=== PATIENT | male | born 1945 | race Caucasian/White ===

== ENCOUNTER 2017-01-21 18:17 | Inpatient (IN) | payer MEDICARE, MEDICAID ==
[~2017-01-21] VITALS: Ht 182.9 cm; Wt 77.1 kg
[2017-01-21] MEDS ORDERED: Sodium Chloride 500ML 500 ML IV ONE (18:53)
[2017-01-21 19:07] VITALS: BP 126/69
[2017-01-21] MEDS ORDERED: Acetaminophen 650 MG SUPP RECTAL ONE (19:15)
[2017-01-21 19:48] LABS: BASOPHILS % (AUTO) 1.2 % (0.0-2.0); EOSINOPHILS % (AUTO) 1.3 % (0.0-3.0); LYMPHOCYTES % (AUTO) 20.8 % (20.0-45.0); MEAN CORPUSCULAR HEMOGLOBIN 28.4 PG (27.0-31.0); MEAN CORPUSCULAR HGB CONC 31.6 G/DL (32.0-36.0); MEAN CORPUSCULAR VOLUME 90 FL (80-99); MEAN PLATELET VOLUME 5.5 FL (6.5-10.1); MONOCYTES % (AUTO) 9.1 % (1.0-10.0); NEUTROPHILS % (AUTO) 67.6 % (45.0-75.0); PLATELET COUNT 307 K/UL (150-450); RED BLOOD COUNT 3.93 M/UL (4.70-6.10); RED CELL DISTRIBUTION WIDTH 13.9 % (11.6-14.8); WHITE BLOOD COUNT 11.1 K/UL (4.8-10.8)
[2017-01-21 20:03] LABS: ALANINE AMINOTRANSFERASE 12 U/L (3-41); ALBUMIN/GLOBULIN RATIO 0.9 (1.0-2.7); ANION GAP 13 (5-15); ASPARTATE AMINO TRANSFERASE 15 U/L (5-40); CARBON DIOXIDE 28 mEQ/L (20-30); CHLORIDE 96 mEQ/L (98-107); CREATININE 0.8 mg/dL (0.7-1.2); GLOMERULAR FILTRATION RATE > 60 mL/min (>60); HEMOLYSIS 16; POTASSIUM 4.1 mEQ/L (3.4-4.9); SODIUM 137 mEQ/L (135-145)
[2017-01-21 20:10] LABS: KETONES,URINE 2+ (NEGATIVE); LEUKOCYTE ESTERASE ,URINE 3+ (NEGATIVE); NITRITE,URINE NEGATIVE (NEGATIVE); PH,URINE 9 (4.5-8.0); PROTEIN,URINE 3+ (NEGATIVE); UROBILINOGEN,URINE NORMAL MG/DL (0.0-1.0)
[2017-01-21 20:11] LABS: APPEARANCE,URINE SLIGHTLY CLOUDY
[2017-01-21 20:18] LABS: BACTERIA,URINE MANY /HPF; WBC,URINE 15-20 /HPF (0 - 0)
[2017-01-21 20:42] LABS: TROPONIN I < 0.30 ng/mL (<=0.30)
[2017-01-21] MEDS ORDERED: Azithromycin 500 MG in NS 275 ML IV ONE (20:45)
[2017-01-21] MEDS ORDERED: Piperacillin/Tazobactam 3.375 GM in NS 110 ML IVPB ONE (20:45)
[2017-01-21 20:47] LABS: CKMB 2.1 ng/mL (< 6.7)
[2017-01-21] MEDS ORDERED: LUBRICANT EYE15 M1 OP (22:07)
[2017-01-21] MEDS ORDERED: ATIVAN0.5 MG ORAL (22:07)
[2017-01-21] MEDS ORDERED: VITAMIN D1000 UNI1 ORAL (22:07)
[2017-01-21] MEDS ORDERED: RESTORIL15 MG ORAL (22:20)
[2017-01-21] MEDS ORDERED: LACTULOSE20 GM/301 ORAL (22:20)
[2017-01-21] MEDS ORDERED: METFORMIN HCL500 M1 ORAL (22:20)
[2017-01-21] MEDS ORDERED: DUONEB 0.5-3(2.53 ML HHN (22:20)
[2017-01-21] MEDS ORDERED: ALUM-MAG HYDRO360 ML PO (22:20)
[2017-01-21] MEDS ORDERED: SENNA8.6 M2 PO (22:20)
[2017-01-21] MEDS ORDERED: ACIDOPHILUS1 EAC6 PO (22:20)
[2017-01-21] MEDS ORDERED: MILK OF MA400 MG/51 ORAL (22:20)
[2017-01-21] MEDS ORDERED: COLACE100 MG ORAL (22:20)
[2017-01-21] MEDS ORDERED: NORVASC5 MG ORAL (22:20)
[2017-01-21] MEDS ORDERED: VITAMIN C250 MG ORAL (22:20)
[2017-01-21] MEDS ORDERED: MAG-OXIDE400 M1 PO (22:20)
[2017-01-21] MEDS ORDERED: MULTIVITAMINS1 EAC2 ORAL (22:20)
[2017-01-21] MEDS ORDERED: DULCOLAX10 MG RC (22:20)
[2017-01-21] MEDS ORDERED: TAMSULOSIN HCL0.4 MG ORAL (22:20)
[2017-01-21] MEDS ORDERED: LIPITOR40 MG ORAL (22:20)
[2017-01-21] MEDS ORDERED: COREG3.125 MG ORAL (22:20)
[2017-01-21] MEDS ORDERED: ACETAMINOPHEN325 M1 ORAL (22:20)
[2017-01-21] MEDS ORDERED: Zosyn 3.375gm inj ONE (22:22)
[2017-01-21 22:29] VITALS: BP 121/58
--- NOTE | 2017-01-21 22:57 | Emergency Room Report ---
History of Present Illness General Chief Complaint: Fever Source: Family Member, Medical Record Present Illness HPI 71-year-old male presents ED for evaluation. Per EMS patient noted to have fever and congestion x1 day. Patient resides in senior care. Patient is febrile in triage. Patient has history of CVA and unable to provide any additional history at this time. Showing no signs of distress upon arrival. Brother at bedside states that patient has been admitted multiple times for pneumonia. No other aggravating relieving factors. No other associated symptoms Allergies: Coded Allergies: No Known Allergies (Unverified , 01/21/17) Patient History Past Medical History: HTN, CVA/TIA, psych hx Pertinent Family History: none Social History: Denies: smoking, alcohol use, drug use Immunizations: UTD Reviewed Nursing Documentation: PMH: Agreed, PSxH: Agreed Nursing Documentation-PMH Past Medical History: No History, Except For Hx Hypertension: Yes Hx Diabetes: Yes Hx Gastrointestinal Problems: Yes - dysphagia History Of Psychiatric Problem: Yes - Bipolar, Major depressive disorder.anxiety Hx Neurological Problems: Yes - Muscle weakness Hx Cerebrovascular Accident: Yes Review of Systems All Other Systems: negative except mentioned in HPI Physical Exam Vital Signs Date Time Temp Pulse Resp B/P (MAP) Pulse Ox O2 Delivery O2 Flow Rate FiO2 01/21/17 18:25 102.0 96 24 125/72 94 Nasal Cannula 4.0 Sp02 EP Interpretation: reviewed, normal General Appearance: no apparent distress, alert, GCS 15, non-toxic Head: normocephalic, atraumatic Eyes: bilateral eye normal inspection, bilateral eye PERRL ENT: hearing grossly normal, normal pharynx, no angioedema, normal voice Neck: full range of motion, supple/symm/no masses Respiratory: crackles, speaking full sentences Cardiovascular #1: regular rate, rhythm, no edema Cardiovascular #2: 2+ carotid (R), 2+ carotid (L), 2+ radial (R), 2+ radial (L) , 2+ dorsalis pedis (R), 2+ dorsalis pedis (L) Gastrointestinal: normal bowel sounds, non tender, soft, non-distended, no guarding, no rebound Rectal: deferred Genitourinary: normal inspection, no CVA tenderness Musculoskeletal: back normal, gait/station normal, normal range of motion, non- tender Neurologic: other - nonverbal Psychiatric: other - nonverbal Reflexes: 3+ bicep (R), 3+ bicep (L), 3+ tricep (R), 3+ tricep (L), 3+ knee (R) , 3+ knee (L) Skin: normal color, no rash, warm/dry, well hydrated Lymphatic: no adenopathy Medical Decision Making Diagnostic Impression: Primary Impression: Pneumonia Qualified Codes: J18.9 - Pneumonia, unspecified organism ER Course Hospital Course 71-year-old M presenting to ED with respiratory distress, cough and crackles Differential diagnoses include: Pneumonia, CHF exacerbation, pneumothorax, fluid overload Clinical course Patient placed on stretcher. On bus driver/monitor. After initial history and physical, I ordered labs, IV fluids, EKG, chest x-ray, blood cultures, UA. Labs -leukocytosis noted, hemoglobin/hematocrit stable, electrolytes okay, lactate okay troponins negative CXR - pneumonia EKG - NSR, no acute ischemic changes interpreted by me IV fluids given, antibiotics given Case discussed with Dr. Sadler and he agreed to the patient to his service for further care and support I feel this is a highly complex case requiring extensive working including EKG/ Rhythm strip, Xray/CT/US, Blood/urine lab work, repeat exams while in ED, and administration of strong opiates/narcotics for pain control, admission to hospital or close patient follow up. Diagnosis - pneumonia Patient admitted to floor in serious condition Labs Test 01/21/17 19:26 01/21/17 19:40 White Blood Count 11.1 K/UL (4.8-10.8) Red Blood Count 3.93 M/UL (4.70-6.10) Hemoglobin 11.1 G/DL (14.2-18.0) Hematocrit 35.3 % (42.0-52.0) Mean Corpuscular Volume 90 FL (80-99) Mean Corpuscular Hemoglobin 28.4 PG (27.0-31.0) Mean Corpuscular Hemoglobin Concent 31.6 G/DL (32.0-36.0) Red Cell Distribution Width 13.9 % (11.6-14.8) Platelet Count 307 K/UL (150-450) Mean Platelet Volume 5.5 FL (6.5-10.1) Neutrophils (%) (Auto) 67.6 % (45.0-75.0) Lymphocytes (%) (Auto) 20.8 % (20.0-45.0) Monocytes (%) (Auto) 9.1 % (1.0-10.0) Eosinophils (%) (Auto) 1.3 % (0.0-3.0) Basophils (%) (Auto) 1.2 % (0.0-2.0) Sodium Level 137 mEQ/L (135-145) Potassium Level 4.1 mEQ/L (3.4-4.9) Chloride Level 96 mEQ/L (98-107) Carbon Dioxide Level 28 mEQ/L (20-30) Anion Gap 13 (5-15) Blood Urea Nitrogen 15 mg/dL (7-23) Creatinine 0.8 mg/dL (0.7-1.2) Estimat Glomerular Filtration Rate > 60 mL/min (>60) Glucose Level 167 mg/dL (74-106) Calcium Level 9.0 mg/dL (8.6-10.2) Total Bilirubin 0.2 mg/dL (0.0-1.2) Aspartate Amino Transf (AST/SGOT) 15 U/L (5-40) Alanine Aminotransferase (ALT/SGPT) 12 U/L (3-41) Alkaline Phosphatase 94 U/L (40-129) Total Creatine Kinase 92 U/L (38-174) Creatine Kinase MB 2.1 ng/mL (< 6.7) Creatine Kinase MB Relative Index 2.2 Troponin I < 0.30 ng/mL (<=0.30) Pro-B-Type Natriuretic Peptide 1110 pg/mL (0-125) Total Protein 7.0 g/dL (6.6-8.7) Albumin 3.4 g/dL (3.5-5.2) Globulin 3.6 g/dL Albumin/Globulin Ratio 0.9 (1.0-2.7) Urine Color Yellow Urine Appearance Slightly cloudy Urine pH 9 (4.5-8.0) Urine Specific [place] 1.015 (1.005-1.035) Urine Protein 3+ (NEGATIVE) Urine Glucose (UA) Negative (NEGATIVE) Urine Ketones 2+ (NEGATIVE) Urine Occult Blood 4+ (NEGATIVE) Urine Nitrite Negative (NEGATIVE) Urine Bilirubin Negative (NEGATIVE) Urine Urobilinogen Normal MG/DL (0.0-1.0) Urine Leukocyte Esterase 3+ (NEGATIVE) Urine RBC 5-10 /HPF (0 - 0) Urine WBC 15-20 /HPF (0 - 0) Urine Squamous Epithelial Cells None /LPF (NONE/OCC) Urine Bacteria Many /HPF (NONE) EKG Diagnostic Results Rate: normal Rhythm: NSR ST Segments: no acute changes ASA given to the pt in ED: No Rhythm Strip Diag. Results EP Interpretation: yes Rhythm: NSR, no PVC's, no ectopy Chest X-Ray Diagnostic Results Chest X-Ray Diagnostic Results : Chest X-Ray Ordered: Yes # of Views/Limited/Complete: 1 View Indication: Shortness of Breath EP Interpretation: Yes Interpretation: no pneumothorax, no acute cardiopulmonary disease Impression: Other - pneumonia Electronically Signed by: Electronically signed by Tomasz Quick MD Last Vital Signs Date Time Temp Pulse Resp B/P (MAP) Pulse Ox O2 Delivery O2 Flow Rate FiO2 01/21/17 22:29 100.7 95 25 121/58 100 Nasal Cannula 2.0 Status: improved Disposition: ADMITTED INPATIENT Condition: Serious Referrals: ASAD SADLER (PCP) TOMASZ QUICK M.D. Jan 21, 2017 22:57
[2017-01-22] VITALS: BP 117/54
[2017-01-22] MEDS: cefTRIAXone 1 GM in D5W 55 ML IVPB SCH (00:15)
[2017-01-22] MEDS: D5NS 1,000 ML IV SCH ×3 (02:29→11:21)
[2017-01-22 08:22] VITALS: BP 138/80
[2017-01-22] MEDS: Heparin 5000 units/ml inj SUBQ SCH ×2 (09:00→21:36)
--- NOTE | 2017-01-22 10:23 | Diagnostic Imaging Report ---
Indication: Dyspnea Comparison: None A single view chest radiograph was obtained. Findings: Fine reticular opacities demonstrated bilaterally nonspecific. Mild interstitial edema is in the differential diagnosis. Heart size is relatively normal. There is mild elevation of the left hemidiaphragm. The bones are osteopenic. Aorta is ectatic. Impression: Interstitial markings nonspecific. Mild interstitial edema is possible. Mild left basal atelectasis/volume loss. Osteoporosis
[2017-01-22] MEDS ORDERED: LORazepam 0.5mg tab ORAL PRN (11:00)
[2017-01-22] MEDS ORDERED: Milk of Magnesia 30ml Ud ORAL PRN (11:00)
[2017-01-22 11:43] VITALS: BP 140/76
[2017-01-22] MEDS: Albuterol/Ipratropium 3ml neb HHN SCH ×4 (12:00→23:00)
[2017-01-22] MEDS: Promethazine Plain 6.25mg/5ml ORAL PRN ×2 (12:02→21:55)
[2017-01-22] MEDS: Lactobacillus-GG tablet ORAL SCH ×2 (13:00→17:58)
[2017-01-22] MEDS ORDERED: D5NS 1000ml IV ONE (15:12)
[2017-01-22] MEDS ORDERED: Tubing IV Secondary IV ONE (15:12)
[2017-01-22 15:41] VITALS: BP 149/79
[2017-01-22] MEDS: metFORMIN 500mg tab ORAL SCH (17:58)
[2017-01-22] MEDS: Magnesium Oxide 400mg tab ORAL SCH (17:58)
[2017-01-22] MEDS: Lactulose 20gm/30ml UDC ORAL SCH (17:58)
--- NOTE | 2017-01-22 18:38 | Consultation ---
History of Present Illness General Date patient seen: Jan 22, 2017 Chief Complaint: Fever Present Illness HPI 71-year-old male with hx of CVA, HTN, DM, half-way resident bed bound presented to ED for evaluation of fever and congestion x1 day. He is unable to provide any additional history at this time. Showing no signs of distress. Brother at bedside states that patient has been admitted multiple times for pneumonia. PT was febrile in Er and admitted for treatmetnt of his sepsis. Allergies: Coded Allergies: No Known Allergies (Unverified , 01/21/17) Medication History Scheduled Amlodipine Besylate (Norvasc), 5 MG ORAL DAILY, (Reported) Ascorbic Acid* (Vitamin C*), 250 MG ORAL DAILY, (Reported) Atorvastatin Calcium* (Lipitor*), 40 MG ORAL BEDTIME, (Reported) Carboxymethylcellulose Sodium (Lubricant Eye), 1 DRP OP THREE TIMES A DAY, ( Reported) Carvedilol (Coreg), 3.125 MG ORAL EVERY 12 HOURS, (Reported) Cholecalciferol (Vitamin D3)* (Vitamin D*), 2,000 UNITS ORAL DAILY, (Reported) Docusate Sodium* (Colace*), 100 MG ORAL DAILY, (Reported) Ipratropium/Albuterol Sulfate (DuoNeb 0.5-3(2.5)mg/3ml), 3 ML HHN EVERY 4 HOURS, (Reported) Lactobacillus Acidophilus (Acidophilus), 1 EACH PO THREE TIMES A DAY, (Reported) Lactulose (Lactulose*), 15 ML ORAL BID, (Reported) Mag Hydrox/Al Hydrox/Simeth (Alum-Mag Hydroxide-Simeth Liq), 30 ML PO EVERY 4 HOURS, (Reported) Magnesium Hydroxide* (Milk Of Magnesia*), 30 ML ORAL DAILY, (Reported) Magnesium Oxide (Mag-Oxide), 400 MG PO BID, (Reported) Metformin Hcl* (Metformin Hcl*), 500 MG ORAL TWICE A DAY, (Reported) Multivitamins* (Multivitamins*), 1 TAB ORAL DAILY, (Reported) Sennosides (Senna), 2 TAB PO BEDTIME, (Reported) Tamsulosin Hcl (Tamsulosin Hcl*), 0.4 MG ORAL BEDTIME, (Reported) Scheduled PRN Acetaminophen* (Acetaminophen 325MG Tablet*), 650 MG ORAL Q4H PRN for MILD PAIN, (Reported) Bisacodyl (Dulcolax), 10 MG RC DAILY PRN for Constipation, (Reported) Lorazepam* (Ativan*), 0.5 MG ORAL EVERY 6 HOURS PRN for For Anxiety, (Reported) Temazepam* (Restoril*), 15 MG ORAL BEDTIME PRN for Insomnia, (Reported) Patient History Healthcare decision maker Robert Bassett Resuscitation status Full Code Advanced Directive on File Past Medical/Surgical History Past Medical/Surgical History: (1) History of CVA (cerebrovascular accident) (2) Limited mobility in bed Review of Systems All Other Systems: negative except mentioned in HPI Physical Exam General Appearance: WD/WN Lines, tubes and drains: peripheral HEENT: normocephalic, atraumatic Neck: non-tender, normal alignment Respiratory/Chest: chest wall non-tender, lungs clear Breasts: no masses Cardiovascular/Chest: normal peripheral pulses Abdomen: normal bowel sounds Genitourinary/Rectal: normal genital exam, normal rectal exam Skin Exam: normal pigmentation Last 24 Hour Vital Signs Date Time Temp Pulse Resp B/P (MAP) Pulse Ox O2 Delivery O2 Flow Rate FiO2 01/22/17 15:41 98.2 94 20 149/79 97 Nasal Cannula 2.0 01/22/17 14:44 92 16 99 Nasal Cannula 2.0 28 01/22/17 14:35 91 16 98 Nasal Cannula 2.0 28 01/22/17 14:35 28 01/22/17 12:00 90 140/76 01/22/17 12:00 90 140/76 01/22/17 11:43 98.1 90 21 140/76 96 Nasal Cannula 2.0 01/22/17 08:22 98.1 86 20 138/80 96 Nasal Cannula 2.0 01/22/17 00:00 99.6 96 20 117/54 96 01/21/17 23:01 100.7 95 25 121/58 100 Nasal Cannula 2.0 01/21/17 22:29 100.7 95 25 121/58 100 Nasal Cannula 2.0 01/21/17 19:07 102.0 104 27 126/69 100 Nasal Cannula 2.0 Intake and Output 01/22/17 01/23/17 19:00 07:00 Intake Total 420 ml Output Total 400 ml Balance 20 ml Intake Oral 420 ml Output Urine Total 400 ml # Bowel Movements 3 Laboratory Tests Test 01/21/17 19:26 01/21/17 19:40 White Blood Count 11.1 K/UL (4.8-10.8) H Red Blood Count 3.93 M/UL (4.70-6.10) L Hemoglobin 11.1 G/DL (14.2-18.0) L Hematocrit 35.3 % (42.0-52.0) L Mean Corpuscular Volume 90 FL (80-99) Mean Corpuscular Hemoglobin 28.4 PG (27.0-31.0) Mean Corpuscular Hemoglobin Concent 31.6 G/DL (32.0-36.0) L Red Cell Distribution Width 13.9 % (11.6-14.8) Platelet Count 307 K/UL (150-450) Mean Platelet Volume 5.5 FL (6.5-10.1) L Neutrophils (%) (Auto) 67.6 % (45.0-75.0) Lymphocytes (%) (Auto) 20.8 % (20.0-45.0) Monocytes (%) (Auto) 9.1 % (1.0-10.0) Eosinophils (%) (Auto) 1.3 % (0.0-3.0) Basophils (%) (Auto) 1.2 % (0.0-2.0) Sodium Level 137 mEQ/L (135-145) Potassium Level 4.1 mEQ/L (3.4-4.9) Chloride Level 96 mEQ/L (98-107) L Carbon Dioxide Level 28 mEQ/L (20-30) Anion Gap 13 (5-15) Blood Urea Nitrogen 15 mg/dL (7-23) Creatinine 0.8 mg/dL (0.7-1.2) Estimat Glomerular Filtration Rate > 60 mL/min (>60) Glucose Level 167 mg/dL (74-106) H Calcium Level 9.0 mg/dL (8.6-10.2) Total Bilirubin 0.2 mg/dL (0.0-1.2) Aspartate Amino Transf (AST/SGOT) 15 U/L (5-40) Alanine Aminotransferase (ALT/SGPT) 12 U/L (3-41) Alkaline Phosphatase 94 U/L (40-129) Total Creatine Kinase 92 U/L (38-174) Creatine Kinase MB 2.1 ng/mL (< 6.7) Creatine Kinase MB Relative Index 2.2 Troponin I < 0.30 ng/mL (<=0.30) Pro-B-Type Natriuretic Peptide 1110 pg/mL (0-125) H Total Protein 7.0 g/dL (6.6-8.7) Albumin 3.4 g/dL (3.5-5.2) L Globulin 3.6 g/dL Albumin/Globulin Ratio 0.9 (1.0-2.7) L Urine Color Yellow Urine Appearance Slightly cloudy Urine pH 9 (4.5-8.0) Urine Specific [place] 1.015 (1.005-1.035) Urine Protein 3+ (NEGATIVE) H Urine Glucose (UA) Negative (NEGATIVE) Urine Ketones 2+ (NEGATIVE) H Urine Occult Blood 4+ (NEGATIVE) H Urine Nitrite Negative (NEGATIVE) Urine Bilirubin Negative (NEGATIVE) Urine Urobilinogen Normal MG/DL (0.0-1.0) Urine Leukocyte Esterase 3+ (NEGATIVE) H Urine RBC 5-10 /HPF (0 - 0) H Urine WBC 15-20 /HPF (0 - 0) H Urine Squamous Epithelial Cells None /LPF (NONE/OCC) Urine Bacteria Many /HPF (NONE) H Microbiology Date/Time Source Procedure Growth Status 01/22/17 02:15 Sputum Gram Stain - Final Resulted 01/22/17 02:15 Sputum Sputum Culture Pending Resulted Height (Feet): 6 Weight (Pounds): 170 Medications Current Medications Medications (Trade) Dose Ordered Sig/Clint Route PRN Reason Start Time Stop Time Status Last Admin Dose Admin Acetaminophen (Tylenol) 650 mg Q4H PRN ORAL Mild Pain/Temp > 100.5 01/22/17 11:30 02/21/17 11:29 01/22/17 18:00 Albuterol/ Ipratropium (DuoNeb 0.5-3(2.5)mg/3ml) 3 ml Q4HRT HHN 01/22/17 12:00 01/27/17 11:59 01/22/17 14:40 Amlodipine Besylate (Norvasc) 5 mg DAILY ORAL 01/22/17 11:00 02/21/17 10:59 01/22/17 12:00 Ascorbic Acid (Vitamin C) 250 mg DAILY ORAL 01/23/17 09:00 02/22/17 08:59 Atorvastatin Calcium (Lipitor) 40 mg BEDTIME ORAL 01/22/17 21:00 02/21/17 20:59 Bisacodyl (Dulcolax) 10 mg DAILYPRN PRN RECTAL Constipation 01/22/17 11:00 02/21/17 10:59 Carvedilol (Coreg) 3.125 mg EVERY 12 HOURS ORAL 01/22/17 12:00 02/21/17 11:59 01/22/17 12:00 Ceftriaxone Sodium 1 gm/ Dextrose 55 ml @ 110 mls/hr Q24H IVPB 01/22/17 00:15 01/29/17 00:14 01/22/17 00:15 Docusate Sodium (Colace) 100 mg DAILY ORAL 01/23/17 09:00 02/22/17 08:59 Heparin Sodium (Porcine) (Heparin 5000 units/ml) 5,000 units EVERY 12 HOURS SUBQ 01/22/17 09:00 02/21/17 08:59 Lactobacillus Acidophilus (Culturelle) 1 tab THREE TIMES A DAY ORAL 01/22/17 13:00 02/21/17 12:59 01/22/17 17:58 Lactulose (Cephulac) 20 gm BID ORAL 01/22/17 18:00 02/21/17 17:59 01/22/17 17:58 Lorazepam (Ativan) 0.5 mg Q6H PRN ORAL For Anxiety 01/22/17 11:00 01/29/17 10:59 Magnesium Hydroxide (Mom) 30 ml DAILYPRN PRN ORAL Constipation 01/22/17 11:00 02/21/17 10:59 Magnesium Oxide (Mag-Ox 400mg) 400 mg BID ORAL 01/22/17 18:00 02/21/17 17:59 01/22/17 17:58 Metformin HCl (Glucophage) 500 mg TWICE A DAY ORAL 01/22/17 18:00 02/21/17 17:59 01/22/17 17:58 Multivitamins (Multivitamins) 1 tab DAILY ORAL 01/23/17 09:00 02/22/17 08:59 Promethazine HCl (Phenergan [place]) 6.25 mg TIDPRN PRN ORAL cough 01/22/17 08:00 02/21/17 07:59 01/22/17 12:02 Sennosides (Senokot) 17.2 mg QHS ORAL 01/22/17 21:00 02/21/17 20:59 Tamsulosin HCl (Flomax) 0.4 mg BEDTIME ORAL 01/22/17 21:00 02/21/17 20:59 Temazepam (Restoril) 15 mg HSPRN PRN ORAL Insomnia 01/22/17 11:00 01/29/17 10:59 Vitamin D (Vitamin D) 1,000 intlu DAILY ORAL 01/23/17 09:00 02/22/17 08:59 Assessment/Plan Problem List: (1) Sepsis ICD Codes: A41.9 - Sepsis, unspecified organism SNOMED: 12208527 (2) Fever ICD Codes: R50.9 - Fever, unspecified SNOMED: 263694412 (3) History of CVA (cerebrovascular accident) ICD Codes: Z86.73 - Personal history of transient ischemic attack (TIA), and cerebral infarction without residual deficits SNOMED: 697699822 (4) Limited mobility in bed SNOMED: 480896554 Assessment/Plan cueva culture IV abx dvt prophylaxis sliding scale swallow evaluation JM ALLISON Jan 22, 2017 18:38
[2017-01-22 20:00] VITALS: BP 127/77
[2017-01-22] MEDS: NovoLOG Insulin Flexpen SUBQ SCH (21:34)
[2017-01-22] MEDS: Tamsulosin 0.4mg cap ORAL SCH (21:36)
[2017-01-22] MEDS: Sennosides 8.6mg ORAL SCH (21:36)
[2017-01-22 21:58] VITALS: BP 137/77
[2017-01-23] VITALS: BP_SYST 122; BP_SYST 150; BP_DIAS 78; BP_DIAS 96
[2017-01-23] MEDS: cefTRIAXone 1 GM in D5W 55 ML IVPB SCH ×2 (00:01→23:03)
[2017-01-23] MEDS: Albuterol/Ipratropium 3ml neb HHN SCH ×6 (02:32→23:00)
[2017-01-23 04:00] VITALS: BP 150/96
[2017-01-23] MEDS: Promethazine Plain 6.25mg/5ml ORAL PRN ×2 (05:46→21:04)
[2017-01-23] MEDS: NovoLOG Insulin Flexpen SUBQ SCH ×4 (06:47→20:55)
[2017-01-23 08:01] VITALS: BP 133/76
[2017-01-23] MEDS: sitaGLIPtin 50mg tab ORAL SCH (08:39)
[2017-01-23] MEDS: Docusate 100mg cap ORAL SCH (08:40)
[2017-01-23] MEDS: Lactulose 20gm/30ml UDC ORAL SCH ×2 (08:40→17:38)
[2017-01-23] MEDS: Ascorbic Acid 500mg tab ORAL SCH (08:40)
[2017-01-23] MEDS: metFORMIN 500mg tab ORAL SCH ×2 (08:40→17:38)
[2017-01-23] MEDS: Lactobacillus-GG tablet ORAL SCH ×3 (08:41→17:37)
[2017-01-23] MEDS: Heparin 5000 units/ml inj SUBQ SCH ×2 (08:44→20:54)
[2017-01-23] MEDS: Magnesium Oxide 400mg tab ORAL SCH ×2 (08:57→17:38)
[2017-01-23] MEDS: Vitamin D 1000 IU Tab ORAL SCH (08:57)
[2017-01-23] MEDS: Vancomycin 1 GM in D5W 275 ML IVPB SCH ×2 (11:04→23:03)
--- NOTE | 2017-01-23 11:16 | Diagnostic Imaging Report ---
Indication: Cough Technique: XRAY CHEST 1 V Comparison: 01/21/17 Findings: Cardiomediastinal silhouette is stable. There is slight improved aeration in the left base. Mild interstitial opacities are again noted. No new infiltrates are seen. Osseous structures are stable. Impression: Slight improved aeration in the left base. Otherwise stable chest.
[2017-01-23 12:00] VITALS: BP 154/93
[2017-01-23 16:00] VITALS: BP 150/87
--- NOTE | 2017-01-23 16:42 | Pulmonology Progress Note ---
Assessment/Plan Problems: (1) Pneumonia (2) Fever (3) History of CVA (cerebrovascular accident) (4) Limited mobility in bed Assessment/Plan respiratory treatment iv abx check cultures chest pt antitussives dvt prophylaxis Subjective ROS Limited/Unobtainable: No Constitutional: Reports: no symptoms HEENT: Repors: no symptoms Allergies: Coded Allergies: No Known Allergies (Unverified , 01/21/17) Objective Last 24 Hour Vital Signs Date Time Temp Pulse Resp B/P (MAP) Pulse Ox O2 Delivery O2 Flow Rate FiO2 01/23/17 16:03 87 16 7 Room Air 21 01/23/17 16:00 97.3 75 20 150/87 96 Room Air 01/23/17 12:22 84 16 98 Room Air 01/23/17 12:20 Room Air 01/23/17 12:00 97.3 84 20 154/93 97 Room Air 01/23/17 08:42 88 133/76 01/23/17 08:40 88 133/76 01/23/17 08:26 87 18 98 Room Air 01/23/17 08:21 88 16 97 Room Air 01/23/17 08:20 88 16 Room Air 01/23/17 08:01 97.8 85 21 133/76 96 Room Air 01/23/17 04:00 98.4 64 21 150/96 99 Room Air 01/23/17 02:32 Nasal Cannula 2.0 01/23/17 02:32 Nasal Cannula 2.0 01/23/17 02:15 98.6 01/23/17 00:00 98.6 87 20 122/78 97 Room Air 01/23/17 00:00 98.4 64 21 150/96 99 Room Air 01/22/17 23:00 Nasal Cannula 2.0 28 01/22/17 23:00 Nasal Cannula 2.0 28 01/22/17 21:58 98.1 77 21 137/77 98 Room Air 01/22/17 21:37 90 133/75 01/22/17 20:14 Nasal Cannula 2.0 28 01/22/17 20:14 Nasal Cannula 2.0 28 01/22/17 20:13 90 18 Nasal Cannula 2.0 01/22/17 20:00 98.7 89 20 127/77 96 Nasal Cannula Intake and Output 01/23/17 01/24/17 19:00 07:00 Intake Total 240 ml Output Total 200 ml Balance 40 ml Intake Oral 240 ml Output Urine Total 200 ml # Bowel Movements 1 General Appearance: WD/WN HEENT: normocephalic, atraumatic Respiratory/Chest: chest wall non-tender, lungs clear Cardiovascular: normal peripheral pulses, normal rate Abdomen: normal bowel sounds, soft, non tender Genitourinary: normal external genitalia Extremities: no clubbing Skin: no rash, no ulcers Microbiology Date/Time Source Procedure Growth Status 01/21/17 19:26 Blood Blood Culture - Preliminary Resulted 01/21/17 19:15 Blood Blood Culture - Preliminary NO GROWTH AFTER 24 HOURS Resulted 01/22/17 02:15 Sputum Gram Stain - Final Resulted 01/22/17 02:15 Sputum Sputum Culture - Preliminary NORMAL UPPER RESPIRATORY TRINA PRESENT Resulted 01/21/17 19:40 Urine,Clean Catch Urine Culture - Preliminary Gram Negative Jesus Resulted Current Medications Medications (Trade) Dose Ordered Sig/Clint Route PRN Reason Start Time Stop Time Status Last Admin Dose Admin Acetaminophen (Tylenol) 650 mg Q4H PRN ORAL Mild Pain/Temp > 100.5 01/22/17 11:30 02/21/17 11:29 01/23/17 01:16 Albuterol/ Ipratropium (DuoNeb 0.5-3(2.5)mg/3ml) 3 ml Q4HRT HHN 01/22/17 12:00 01/27/17 11:59 01/23/17 16:02 Amlodipine Besylate (Norvasc) 5 mg DAILY ORAL 01/22/17 11:00 02/21/17 10:59 01/23/17 08:42 Ascorbic Acid (Vitamin C) 250 mg DAILY ORAL 01/23/17 09:00 02/22/17 08:59 01/23/17 08:40 Atorvastatin Calcium (Lipitor) 40 mg BEDTIME ORAL 01/22/17 21:00 02/21/17 20:59 01/22/17 21:36 Bisacodyl (Dulcolax) 10 mg DAILYPRN PRN RECTAL Constipation 01/22/17 11:00 02/21/17 10:59 Carvedilol (Coreg) 3.125 mg EVERY 12 HOURS ORAL 01/22/17 12:00 02/21/17 11:59 01/23/17 08:40 Ceftriaxone Sodium 1 gm/ Dextrose 55 ml @ 110 mls/hr Q24H IVPB 01/22/17 00:15 01/29/17 00:14 01/23/17 00:01 Dextrose (Dextrose 50%) STAT PRN IV Hypoglycemia 01/22/17 20:30 02/21/17 20:29 Docusate Sodium (Colace) 100 mg DAILY ORAL 01/23/17 09:00 02/22/17 08:59 01/23/17 08:40 Heparin Sodium (Porcine) (Heparin 5000 units/ml) 5,000 units EVERY 12 HOURS SUBQ 01/22/17 09:00 02/21/17 08:59 01/23/17 08:44 Insulin Aspart (NovoLOG) BEFORE MEALS AND HS SUBQ 01/22/17 21:00 02/21/17 20:59 01/23/17 11:58 Lactobacillus Acidophilus (Culturelle) 1 tab THREE TIMES A DAY ORAL 01/22/17 13:00 02/21/17 12:59 01/23/17 13:46 Lactulose (Cephulac) 20 gm BID ORAL 01/22/17 18:00 02/21/17 17:59 01/23/17 08:40 Lorazepam (Ativan) 0.5 mg Q6H PRN ORAL For Anxiety 01/22/17 11:00 01/29/17 10:59 Magnesium Hydroxide (Mom) 30 ml DAILYPRN PRN ORAL Constipation 01/22/17 11:00 02/21/17 10:59 Magnesium Oxide (Mag-Ox 400mg) 400 mg BID ORAL 01/22/17 18:00 02/21/17 17:59 01/23/17 08:57 Metformin HCl (Glucophage) 500 mg TWICE A DAY ORAL 01/22/17 18:00 02/21/17 17:59 01/23/17 08:40 Multivitamins (Multivitamins) 1 tab DAILY ORAL 01/23/17 09:00 02/22/17 08:59 01/23/17 08:41 Promethazine HCl (Phenergan [place]) 6.25 mg TIDPRN PRN ORAL cough 01/22/17 08:00 02/21/17 07:59 01/23/17 05:46 Sennosides (Senokot) 17.2 mg QHS ORAL 01/22/17 21:00 02/21/17 20:59 01/22/17 21:36 Sitagliptin Phosphate (Januvia) 50 mg DAILY ORAL 01/23/17 09:00 02/22/17 08:59 01/23/17 08:39 Tamsulosin HCl (Flomax) 0.4 mg BEDTIME ORAL 01/22/17 21:00 02/21/17 20:59 01/22/17 21:36 Temazepam (Restoril) 15 mg HSPRN PRN ORAL Insomnia 01/22/17 11:00 01/29/17 10:59 Vancomycin HCl (Vanco rx to dose) 1 ea DAILY PRN MISC Per rx protocol 01/23/17 10:45 02/22/17 10:44 Vancomycin HCl 1 gm/Dextrose 275 ml @ 183.708 mls/hr Q12H IVPB 01/23/17 11:00 01/28/17 10:59 01/23/17 11:04 Vitamin D (Vitamin D) 1,000 intlu DAILY ORAL 01/23/17 09:00 02/22/17 08:59 01/23/17 08:57 JM ALLISON Jan 23, 2017 16:42
[2017-01-23 19:16] VITALS: BP 140/88
[2017-01-23] MEDS: Sennosides 8.6mg ORAL SCH (21:00)
[2017-01-23] MEDS: Tamsulosin 0.4mg cap ORAL SCH (22:43)
[2017-01-24 00:18] VITALS: BP 140/83
[2017-01-24] MEDS: Albuterol/Ipratropium 3ml neb HHN SCH ×6 (03:00→23:00)
[2017-01-24 04:00] VITALS: BP 150/84
[2017-01-24] MEDS: NovoLOG Insulin Flexpen SUBQ SCH ×4 (06:45→20:27)
[2017-01-24 08:00] VITALS: BP 154/88
[2017-01-24] MEDS: Lactulose 20gm/30ml UDC ORAL SCH ×2 (08:27→18:32)
[2017-01-24] MEDS: metFORMIN 500mg tab ORAL SCH ×2 (08:28→18:32)
[2017-01-24] MEDS: sitaGLIPtin 50mg tab ORAL SCH (08:28)
[2017-01-24] MEDS: Magnesium Oxide 400mg tab ORAL SCH ×2 (08:28→18:32)
[2017-01-24] MEDS: Docusate 100mg cap ORAL SCH (08:28)
[2017-01-24] MEDS: Ascorbic Acid 500mg tab ORAL SCH (08:29)
[2017-01-24] MEDS: Lactobacillus-GG tablet ORAL SCH ×3 (08:29→18:32)
[2017-01-24] MEDS: Vitamin D 1000 IU Tab ORAL SCH (08:29)
[2017-01-24] MEDS: Heparin 5000 units/ml inj SUBQ SCH ×2 (08:31→20:26)
[2017-01-24] MEDS: Promethazine Plain 6.25mg/5ml ORAL PRN (10:10)
--- NOTE | 2017-01-24 10:30 | Diagnostic Imaging Report ---
Indication: Chest pain Technique: XRAY CHEST 1 V Comparison: 01/23/17 Findings: Cardiomediastinal silhouette is stable. The lungs are unchanged without new infiltrates. Osseous structures are stable. Impression: No significant change from 01/23/17.
[2017-01-24 12:00] VITALS: BP 145/80
[2017-01-24] MEDS: Vancomycin 1 GM in D5W 275 ML IVPB SCH ×2 (12:23→23:17)
--- NOTE | 2017-01-24 14:41 | Infectious Diseases Prog Note ---
Assessment/Plan Assessment/Plan ID consult dictated # [id number] Subjective Allergies: Coded Allergies: No Known Allergies (Unverified , 01/21/17) Objective Vital Signs Last 24 Hour Vital Signs Date Time Temp Pulse Resp B/P (MAP) Pulse Ox O2 Delivery O2 Flow Rate FiO2 01/24/17 12:00 97.3 84 20 145/80 95 Room Air 01/24/17 11:21 Room Air 21 01/24/17 11:21 90 16 98 Room Air 21 01/24/17 08:29 94 154/88 01/24/17 08:28 94 154/88 01/24/17 08:00 97.5 94 20 154/88 98 Room Air 01/24/17 07:38 98 18 99 Room Air 21 01/24/17 07:38 98 18 Room Air 21 01/24/17 07:38 98 18 99 Room Air 21 01/24/17 04:00 98.1 90 20 150/84 96 Room Air 01/24/17 03:37 Room Air 21 01/24/17 03:37 Room Air 21 01/24/17 00:18 98.0 90 18 140/83 96 Room Air 01/23/17 22:37 Room Air 21 01/23/17 22:37 Room Air 21 01/23/17 20:51 94 140/88 01/23/17 19:58 94 18 96 Room Air 21 01/23/17 19:20 94 18 Room Air 21 01/23/17 19:20 Room Air 21 01/23/17 19:16 98.1 95 19 140/88 97 Room Air 01/23/17 16:03 87 16 97 Room Air 21 01/23/17 16:00 97.3 75 20 150/87 96 Room Air 01/23/17 15:10 89 18 98 Room Air Height (Feet): 6 Weight (Pounds): 170 Microbiology Date/Time Source Procedure Growth Status 01/21/17 19:26 Blood Blood Culture - Preliminary Staphylococcus Sp Coag Neg Resulted 01/21/17 19:15 Blood Blood Culture - Preliminary NO GROWTH AFTER 48 HOURS Resulted 01/22/17 02:15 Sputum Gram Stain - Final Complete 01/22/17 02:15 Sputum Sputum Culture - Final NORMAL UPPER RESPIRATORY TRINA PRESENT Complete 01/21/17 19:40 Urine,Clean Catch Urine Culture - Final Proteus Mirabilis Complete Current Medications Medications (Trade) Dose Ordered Sig/Clint Route PRN Reason Start Time Stop Time Status Last Admin Dose Admin Acetaminophen (Tylenol) 650 mg Q4H PRN ORAL Mild Pain/Temp > 100.5 01/22/17 11:30 02/21/17 11:29 01/23/17 01:16 Albuterol/ Ipratropium (DuoNeb 0.5-3(2.5)mg/3ml) 3 ml Q4HRT HHN 01/22/17 12:00 01/27/17 11:59 01/23/17 16:02 Amlodipine Besylate (Norvasc) 5 mg DAILY ORAL 01/22/17 11:00 02/21/17 10:59 01/24/17 08:29 Ascorbic Acid (Vitamin C) 250 mg DAILY ORAL 01/23/17 09:00 02/22/17 08:59 01/24/17 08:29 Atorvastatin Calcium (Lipitor) 40 mg BEDTIME ORAL 01/22/17 21:00 02/21/17 20:59 01/23/17 20:51 Bisacodyl (Dulcolax) 10 mg DAILYPRN PRN RECTAL Constipation 01/22/17 11:00 02/21/17 10:59 Carvedilol (Coreg) 3.125 mg EVERY 12 HOURS ORAL 01/22/17 12:00 02/21/17 11:59 01/24/17 08:28 Ceftriaxone Sodium 1 gm/ Dextrose 55 ml @ 110 mls/hr Q24H IVPB 01/22/17 00:15 01/29/17 00:14 01/23/17 23:03 Dextrose (Dextrose 50%) STAT PRN IV Hypoglycemia 01/22/17 20:30 02/21/17 20:29 Docusate Sodium (Colace) 100 mg DAILY ORAL 01/23/17 09:00 02/22/17 08:59 01/23/17 08:40 Heparin Sodium (Porcine) (Heparin 5000 units/ml) 5,000 units EVERY 12 HOURS SUBQ 01/22/17 09:00 02/21/17 08:59 01/24/17 08:31 Insulin Aspart (NovoLOG) BEFORE MEALS AND HS SUBQ 01/22/17 21:00 02/21/17 20:59 01/24/17 12:20 Lactobacillus Acidophilus (Culturelle) 1 tab THREE TIMES A DAY ORAL 01/22/17 13:00 02/21/17 12:59 01/24/17 13:08 Lactulose (Cephulac) 20 gm BID ORAL 01/22/17 18:00 02/21/17 17:59 01/23/17 08:40 Lorazepam (Ativan) 0.5 mg Q6H PRN ORAL For Anxiety 01/22/17 11:00 01/29/17 10:59 Magnesium Hydroxide (Mom) 30 ml DAILYPRN PRN ORAL Constipation 01/22/17 11:00 02/21/17 10:59 Magnesium Oxide (Mag-Ox 400mg) 400 mg BID ORAL 01/22/17 18:00 02/21/17 17:59 01/24/17 08:28 Metformin HCl (Glucophage) 500 mg TWICE A DAY ORAL 01/22/17 18:00 02/21/17 17:59 01/24/17 08:28 Multivitamins (Multivitamins) 1 tab DAILY ORAL 01/23/17 09:00 02/22/17 08:59 01/24/17 08:29 Promethazine HCl (Phenergan Plain) 6.25 mg TIDPRN PRN ORAL cough 01/22/17 08:00 02/21/17 07:59 01/24/17 10:10 Sennosides (Senokot) 17.2 mg QHS ORAL 01/22/17 21:00 02/21/17 20:59 01/22/17 21:36 Sitagliptin Phosphate (Januvia) 50 mg DAILY ORAL 01/23/17 09:00 02/22/17 08:59 01/24/17 08:28 Tamsulosin HCl (Flomax) 0.4 mg BEDTIME ORAL 01/22/17 21:00 02/21/17 20:59 01/23/17 22:43 Temazepam (Restoril) 15 mg HSPRN PRN ORAL Insomnia 01/22/17 11:00 01/29/17 10:59 Vancomycin HCl (Vanco rx to dose) 1 ea DAILY PRN MISC Per rx protocol 01/23/17 10:45 02/22/17 10:44 Vancomycin HCl 1 gm/Dextrose 275 ml @ 183.708 mls/hr Q12H IVPB 01/23/17 11:00 01/28/17 10:59 01/24/17 12:23 Vitamin D (Vitamin D) 1,000 intlu DAILY ORAL 01/23/17 09:00 02/22/17 08:59 01/24/17 08:29 AMAURY GONZALEZ Jan 24, 2017 14:41
[2017-01-24 16:00] VITALS: BP 142/75
[2017-01-24 20:00] VITALS: BP 139/88
[2017-01-24] MEDS: Tamsulosin 0.4mg cap ORAL SCH (20:25)
[2017-01-24] MEDS: Sennosides 8.6mg ORAL SCH (20:27)
--- NOTE | 2017-01-24 22:49 | Pulmonology Progress Note ---
Assessment/Plan Problems: (1) Pneumonia (2) Fever (3) History of CVA (cerebrovascular accident) (4) Limited mobility in bed Assessment/Plan improving respiratory treatment iv abx check cultures chest pt antitussives dvt prophylaxis Subjective ROS Limited/Unobtainable: No Constitutional: Reports: no symptoms HEENT: Repors: no symptoms Allergies: Coded Allergies: No Known Allergies (Unverified , 01/21/17) Objective Last 24 Hour Vital Signs Date Time Temp Pulse Resp B/P (MAP) Pulse Ox O2 Delivery O2 Flow Rate FiO2 01/24/17 20:25 90 137/81 01/24/17 20:00 98.2 91 20 139/88 95 Room Air 01/24/17 19:00 Room Air 21 01/24/17 19:00 90 18 Room Air 21 01/24/17 19:00 91 16 95 Room Air 21 01/24/17 16:00 98.2 82 20 142/75 97 Room Air 01/24/17 15:10 89 16 98 Room Air 21 01/24/17 15:02 21 01/24/17 15:02 90 16 98 Room Air 21 01/24/17 12:00 97.3 84 20 145/80 95 Room Air 01/24/17 11:21 Room Air 21 01/24/17 11:21 90 16 98 Room Air 21 01/24/17 08:29 94 154/88 01/24/17 08:28 94 154/88 01/24/17 08:00 97.5 94 20 154/88 98 Room Air 01/24/17 07:38 98 18 99 Room Air 21 01/24/17 07:38 98 18 Room Air 21 01/24/17 07:38 98 18 99 Room Air 21 01/24/17 04:00 98.1 90 20 150/84 96 Room Air 01/24/17 03:37 Room Air 21 01/24/17 03:37 Room Air 21 01/24/17 00:18 98.0 90 18 140/83 96 Room Air Intake and Output 01/24/17 01/25/17 19:00 07:00 Intake Total 120 ml Balance 120 ml Intake Oral 120 ml # Voids 4 # Bowel Movements 1 Objective General Appearance: WD/WN HEENT: normocephalic, atraumatic Respiratory/Chest: chest wall non-tender, lungs clear Cardiovascular: normal peripheral pulses, normal rate Abdomen: normal bowel sounds, soft, non tender Genitourinary: normal external genitalia Extremities: no clubbing Skin: no rash, no ulcers Microbiology Date/Time Source Procedure Growth Status 01/22/17 02:15 Sputum Gram Stain - Final Complete 01/22/17 02:15 Sputum Sputum Culture - Final NORMAL UPPER RESPIRATORY TRINA PRESENT Complete Laboratory Tests 01/24/17 22:00: Vancomycin Level Trough 15.1H Current Medications Medications (Trade) Dose Ordered Sig/Clint Route PRN Reason Start Time Stop Time Status Last Admin Dose Admin Acetaminophen (Tylenol) 650 mg Q4H PRN ORAL Mild Pain/Temp > 100.5 01/22/17 11:30 02/21/17 11:29 01/23/17 01:16 Albuterol/ Ipratropium (DuoNeb 0.5-3(2.5)mg/3ml) 3 ml Q4HRT HHN 01/22/17 12:00 01/27/17 11:59 01/24/17 15:01 Amlodipine Besylate (Norvasc) 5 mg DAILY ORAL 01/22/17 11:00 02/21/17 10:59 01/24/17 08:29 Ascorbic Acid (Vitamin C) 250 mg DAILY ORAL 01/23/17 09:00 02/22/17 08:59 01/24/17 08:29 Atorvastatin Calcium (Lipitor) 40 mg BEDTIME ORAL 01/22/17 21:00 02/21/17 20:59 01/24/17 20:26 Bisacodyl (Dulcolax) 10 mg DAILYPRN PRN RECTAL Constipation 01/22/17 11:00 02/21/17 10:59 Carvedilol (Coreg) 3.125 mg EVERY 12 HOURS ORAL 01/22/17 12:00 02/21/17 11:59 01/24/17 20:25 Ceftriaxone Sodium 1 gm/ Dextrose 55 ml @ 110 mls/hr Q24H IVPB 01/22/17 00:15 01/29/17 00:14 01/23/17 23:03 Dextrose (Dextrose 50%) STAT PRN IV Hypoglycemia 01/22/17 20:30 02/21/17 20:29 Docusate Sodium (Colace) 100 mg DAILY ORAL 01/23/17 09:00 02/22/17 08:59 01/23/17 08:40 Heparin Sodium (Porcine) (Heparin 5000 units/ml) 5,000 units EVERY 12 HOURS SUBQ 01/22/17 09:00 02/21/17 08:59 01/24/17 20:26 Insulin Aspart (NovoLOG) BEFORE MEALS AND HS SUBQ 01/22/17 21:00 02/21/17 20:59 01/24/17 20:27 Lactobacillus Acidophilus (Culturelle) 1 tab THREE TIMES A DAY ORAL 01/22/17 13:00 02/21/17 12:59 01/24/17 18:32 Lactulose (Cephulac) 20 gm BID ORAL 01/22/17 18:00 02/21/17 17:59 01/24/17 18:32 Lorazepam (Ativan) 0.5 mg Q6H PRN ORAL For Anxiety 01/22/17 11:00 01/29/17 10:59 Magnesium Hydroxide (Mom) 30 ml DAILYPRN PRN ORAL Constipation 01/22/17 11:00 02/21/17 10:59 Magnesium Oxide (Mag-Ox 400mg) 400 mg BID ORAL 01/22/17 18:00 02/21/17 17:59 01/24/17 18:32 Metformin HCl (Glucophage) 500 mg TWICE A DAY ORAL 01/22/17 18:00 02/21/17 17:59 01/24/17 18:32 Multivitamins (Multivitamins) 1 tab DAILY ORAL 01/23/17 09:00 02/22/17 08:59 01/24/17 08:29 Promethazine HCl (Phenergan Plain) 6.25 mg TIDPRN PRN ORAL cough 01/22/17 08:00 02/21/17 07:59 01/24/17 10:10 Sennosides (Senokot) 17.2 mg QHS ORAL 01/22/17 21:00 02/21/17 20:59 01/22/17 21:36 Sitagliptin Phosphate (Januvia) 50 mg DAILY ORAL 01/23/17 09:00 02/22/17 08:59 01/24/17 08:28 Tamsulosin HCl (Flomax) 0.4 mg BEDTIME ORAL 01/22/17 21:00 02/21/17 20:59 01/24/17 20:25 Temazepam (Restoril) 15 mg HSPRN PRN ORAL Insomnia 01/22/17 11:00 01/29/17 10:59 Vancomycin HCl (Vanco rx to dose) 1 ea DAILY PRN MISC Per rx protocol 01/23/17 10:45 02/22/17 10:44 Vancomycin HCl 1 gm/Dextrose 275 ml @ 183.708 mls/hr Q12H IVPB 01/23/17 11:00 01/28/17 10:59 01/24/17 12:23 Vitamin D (Vitamin D) 1,000 intlu DAILY ORAL 01/23/17 09:00 02/22/17 08:59 01/24/17 08:29 JM ALLISON Jan 24, 2017 22:49
[2017-01-25] VITALS (7 sets, daily range): BP systolic 112–133; BP diastolic 59–86
[2017-01-25] MEDS: cefTRIAXone 1 GM in D5W 55 ML IVPB SCH ×3 (00:50→23:58)
[2017-01-25] MEDS: Promethazine Plain 6.25mg/5ml ORAL PRN (00:53)
[2017-01-25] MEDS: Albuterol/Ipratropium 3ml neb HHN SCH ×6 (03:00→23:00)
[2017-01-25] MEDS: NovoLOG Insulin Flexpen SUBQ SCH ×4 (06:30→21:45)
--- NOTE | 2017-01-25 06:45 | Consultation ---
DATE OF CONSULTATION: 01/24/2017 INFECTIOUS DISEASE CONSULTATION This consult is for coverage of Dr. Olea. CONSULTING PHYSICIAN: Eber Napier M.D. PRIMARY ATTENDING PHYSICIAN: Epi Nicholas M.D. REASON FOR CONSULTATION: Pneumonia and UTI. HISTORY OF PRESENT ILLNESS: This is a 71-year-old male, admitted on 01/21/2017 from a [facility] facility because of fever, has temperature of 102 with underlying leukocytosis, has coughing, has limited communication. PAST MEDICAL HISTORY: Significant for CVA, diabetes mellitus type 2 with neuropathy, dysphagia, hypertension, has history of osteomyelitis of right heel area. ALLERGIES: No known drug allergies. MEDICATIONS: Vancomycin, vitamin C, multivitamin, Colace, vitamin D, Januvia, Flomax, Senokot, Lipitor, insulin, metformin, magnesium oxide, lactulose, DuoNeb inhaler, carvedilol, Tylenol, temazepam, amlodipine, bisacodyl, milk of magnesia, promethazine, and ceftriaxone. SOCIAL HISTORY: detention resident. No history of alcohol, drug abuse, or smoking. REVIEW OF SYSTEMS: Limited. PHYSICAL EXAMINATION: GENERAL APPEARANCE: No acute distress. VITAL SIGNS: Temperature 97.3, pulse 84, and blood pressure 145/80. HEAD AND NECK: [place] conjunctivae. HEART: Regular. LUNGS: Clear. ABDOMEN: Soft and nontender. EXTREMITIES: No edema. Has severe muscle atrophy of legs. Has pressure ulcer in the right heel area and some skin thickening in sacral area. LABORATORY AND DIAGNOSTIC DATA: Urine culture grow Proteus mirabilis. Sputum, normal connor. Blood culture x1 is Staph coagulase-negative. Another culture is negative. WBC is 11.1, hemoglobin 11.1, hematocrit 35.3, and platelets 307,000. Sodium 137, potassium 4.1, chloride 96, bicarbonate 28, BUN 15, creatinine 0.8, and glucose 167. Chest x-ray show some interstitial infiltrates or edema. IMPRESSION: 1. Fever, likely sepsis secondary to urinary tract infection. The patient at this point may have some aspiration pneumonitis or pneumonia. 2. Diabetes mellitus type 2, has pressure ulcer that is worse in the right heel. The patient had also history of osteomyelitis of the heel. 3. History of cerebrovascular accident. 4. Dysphagia. RECOMMENDATIONS: We will continue with vancomycin and Rocephin. We will order an x-ray of right heel. Follow up the culture. Case was discussed in detail with the patient's brother. At the end of my examination, I thank, Dr. Nicholas, for involving me in the care of this patient. Eber Napier M.D. DR: CAROLYN JOB#: [id number] CC:
--- NOTE | 2017-01-25 08:45 | History and Physical Report ---
DATE OF ADMISSION: 01/21/2017 CHIEF COMPLAINT: This is the first admission to [facility] of this 71-year-old man because of right lower lobe pneumonia. HISTORY OF PRESENT ILLNESS: The patient is a resident of an extended care facility where he has been in stable condition over the last several weeks. He is known to have several chronic medical syndrome, but has been stable on his current medication. On the day of admission, he developed fever, cough, tachycardia, and tachypnea. He appeared to be toxic and was transferred by paramedics to [facility] ER and was admitted. PAST MEDICAL HISTORY: Medically, he is known to have chronic psychosis now for many years. MEDICATIONS: As can be seen in the MAR. ALLERGIES: No known drug allergies. SOCIAL HISTORY: He is single. He was born in . He has been in [place] for more than 9 years. Prior to the appearance of his total disability, he was unemployed as well. HABITS: The patient did smoke one pack a day, but discontinued smoking long time ago. He denied drinking and denied the use of illicit drugs. FAMILY HISTORY: Both parents in their 70s from cardiovascular disease. He has 1 brother and 1 sister in good health. He has no children. REVIEW OF SYSTEMS: CARDIOVASCULAR: The patient denied any chest pain. His shortness of breath is attributed to his pulmonary condition. He has no palpitation and no dizziness. PULMONARY: The patient has acute cough, acute , and no wheezing. GASTROINTESTINAL: His appetite is moderate. His weight is stable. He has no dysphagia. No dyspepsia. No bowel movement disorder. GENITOURINARY: The patient denied any dysuria, frequency, or incontinence. Nocturia is 0 to 2. JOINTS: The patient denied any pain, swelling, stiffness, cold extremities, photosensitivity, dry eyes, or alopecia. CENTRAL NERVOUS SYSTEM: Sleep is of good quality provided he is using a benzodiazepine. He has no numbness, tingling, seizure disorder, and has no headache. PHYSICAL EXAMINATION: VITAL SIGNS: Blood pressure is 138/92, pulse is 86, respirations 20, and temperature is 102.0 degrees. HEENT: Eyes were normal. Pupils were round, equal, and reactive to light. Sclerae were white. Conjunctivae were pink. Extraocular movements were normal. Temporal arteries were palpable bilaterally. There was some bilateral temporal wasting. Visual dee to confrontation were normal. Neglect sign could not be assessed. ENT, mucous membranes were not dehydrated. Auditory canals were clear and tympanic membranes could not be visualized. Nasal cavity was not congested. Nasal septum was intact. Soft palate, pharynx, and uvula could not be visualized because of lack of the patient's cooperation. Tongue was moist, midline, and normally papillated. NECK: Supple. There was no goiter. No mass. No lymphadenopathy. There was no JVD. No bruits. Carotid upstroke was 2+. LUNGS: There were bilateral rhonchi in both lung dee. HEART: PMI was in the 5th left intercostal space in midclavicular line. There was normal S1 and normal S2. There was no murmur. No arrhythmia. No S3. No S4. No pericardial rub. There was tachycardia at rest. EKG done in the emergency room revealed the patient had sinus tachycardia. ABDOMEN: Soft and nontender without organomegaly. There was no mass palpable. Normal bowel sounds without bruits. There was no guarding. No rebound tenderness. No ascites. No hernia. No CVA tenderness. Liver span was 8 cm, smooth, and nontender. EXTREMITIES: There was no cyanosis, no clubbing, and no edema. Extremities were warm. NEUROLOGICAL: Reflexes in biceps, triceps, and brachioradialis were symmetric and equal. Patellar retinaculum was symmetric and equal. Plantars were in flexion. Cranial nerves II through XII were symmetric and equal. Cerebellar function, gait, [id number] rapid alternating movements, and Romberg sign could not be assessed. There was no tremor. No nystagmus. No extrapyramidal rigidity. Sensory exam to pinprick, cotton touch, and position are grossly normal. Motor strength was 5/5 against resistance in upper and lower extremities in proximal and distal muscles though the patient is not exactly cooperate in this assessment. LABORATORY AND DIAGNOSTIC DATA: Hemoglobin 11.1, hematocrit 33.3, MCV of 90, WBC of 11.1, and platelets are 307,000. His BUN and creatinine are 15 and 0.6 respectively, sodium is 137, potassium 4.1, chloride 96, and CO2 was 28. His troponin was not detected. His albumin was 3.4. His globulin was 3.6. His sugar 167. His urinalysis with 2+ ketones, 4+ occult blood, 3+ leukocyte esterase, 5 to 10 RBC per high-power field, and 15 to 20 WBC per high-power field. The patient was nitrite negative. Chest x-ray as reported by the ER physician with right lower lobe pneumonia and possible congestive heart failure. IMPRESSION: The patient has right lower lobe pneumonia of probably chronic obstructive pulmonary disease and chronic psychosis and inefficient cough. PLAN: The patient's sputum was sent to culture and sensitivity if not done by emergency room and the patient will be IV piggyback q.24 h. ____ therapy with albuterol sulfate and ipratropium bromide inhalation therapy every 4 hours on a p.r.n. basis. Pulmonary building consultant was called to assist in the management of this case. Epi Nicholas M.D. DR: Aidan JOB#: [id number] CC:
--- NOTE | 2017-01-25 09:02 | Progress Note ---
DATE: 01/23/2017 SUBJECTIVE: The patient is awake, alert, afebrile, and hemodynamically stable. He has persistent dry cough intermittently productive. PHYSICAL EXAMINATION: VITAL SIGNS: Blood pressure is 140/80s, pulse was 94, respirations 18, and temperature 98.1 degrees. HEENT: Eyes were normal. ENT, mucous membranes were moist and intact. NECK: Supple with no JVD without lymph nodes. LUNGS: Clear. HEART: Normal sounds with regular beats. ABDOMEN: Soft and nontender with normal bowel sounds. EXTREMITIES: Warm without cyanosis, clubbing, or edema. LABORATORY AND DIAGNOSTIC DATA: No laboratory data available now for two days. BUN and creatinine is 16 and 0.8 respectively. Sodium was 137, potassium 4.1, chloride 96, and CO2 is 28. Hemoglobin 11.1, hematocrit is 35.3 with MCV of 90, WBC 11.1, and platelet is apparently was undetected. ProBNP was 1100. Albumin is 3.4. Total protein 7. Chest x-ray done today slight improvement in the right and left lower lobe bases. . Urine culture revealed gram-negative rods . IMPRESSION AND PLAN: Gram-positive bacteremia. He will be placed on vancomycin 1 g IV piggyback q.12 hours. His chest x-ray is slightly improved, but clinically the patient has grossly not improved. Repeat laboratory tests will be done in the morning. Epi Nicholas M.D. DR: CATHLEEN JOB#: [id number] CC:
[2017-01-25] MEDS: metFORMIN 500mg tab ORAL SCH ×2 (09:14→17:52)
[2017-01-25] MEDS: Lactobacillus-GG tablet ORAL SCH ×3 (09:15→17:52)
[2017-01-25] MEDS: Magnesium Oxide 400mg tab ORAL SCH ×2 (09:15→17:52)
[2017-01-25] MEDS: Ascorbic Acid 500mg tab ORAL SCH (09:16)
[2017-01-25] MEDS: Docusate 100mg cap ORAL SCH (09:16)
[2017-01-25] MEDS: Vitamin D 1000 IU Tab ORAL SCH (09:16)
[2017-01-25] MEDS: Lactulose 20gm/30ml UDC ORAL SCH ×2 (09:16→17:53)
[2017-01-25] MEDS: sitaGLIPtin 50mg tab ORAL SCH (09:16)
[2017-01-25] MEDS: Heparin 5000 units/ml inj SUBQ SCH ×2 (09:18→21:46)
[2017-01-25] MEDS: Vancomycin 1 GM in D5W 275 ML IVPB SCH (11:49)
--- NOTE | 2017-01-25 12:37 | Diagnostic Imaging Report ---
Indication: Pain Comparison: None Lateral and Moses view of the right calcaneus obtained. Findings: Erosion of the posterior part of the calcaneus versus previous resection noted. There is foreshortening of the calcaneus with absence of the posterior portion with well corticated margins. There is no soft tissue gas. Bones are severely osteopenic. There are vascular calcifications present. 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
--- NOTE | 2017-01-25 12:42 | Infectious Diseases Prog Note ---
Assessment/Plan Assessment/Plan IMPRESSION: - Fever- resolved; likely 2ry to UTI vs Aspiration PNA or pneumonitis u/a WBC 15-20, nit neg, leuk +3; ucx 10-20K P mirabilis (S. Ancef, I Cipro/ levo) sp cx normal connor CXR 01/21: Interstitial markings nonspecific. Mild interstitial edema is possible. Mild left basal atelectasis/volume loss. -ConS bacteremia- likely contaminant, -Bcx 01/21 2/ Cons (from same set) -Pressure heel ulcer,with prior hx of OM -xray: Abnormal appearance of the posterior calcaneus which is either been resected or chronically eroded. -Dm2 -CVA -Dysphagia RECOMMENDATIONS: -Will continue IV Vancomycin #3 for now pending repeat Bcx -if repeat Bcx NTD,will d/c -Cont IV Ceftriaxone #/ for UTI -upon discharge can be transitioned to PO keflex -s/p 1 d Zosyn and azithromycin 01/21 -CBC/CMP today -2 sets of Bcx Discused with RN and brother at bedside. Subjective Allergies: Coded Allergies: No Known Allergies (Unverified , 01/21/17) Subjective afebrile in >72hrs no labs since 01/21 Objective Vital Signs Last 24 Hour Vital Signs Date Time Temp Pulse Resp B/P (MAP) Pulse Ox O2 Delivery O2 Flow Rate FiO2 01/25/17 11:40 Room Air 01/25/17 11:35 90 16 97 Room Air 01/25/17 09:17 93 129/59 01/25/17 09:16 93 129/59 01/25/17 08:00 98.1 93 20 129/59 96 Room Air 01/25/17 07:12 92 16 97 Room Air 01/25/17 07:12 Room Air 01/25/17 07:12 92 18 Room Air 01/25/17 04:00 98.4 88 20 126/86 95 Room Air 01/25/17 03:35 Room Air 01/25/17 03:34 Room Air 01/25/17 00:00 98.2 85 21 133/86 94 Room Air 01/24/17 23:21 Room Air 21 01/24/17 23:20 Room Air 21 01/24/17 20:25 90 137/81 01/24/17 20:00 98.2 91 20 139/88 95 Room Air 01/24/17 19:00 Room Air 21 01/24/17 19:00 90 18 Room Air 21 01/24/17 19:00 91 16 95 Room Air 21 01/24/17 16:00 98.2 82 20 142/75 97 Room Air 01/24/17 15:10 89 16 98 Room Air 21 01/24/17 15:02 21 01/24/17 15:02 90 16 98 Room Air 21 Height (Feet): 6 Weight (Pounds): 170 Objective GENERAL APPEARANCE: No acute distress. HEAD AND NECK: [place] conjunctivae. HEART: Regular. LUNGS: Clear. ABDOMEN: Soft and nontender. EXTREMITIES: No edema. Has severe muscle atrophy of legs. Has pressure ulcer in the right heel area and some skin thickening in sacral area. Laboratory Tests Test 01/24/17 22:00 Vancomycin Level Trough 15.1 ug/mL (5.0-12.0) H Current Medications Medications (Trade) Dose Ordered Sig/Clint Route PRN Reason Start Time Stop Time Status Last Admin Dose Admin Acetaminophen (Tylenol) 650 mg Q4H PRN ORAL Mild Pain/Temp > 100.5 01/22/17 11:30 02/21/17 11:29 01/23/17 01:16 Albuterol/ Ipratropium (DuoNeb 0.5-3(2.5)mg/3ml) 3 ml Q4HRT HHN 01/22/17 12:00 01/27/17 11:59 01/24/17 15:01 Amlodipine Besylate (Norvasc) 5 mg DAILY ORAL 01/22/17 11:00 02/21/17 10:59 01/25/17 09:17 Ascorbic Acid (Vitamin C) 250 mg DAILY ORAL 01/23/17 09:00 02/22/17 08:59 01/25/17 09:16 Atorvastatin Calcium (Lipitor) 40 mg BEDTIME ORAL 01/22/17 21:00 02/21/17 20:59 01/24/17 20:26 Bisacodyl (Dulcolax) 10 mg DAILYPRN PRN RECTAL Constipation 01/22/17 11:00 02/21/17 10:59 Carvedilol (Coreg) 3.125 mg EVERY 12 HOURS ORAL 01/22/17 12:00 02/21/17 11:59 01/25/17 09:16 Ceftriaxone Sodium 1 gm/ Dextrose 55 ml @ 110 mls/hr Q24H IVPB 01/22/17 00:15 01/29/17 00:14 01/25/17 00:50 Dextrose (Dextrose 50%) STAT PRN IV Hypoglycemia 01/22/17 20:30 02/21/17 20:29 Docusate Sodium (Colace) 100 mg DAILY ORAL 01/23/17 09:00 02/22/17 08:59 01/25/17 09:16 Heparin Sodium (Porcine) (Heparin 5000 units/ml) 5,000 units EVERY 12 HOURS SUBQ 01/22/17 09:00 02/21/17 08:59 01/25/17 09:18 Insulin Aspart (NovoLOG) BEFORE MEALS AND HS SUBQ 01/22/17 21:00 02/21/17 20:59 01/25/17 11:50 Lactobacillus Acidophilus (Culturelle) 1 tab THREE TIMES A DAY ORAL 01/22/17 13:00 02/21/17 12:59 01/25/17 09:15 Lactulose (Cephulac) 20 gm BID ORAL 01/22/17 18:00 02/21/17 17:59 01/25/17 09:16 Lorazepam (Ativan) 0.5 mg Q6H PRN ORAL For Anxiety 01/22/17 11:00 01/29/17 10:59 Magnesium Hydroxide (Mom) 30 ml DAILYPRN PRN ORAL Constipation 01/22/17 11:00 02/21/17 10:59 Magnesium Oxide (Mag-Ox 400mg) 400 mg BID ORAL 01/22/17 18:00 02/21/17 17:59 01/25/17 09:15 Metformin HCl (Glucophage) 500 mg TWICE A DAY ORAL 01/22/17 18:00 02/21/17 17:59 01/25/17 09:14 Multivitamins (Multivitamins) 1 tab DAILY ORAL 01/23/17 09:00 02/22/17 08:59 01/25/17 09:16 Promethazine HCl (Phenergan Plain) 6.25 mg TIDPRN PRN ORAL cough 01/22/17 08:00 02/21/17 07:59 01/25/17 00:53 Sennosides (Senokot) 17.2 mg QHS ORAL 01/22/17 21:00 02/21/17 20:59 01/22/17 21:36 Sitagliptin Phosphate (Januvia) 50 mg DAILY ORAL 01/23/17 09:00 02/22/17 08:59 01/25/17 09:16 Tamsulosin HCl (Flomax) 0.4 mg BEDTIME ORAL 01/22/17 21:00 02/21/17 20:59 01/24/17 20:25 Temazepam (Restoril) 15 mg HSPRN PRN ORAL Insomnia 01/22/17 11:00 01/29/17 10:59 Vancomycin HCl (Vanco rx to dose) 1 ea DAILY PRN MISC Per rx protocol 01/23/17 10:45 02/22/17 10:44 Vancomycin HCl 1 gm/Dextrose 275 ml @ 183.708 mls/hr Q12H IVPB 01/23/17 11:00 01/28/17 10:59 01/25/17 11:49 Vitamin D (Vitamin D) 1,000 intlu DAILY ORAL 01/23/17 09:00 02/22/17 08:59 01/25/17 09:16 Araceli Mays M.D. Jan 25, 2017 12:42
[2017-01-25 13:35] LABS: BASOPHILS % (AUTO) 0.9 % (0.0-2.0); EOSINOPHILS % (AUTO) 3.1 % (0.0-3.0); MEAN CORPUSCULAR HEMOGLOBIN 27.7 PG (27.0-31.0); MEAN CORPUSCULAR VOLUME 87 FL (80-99); MEAN PLATELET VOLUME 5.4 FL (6.5-10.1); NEUTROPHILS % (AUTO) 52.1 % (45.0-75.0); PLATELET COUNT 419 K/UL (150-450); RED BLOOD COUNT 3.84 M/UL (4.70-6.10); RED CELL DISTRIBUTION WIDTH 13.1 % (11.6-14.8); WHITE BLOOD COUNT 7.1 K/UL (4.8-10.8)
[2017-01-25 14:03] LABS: ANION GAP 7 (5-15); CALCIUM 8.4 MG/DL (8.5-10.1); CARBON DIOXIDE 30 MMOL/L (21-32); CHLORIDE 99 MMOL/L (98-107); CREATININE 0.8 MG/DL (0.55-1.30); GLOMERULAR FILTRATION RATE > 60 mL/min (>60); POTASSIUM 3.4 MMOL/L (3.5-5.1); SODIUM 136 MMOL/L (136-145)
--- NOTE | 2017-01-25 17:44 | Wound Care Consultation ---
Wound Assessment Wound Assessment #1: Wound Number: 1 Wound Present on Admission: Yes New Wound: No Status Change of Wound: No Wound Location Body Site Modif: mid Wound Location Body Site: sacral Wound Type: pressure ulcer Mercy Test: Does not Mercy Wound Thickness: Full Thickness Percent of Wound Novice/Red: 100 Wound Drainage Amount: None Wound Drainage Odor: None/Absent Tissue Surrounding Wound: Erythemic Wound General Appearance: Reddened Wound Assessment #2: Wound Number: 2 Wound Present on Admission: Yes New Wound: No Status Change of Wound: No Wound Location Body Site Modif: left Wound Location Body Site: buttocks Wound Type: pressure ulcer Mercy Test: Does not Mercy Pressure Ulcer Stage: II Wound Thickness: Partial Thickness Wound Length: 2.5 Wound Width: 2.5 Wound Depth: 0.1 Percent of Wound Novice/Red: 100 Wound Drainage Description: Serosanguineous Wound Drainage Amount: Scant Wound Drainage Odor: None/Absent Tissue Surrounding Wound: Denuded Wound General Appearance: Reddened, Draining Wound Assessment #3: Wound Number: 3 Wound Present on Admission: Yes New Wound: No Status Change of Wound: No Wound Location Body Site Modif: right Wound Location Body Site: buttocks Wound Type: pressure ulcer Mercy Test: Does not Mercy Pressure Ulcer Stage: II Wound Thickness: Partial Thickness Wound Length: 2.5 Wound Width: 2.5 Wound Depth: 0.1 Percent of Wound Novice/Red: 100 Wound Drainage Description: Serosanguineous Wound Drainage Amount: Scant Wound Drainage Odor: None/Absent Tissue Surrounding Wound: Denuded Wound General Appearance: Reddened, Draining Wound Assessment #4: Wound Number: 4 Wound Present on Admission: Yes New Wound: No Status Change of Wound: No Wound Location Body Site Modif: right Wound Location Body Site: heel Mercy Test: Does not Mercy Pressure Ulcer Stage: IV Wound Thickness: Full Thickness Wound Length: 2.5 Wound Width: 2.5 Wound Depth: 0.2 Percent of Wound Novice/Red: 100 Wound Drainage Description: Serosanguineous Wound Drainage Amount: Scant Wound Drainage Odor: None/Absent Tissue Surrounding Wound: scar tissue Wound General Appearance: Reddened, Draining Wound Assessment #5: Wound Number: 5 Wound Present on Admission: Yes New Wound: No Status Change of Wound: No Wound Location Body Site Modif: mid Wound Location Body Site: back Wound Type: pressure ulcer Mercy Test: Does not Mercy Pressure Ulcer Stage: II Wound Thickness: Partial Thickness Wound Length: 0.5 Wound Width: 0.5 Wound Depth: 0.1 Percent of Wound Novice/Red: 100 Wound Drainage Description: Serosanguineous Wound Drainage Amount: Scant Wound Drainage Odor: None/Absent Tissue Surrounding Wound: scar tissue Wound General Appearance: Reddened, Draining Wound Comment #1 Sacral stage I pressure ulcer. Surrounding skin indurated scar tissue #2 Right heel healing stage IV pressure ulcer #3 Left buttock stage II pressure ulcer with indurated full thickness scar tissue #4 Right buttock stage II pressure ulcer with indurated full thickness scar tissue #5 Mid back open wound with full thickness scar tissue Recommendation -Local wound care per protocol -Optimize nutrition -Low air loss mattress -Offload both heels -Heel protector on both heels -Turn and reposition -Keep clean and dry -Assess and f/u accordingly for any changes MANAV MATA RN Jan 25, 2017 17:44
--- NOTE | 2017-01-25 18:24 | Pulmonology Progress Note ---
Assessment/Plan Problems: (1) Sepsis (2) Fever (3) History of CVA (cerebrovascular accident) (4) Limited mobility in bed Assessment/Plan improving respiratory treatment iv abx check cultures chest pt antitussives dvt prophylaxis d/w brother r at the bed site Subjective ROS Limited/Unobtainable: No Constitutional: Reports: no symptoms HEENT: Repors: no symptoms Respiratory: Reports: no symptoms Allergies: Coded Allergies: No Known Allergies (Unverified , 01/21/17) Objective Last 24 Hour Vital Signs Date Time Temp Pulse Resp B/P (MAP) Pulse Ox O2 Delivery O2 Flow Rate FiO2 01/25/17 16:15 97.7 89 21 132/76 97 Room Air 01/25/17 15:40 90 16 97 Room Air 21 01/25/17 15:40 Room Air 21 01/25/17 11:40 Room Air 21 01/25/17 11:35 90 16 97 Room Air 21 01/25/17 09:17 93 129/59 01/25/17 09:16 93 129/59 01/25/17 08:00 98.1 93 20 129/59 96 Room Air 01/25/17 07:12 92 16 97 Room Air 21 01/25/17 07:12 Room Air 21 01/25/17 07:12 92 18 Room Air 21 01/25/17 04:00 98.4 88 20 126/86 95 Room Air 01/25/17 03:35 Room Air 21 01/25/17 03:34 Room Air 21 01/25/17 00:00 98.2 85 21 133/86 94 Room Air 01/24/17 23:21 Room Air 21 01/24/17 23:20 Room Air 21 01/24/17 20:25 90 137/81 01/24/17 20:00 98.2 91 20 139/88 95 Room Air 01/24/17 19:00 Room Air 21 01/24/17 19:00 90 18 Room Air 21 01/24/17 19:00 91 16 95 Room Air 21 Intake and Output 01/25/17 01/26/17 19:00 07:00 Intake Total 240 ml Balance 240 ml Intake Oral 240 ml # Voids 4 # Bowel Movements 3 Objective General Appearance: WD/WN HEENT: normocephalic, atraumatic Respiratory/Chest: chest wall non-tender, lungs clear Cardiovascular: normal peripheral pulses, normal rate Abdomen: normal bowel sounds, soft, non tender Genitourinary: normal external genitalia Extremities: no clubbing Skin: no rash, no ulcers Laboratory Tests 01/24/17 22:00: Vancomycin Level Trough 15.1H 01/25/17 13:20: White Blood Count 7.1, Red Blood Count 3.84L, Hemoglobin 10.6L, Hematocrit 33.3L , Mean Corpuscular Volume 87, Mean Corpuscular Hemoglobin 27.7, Mean Corpuscular Hemoglobin Concent 32.0, Red Cell Distribution Width 13.1, Platelet Count 419, Mean Platelet Volume 5.4L, Neutrophils (%) (Auto) 52.1, Lymphocytes ( %) (Auto) 34.0, Monocytes (%) (Auto) 10.0, Eosinophils (%) (Auto) 3.1H, Basophils (%) (Auto) 0.9, Sodium Level 136, Potassium Level 3.4L, Chloride Level 99, Carbon Dioxide Level 30, Anion Gap 7, Blood Urea Nitrogen 11, Creatinine 0.8, Estimat Glomerular Filtration Rate > 60, Glucose Level 174H, Calcium Level 8.4L Current Medications Medications (Trade) Dose Ordered Sig/Clint Route PRN Reason Start Time Stop Time Status Last Admin Dose Admin Acetaminophen (Tylenol) 650 mg Q4H PRN ORAL Mild Pain/Temp > 100.5 01/22/17 11:30 02/21/17 11:29 01/23/17 01:16 Albuterol/ Ipratropium (DuoNeb 0.5-3(2.5)mg/3ml) 3 ml Q4HRT HHN 01/22/17 12:00 01/27/17 11:59 01/24/17 15:01 Amlodipine Besylate (Norvasc) 5 mg DAILY ORAL 01/22/17 11:00 02/21/17 10:59 01/25/17 09:17 Ascorbic Acid (Vitamin C) 250 mg DAILY ORAL 01/23/17 09:00 02/22/17 08:59 01/25/17 09:16 Atorvastatin Calcium (Lipitor) 40 mg BEDTIME ORAL 01/22/17 21:00 02/21/17 20:59 01/24/17 20:26 Bisacodyl (Dulcolax) 10 mg DAILYPRN PRN RECTAL Constipation 10/6/17 11:00 02/21/17 10:59 Carvedilol (Coreg) 3.125 mg EVERY 12 HOURS ORAL 01/22/17 12:00 02/21/17 11:59 01/25/17 09:16 Ceftriaxone Sodium 1 gm/ Dextrose 55 ml @ 110 mls/hr Q24H IVPB 01/22/17 00:15 01/29/17 00:14 01/25/17 00:50 Dextrose (Dextrose 50%) STAT PRN IV Hypoglycemia 01/22/17 20:30 02/21/17 20:29 Docusate Sodium (Colace) 100 mg DAILY ORAL 01/23/17 09:00 02/22/17 08:59 01/25/17 09:16 Heparin Sodium (Porcine) (Heparin 5000 units/ml) 5,000 units EVERY 12 HOURS SUBQ 01/22/17 09:00 02/21/17 08:59 01/25/17 09:18 Insulin Aspart (NovoLOG) BEFORE MEALS AND HS SUBQ 01/22/17 21:00 02/21/17 20:59 01/25/17 17:53 Lactobacillus Acidophilus (Culturelle) 1 tab THREE TIMES A DAY ORAL 01/22/17 13:00 02/21/17 12:59 01/25/17 17:52 Lactulose (Cephulac) 20 gm BID ORAL 01/22/17 18:00 02/21/17 17:59 01/25/17 09:16 Lorazepam (Ativan) 0.5 mg Q6H PRN ORAL For Anxiety 01/22/17 11:00 01/29/17 10:59 Magnesium Hydroxide (Mom) 30 ml DAILYPRN PRN ORAL Constipation 01/22/17 11:00 02/21/17 10:59 Magnesium Oxide (Mag-Ox 400mg) 400 mg BID ORAL 01/22/17 18:00 02/21/17 17:59 01/25/17 17:52 Metformin HCl (Glucophage) 500 mg TWICE A DAY ORAL 01/22/17 18:00 02/21/17 17:59 01/25/17 17:52 Multivitamins (Multivitamins) 1 tab DAILY ORAL 01/23/17 09:00 02/22/17 08:59 01/25/17 09:16 Promethazine HCl (Phenergan Plain) 6.25 mg TIDPRN PRN ORAL cough 01/22/17 08:00 02/21/17 07:59 01/25/17 00:53 Sennosides (Senokot) 17.2 mg QHS ORAL 01/22/17 21:00 02/21/17 20:59 01/22/17 21:36 Sitagliptin Phosphate (Januvia) 50 mg DAILY ORAL 01/23/17 09:00 02/22/17 08:59 01/25/17 09:16 Tamsulosin HCl (Flomax) 0.4 mg BEDTIME ORAL 01/22/17 21:00 02/21/17 20:59 01/24/17 20:25 Temazepam (Restoril) 15 mg HSPRN PRN ORAL Insomnia 01/22/17 11:00 01/29/17 10:59 Vancomycin HCl (Vanco rx to dose) 1 ea DAILY PRN MISC Per rx protocol 01/23/17 10:45 02/22/17 10:44 Vancomycin HCl 1 gm/Dextrose 275 ml @ 183.708 mls/hr Q12H IVPB 01/23/17 11:00 01/28/17 10:59 01/25/17 11:49 Vitamin D (Vitamin D) 1,000 intlu DAILY ORAL 01/23/17 09:00 02/22/17 08:59 01/25/17 09:16 JM ALLISON Jan 25, 2017 18:24
[2017-01-25] MEDS ORDERED: Tubing IV Secondary IV ONE (18:58)
[2017-01-25] MEDS: Sennosides 8.6mg ORAL SCH (21:40)
[2017-01-25] MEDS: Tamsulosin 0.4mg cap ORAL SCH (21:41)
[2017-01-26] VITALS: BP 139/69
[2017-01-26] MEDS: Vancomycin 1 GM in D5W 275 ML IVPB SCH ×2 (00:03→10:26)
[2017-01-26] MEDS: Promethazine Plain 6.25mg/5ml ORAL PRN ×2 (02:14→11:50)
[2017-01-26] MEDS: Albuterol/Ipratropium 3ml neb HHN SCH ×4 (03:00→15:00)
[2017-01-26] MEDS: NovoLOG Insulin Flexpen SUBQ SCH ×3 (05:46→16:30)
[2017-01-26 07:55] VITALS: BP 119/72
[2017-01-26] MEDS: Ascorbic Acid 500mg tab ORAL SCH (08:13)
[2017-01-26] MEDS: Vitamin D 1000 IU Tab ORAL SCH (08:13)
[2017-01-26] MEDS: metFORMIN 500mg tab ORAL SCH ×2 (08:13→17:27)
[2017-01-26] MEDS: sitaGLIPtin 50mg tab ORAL SCH (08:14)
[2017-01-26] MEDS: Magnesium Oxide 400mg tab ORAL SCH ×2 (08:14→17:30)
[2017-01-26] MEDS: Lactulose 20gm/30ml UDC ORAL SCH ×2 (08:14→17:27)
[2017-01-26] MEDS: Docusate 100mg cap ORAL SCH (08:14)
[2017-01-26] MEDS: Lactobacillus-GG tablet ORAL SCH ×3 (08:15→17:27)
[2017-01-26] MEDS: Heparin 5000 units/ml inj SUBQ SCH (08:24)
--- NOTE | 2017-01-26 12:00 | Progress Note ---
DATE: 01/25/2017 SUBJECTIVE: The patient is awake, alert, afebrile, hemodynamically stable with persistent, frequent, and inefficient cough. PHYSICAL EXAMINATION: VITAL SIGNS: Blood pressure 132/78. His pulse 92, respirations 18, and temperature 97.7. HEENT: Eyes were normal. ENT, mucous membranes were moist and intact. NECK: Supple with no JVD without lymph nodes. LUNGS: Clear in upper lobe. There are few rhonchi in both bases posteriorly. HEART: Normal sounds with regular beats. There is no S3, S4, or pericardial rub. ABDOMEN: Soft and nontender with normal bowel sounds. EXTREMITIES: Warm without cyanosis, clubbing, or edema. LABORATORY DATA: Hemoglobin 7.1, hematocrit was 33.3 with MCV of 87, WBC of 7.1, and platelets of 419,000. His BUN and creatinine is 11 and 0.8 respectively. His sodium is 136, potassium 3.4, chloride 99, and CO2 is 30. DIAGNOSTIC DATA: . His chest x-ray shows normal cardiomediastinal silhouette. Lungs are clear without infiltrate. . IMPRESSION AND PLAN: The patient has no fever, no leukocytosis, and clear lungs, but remained symptomatic in regard to the persistent cough and lethargy. We will continue the antibiotics for one more day. Repeat laboratory tests will be done in the a.m. Possible discharge and would be assessed during the day. Epi Nicholas M.D. DR: KATERIN JOB#: [id number] CC:
[2017-01-26 12:01] VITALS: BP 153/83
[2017-01-26 16:06] VITALS: BP 136/77
[2017-01-26] MEDS ORDERED: Tubing IV Secondary IV ONE (18:27)
--- NOTE | 2017-01-26 18:32 | Pulmonology Progress Note ---
Assessment/Plan Problems: (1) Sepsis (2) Fever (3) History of CVA (cerebrovascular accident) (4) Limited mobility in bed Assessment/Plan improving respiratory treatment check cultures chest pt antitussives dvt prophylaxis d/w brother r at the bed site ok to dc to alf Subjective ROS Limited/Unobtainable: No Constitutional: Reports: no symptoms HEENT: Repors: no symptoms Respiratory: Reports: no symptoms Allergies: Coded Allergies: No Known Allergies (Unverified , 01/21/17) Objective Last 24 Hour Vital Signs Date Time Temp Pulse Resp B/P (MAP) Pulse Ox O2 Delivery O2 Flow Rate FiO2 01/26/17 16:06 97.9 88 18 136/77 94 Room Air 01/26/17 15:30 Room Air 01/26/17 15:30 Room Air 01/26/17 12:01 97.9 88 18 153/83 96 Room Air 01/26/17 11:54 Room Air 01/26/17 11:53 Room Air 01/26/17 08:14 91 119/72 01/26/17 08:14 91 119/72 01/26/17 07:55 97.5 91 18 119/72 97 Room Air 01/26/17 07:45 Room Air 01/26/17 07:45 Room Air 01/26/17 07:45 89 18 Room Air 21 01/26/17 03:25 89 16 98 Room Air 21 01/26/17 03:25 Room Air 21 01/26/17 00:00 97.7 88 20 139/69 97 Room Air 01/25/17 23:00 85 16 98 Room Air 21 01/25/17 23:00 Room Air 21 01/25/17 21:41 92 132/76 01/25/17 20:39 Room Air 21 01/25/17 20:38 92 16 98 Room Air 21 01/25/17 20:05 2.0 21 01/25/17 20:00 97.7 90 20 128/70 96 Room Air 01/25/17 19:00 98 18 Room Air 21 Intake and Output 01/26/17 01/27/17 19:00 07:00 Intake Total 755.000 ml Balance 755.000 ml Intake Oral 480 ml IV Total 275.000 ml # Voids 2 # Bowel Movements 3 Objective General Appearance: WD/WN HEENT: normocephalic, atraumatic Respiratory/Chest: chest wall non-tender, lungs clear Cardiovascular: normal peripheral pulses, normal rate Abdomen: normal bowel sounds, soft, non tender Genitourinary: normal external genitalia Extremities: no clubbing Skin: no rash, no ulcers JM ALLISON Jan 26, 2017 18:32
--- NOTE | 2017-01-28 13:46 | Discharge Summary ---
Discharge Summary Hospital Course Date of Admission Jan 21, 2017 at 20:02 Date of Discharge Jan 26, 2017 at 18:28 Admitting Diagnosis pneumonia/fever HPI Pranay Hunter is a 71 year old male who was admitted on Jan 21, 2017 at 20:02 for Pneumonia/Fever Hospital Course [id number] Discharge Discharge Disposition Patient was discharged to snf Discharge Diagnoses: Tanja Gonzalez NP Jan 28, 2017 13:46
--- NOTE | 2017-01-28 23:26 | Cardiology Report ---
APPROVED REPORT EKG Measurement Heart [id number] Sinus tachycardia Inferior infarct, age undetermined Anterior infarct, age undetermined T wave abnormality, consider lateral ischemia Abnormal ECG
--- NOTE | 2017-01-29 02:02 | Discharge Summary 2 SIG ---
DATE OF ADMISSION: 01/21/2017 DATE OF DISCHARGE: 01/26/2017 CONSULTANTS: 1. Hebert Jean M.D. 2. Araceli Mays M.D. BRIEF HOSPITAL COURSE: The patient is a 71-year-old male, who is a resident of an extended care facility where he has been in stable condition over the last several weeks. He is known to have several chronic medical syndromes and has been stable on his current medications. On the day of admission, he developed fever, cough, tachycardia, and tachypnea. He appeared to be toxic and was transferred by paramedics to [facility] ER. On evaluation at ED, the patient showed leukocytosis. Troponin was negative. Chest x-ray done showed pneumonia. The patient was started on IV fluids. He was pancultured and was given IV antibiotic. EKG done was in normal sinus rhythm with no acute ischemic changes. He was febrile in the emergency room, temperature was 102 degrees. He was admitted to medical floor for evaluation of fever and pneumonia. He was followed by a shuttle veneering supervisor and Infectious Disease specialist and was given vancomycin and Rocephin. He was placed on respiratory treatments and was given chest physiotherapy. Initial blood culture showed growth of coagulase-negative Staph, most likely contaminant. Sputum culture with normal connor. Urine culture showed growth of Proteus mirabilis. The patient was given IV ceftriaxone. Repeat blood culture did not isolate any growth. He came in with right heel stage IV pressure ulcer and a sacral stage I pressure ulcer. He was given wound care. Fever resolved. Leukocytosis resolved. The patient was cleared for discharge back to [facility]. FINAL DIAGNOSES: 1. Sepsis. 2. Fever, likely secondary to urinary tract infection. 3. Pressure heel ulcer with prior history of osteomyelitis, present on admission. 4. Diabetes mellitus type 2. 5. Cerebrovascular accident with dysphasia. 6. Limited mobility. DISCHARGE DISPOSITION: The patient was discharged to [facility]. DISCHARGE MEDICATIONS: Refer to medication list. Epi Nicholas M.D. I have been assigned to dictate discharge summary on this account and I was not involved in the patient's management. Tanja Gonzalez N.P. DR: YANY JOB#: [id number] CC: ELIZ
== END 2017-01-26 18:28 | DRG 871 ==
LOC: EDBD 18:17 → EMR 19:53 → 4E 20:02 → EDBEDREQ 21:17 → 4W 01-26 08:02
DX: A41.9 Sepsis, unspecified organism (principal); L89.614 Pressure ulcer of right heel, stage 4; L89.151 Pressure ulcer of sacral region, stage 1; J18.9 Pneumonia, unspecified organism; N39.0 Urinary tract infection, site not specified; E11.9 Type 2 diabetes mellitus without complications; I69.391 Dysphagia following cerebral infarction; B96.4 Proteus (mirabilis) (morganii) as the cause of diseases classified elsewhere; R13.10 Dysphagia, unspecified; F31.9 Bipolar disorder, unspecified; F41.9 Anxiety disorder, unspecified; Z79.84 Long term (current) use of oral hypoglycemic drugs; Z87.891 Personal history of nicotine dependence
CPT/HCPCS: 36415; 71010; 80048; 80053; 80202; 81003; 82550; 82553; 82962; 83880; 84484; 85025; 87040; 87070; 87086; 87181; 87205; 93005; 94640; 94664; 99285; J1815; J7620

== ENCOUNTER 2017-02-07 17:00 | Inpatient (IN) | payer MEDICARE, MEDICAID ==
[~2017-02-07] VITALS: Ht 185.4 cm; Wt 80.7 kg
[~2017-02-07 17:00] MED LIST: ACETAMINOPHEN325 M1 ORAL; ACIDOPHILUS1 EAC6 PO; ALUM-MAG HYDRO360 ML PO; ATIVAN0.5 MG ORAL; COLACE100 MG ORAL; COREG3.125 MG ORAL; DULCOLAX10 MG RC; DUONEB 0.5-3(2.53 ML HHN; LACTULOSE20 GM/301 ORAL; LIPITOR40 MG ORAL; LUBRICANT EYE15 M1 OP; MAG-OXIDE400 M1 PO; METFORMIN HCL500 M1 ORAL; MILK OF MA400 MG/51 ORAL; MULTIVITAMINS1 EAC2 ORAL; NORVASC5 MG ORAL; RESTORIL15 MG ORAL; SENNA8.6 M2 PO; TAMSULOSIN HCL0.4 MG ORAL; VITAMIN C250 MG ORAL; VITAMIN D1000 UNI1 ORAL
[2017-02-07 17:10] VITALS: BP 114/81
[2017-02-07] MEDS ORDERED: PHENERGAN SUPP25 MG RECTAL (17:15)
[2017-02-07] MEDS ORDERED: NOVOLOG100 UNIT/3 SUBQ (17:15)
[2017-02-07] MEDS ORDERED: JANUVIA25 MG ORAL (17:15)
[2017-02-07] MEDS ORDERED: HEPARIN SO5000 UNIT2 SUBQ (17:15)
[2017-02-07 17:23] LABS: ABG ALLEN TEST POSITIVE; ABG BASE EXCESS 3.6; ABG PCO2 39.7 mmHg (35.0-45.0)
--- NOTE | 2017-02-07 17:38 | Emergency Room Report ---
History of Present Illness General Chief Complaint: Generalized Weakness Source: Family Member, EMS Present Illness HPI Patient presents with family member from nursing facility Reports of increased cough and congestion patient was here 2 weeks ago with some similar complaints the family now states that the patient's symptoms had worsened There is increased phlegm production patient himself has previous large CVA is nonverbal however he does understand and is able to hear appropriately There was no reports of fevers unknown regarding vomiting or diarrhea Allergies: Coded Allergies: No Known Allergies (Unverified , 01/21/17) Patient History Limited by: medical condition Past Medical History: see triage record Pertinent Family History: unable to obtain Reviewed Nursing Documentation: PMH: Agreed, PSxH: Agreed Nursing Documentation-PMH Past Medical History: No History, Except For Hx Cardiac Problems: Yes - cva Hx Hypertension: Yes Hx COPD: Yes Hx Diabetes: Yes Hx Cancer: No Hx Gastrointestinal Problems: Yes Hx Neurological Problems: Yes Hx Cerebrovascular Accident: Yes Hx Weakness: Yes Hx Fatigue: Yes Review of Systems All Other Systems: limited - Other than the ones mentioned in the history of present illness all others are reviewed however they do stay limited due to the patient's mental status Physical Exam Vital Signs Date Time Temp Pulse Resp B/P (MAP) Pulse Ox O2 Delivery O2 Flow Rate FiO2 02/07/17 16:55 98.4 96 26 126/77 96 Nasal Cannula 2.0 Sp02 EP Interpretation: reviewed, normal General Appearance: mild distress - Appear short of breath and coughing Head: normocephalic, atraumatic Eyes: bilateral eye PERRL ENT: dry mucus membranes Neck: supple Respiratory: crackles - diffusely Cardiovascular #1: regular rate, rhythm, no edema Gastrointestinal: non tender, soft Genitourinary: no CVA tenderness Musculoskeletal: other - Patient has large previous CVA significant deficits Neurologic: responsive - To verbal stimuli however patient not able to speak, not able to follow commands Skin: other - Ulcers and heel breakdown Lymphatic: no adenopathy Medical Decision Making Diagnostic Impression: Primary Impression: Dyspnea Additional Impression: Elevated troponin I level ER Course Patient is a fairly complex patient with multiple differential to consideration including but not limited to cardiac cardiopulmonary and vascular emergencies Patient's blood work reveals elevated troponin Lactic acid was also mildly elevated Patient does not meet criteria for severe sepsis x-ray imaging compares similarly to previous patient was provided further hydration At this time admitted for further care Labs Test 02/07/17 17:10 02/07/17 17:15 Arterial Blood pH 7.460 (7.350-7.450) Arterial Blood Partial Pressure CO2 39.7 mmHg (35.0-45.0) Arterial Blood Partial Pressure O2 63.3 mmHg (75.0-100.0) Arterial Blood HCO3 27.6 mmol/L (22.0-26.0) Arterial Blood Oxygen Saturation 92.0 % (92.0-98.0) Arterial Blood Base Excess 3.6 Sohail Test Positive White Blood Count 9.0 K/UL (4.8-10.8) Red Blood Count 4.06 M/UL (4.70-6.10) Hemoglobin 11.3 G/DL (14.2-18.0) Hematocrit 35.5 % (42.0-52.0) Mean Corpuscular Volume 88 FL (80-99) Mean Corpuscular Hemoglobin 27.9 PG (27.0-31.0) Mean Corpuscular Hemoglobin Concent 31.9 G/DL (32.0-36.0) Red Cell Distribution Width 13.4 % (11.6-14.8) Platelet Count 414 K/UL (150-450) Mean Platelet Volume 5.5 FL (6.5-10.1) Neutrophils (%) (Auto) 61.8 % (45.0-75.0) Lymphocytes (%) (Auto) 24.2 % (20.0-45.0) Monocytes (%) (Auto) 11.2 % (1.0-10.0) Eosinophils (%) (Auto) 1.8 % (0.0-3.0) Basophils (%) (Auto) 1.1 % (0.0-2.0) Sodium Level 134 MMOL/L (136-145) Potassium Level 4.1 MMOL/L (3.5-5.1) Chloride Level 97 MMOL/L (98-107) Carbon Dioxide Level 31 MMOL/L (21-32) Anion Gap 6 mmol/L (5-15) Blood Urea Nitrogen 20 mg/dL (7-18) Creatinine 1.1 MG/DL (0.55-1.30) Estimat Glomerular Filtration Rate > 60 mL/min (>60) Glucose Level 309 MG/DL (74-106) Lactic Acid Level 2.30 mmol/L (0.66-2.22) Calcium Level 8.9 MG/DL (8.5-10.1) Total Bilirubin 0.4 MG/DL (0.2-1.0) Aspartate Amino Transf (AST/SGOT) 13 U/L (15-37) Alanine Aminotransferase (ALT/SGPT) 19 U/L (12-78) Alkaline Phosphatase 130 U/L (46-116) Total Creatine Kinase 81 U/L (26-308) Creatine Kinase MB 2.2 NG/ML (0.0-3.6) Creatine Kinase MB Relative Index 2.7 Troponin I 0.076 ng/mL (0.000-0.056) Pro-B-Type Natriuretic Peptide 525 pg/mL (0-125) Total Protein 7.2 G/DL (6.4-8.2) Albumin 2.9 G/DL (3.4-5.0) Globulin 4.3 g/dL Albumin/Globulin Ratio 0.7 (1.0-2.7) Lipase 108 U/L (73-393) Rhythm Strip Diag. Results EP Interpretation: yes Rate: 78 Rhythm: NSR, no PVC's, no ectopy Chest X-Ray Diagnostic Results Chest X-Ray Diagnostic Results : Chest X-Ray Ordered: Yes # of Views/Limited/Complete: 1 View Indication: Chest Pain EP Interpretation: Yes Interpretation: no consolidation, no effusion, no pneumothorax, other - Mild bilateral atelectasis, mild congestion Impression: No acute disease Electronically Signed by: Lottie Thomas DO Last Vital Signs Date Time Temp Pulse Resp B/P (MAP) Pulse Ox O2 Delivery O2 Flow Rate FiO2 02/07/17 16:55 98.4 96 26 126/77 96 Nasal Cannula 2.0 Status: improved Disposition: ADMITTED INPATIENT Condition: Serious Referrals: ASAD SADLER (PCP) LOTTIE THOMAS D.O. Feb 07, 2017 17:38
[2017-02-07 17:42] LABS: BASOPHILS % (AUTO) 1.1 % (0.0-2.0); EOSINOPHILS % (AUTO) 1.8 % (0.0-3.0); LYMPHOCYTES % (AUTO) 24.2 % (20.0-45.0); MEAN CORPUSCULAR HEMOGLOBIN 27.9 PG (27.0-31.0); MEAN CORPUSCULAR HGB CONC 31.9 G/DL (32.0-36.0); MEAN CORPUSCULAR VOLUME 88 FL (80-99); MEAN PLATELET VOLUME 5.5 FL (6.5-10.1); MONOCYTES % (AUTO) 11.2 % (1.0-10.0); NEUTROPHILS % (AUTO) 61.8 % (45.0-75.0); PLATELET COUNT 414 K/UL (150-450); RED BLOOD COUNT 4.06 M/UL (4.70-6.10); RED CELL DISTRIBUTION WIDTH 13.4 % (11.6-14.8)
[2017-02-07 18:00] VITALS: BP 146/78
[2017-02-07 18:15] LABS: REFLEX LACTIC ACID YES OR NO YES
[2017-02-07 18:19] LABS: ALANINE AMINOTRANSFERASE 19 U/L (12-78); ALBUMIN/GLOBULIN RATIO 0.7 (1.0-2.7); ANION GAP 6 mmol/L (5-15); ASPARTATE AMINO TRANSFERASE 13 U/L (15-37); CALCIUM 8.9 MG/DL (8.5-10.1); CARBON DIOXIDE 31 MMOL/L (21-32); CHLORIDE 97 MMOL/L (98-107); CKMB 2.2 NG/ML (0.0-3.6); CREATININE 1.1 MG/DL (0.55-1.30); GLOMERULAR FILTRATION RATE > 60 mL/min (>60); LIPASE 108 U/L (73-393); POTASSIUM 4.1 MMOL/L (3.5-5.1); SODIUM 134 MMOL/L (136-145); TOTAL PROTEIN 7.2 G/DL (6.4-8.2)
[2017-02-07] MEDS ORDERED: Tubing IV Cassette IV ONE (18:23)
[2017-02-07] MEDS ORDERED: Promethazine/Codeine 5ml UD ORAL ONE (18:30)
[2017-02-07] MEDS ORDERED: Mylanta II UD 30ml ORAL PRN (18:45)
[2017-02-07] MEDS ORDERED: Promethazine/Codeine 5ml UD ORAL PRN (18:45)
[2017-02-07] MEDS ORDERED: Albuterol/Ipratropium 3ml neb HHN PRN (18:45)
[2017-02-07] MEDS ORDERED: Miralax 17gm pkt ORAL PRN (18:45)
[2017-02-07] MEDS ORDERED: LORazepam 0.5mg tab ORAL PRN (18:45)
[2017-02-07] MEDS ORDERED: Nitroglycerin Subl 0.4mg tab SL PRN (18:45)
[2017-02-07 19:14] VITALS: BP 153/80
[2017-02-07] MEDS ORDERED: Cefepime HCl 1 GM in D5W 55 ML IV SCH (19:30)
[2017-02-07] MEDS ORDERED: Cefepime 1gm vial ONE (19:45)
[2017-02-07 20:13] VITALS: BP 143/73
[2017-02-07] MEDS: Heparin 5000 units/ml inj SUBQ SCH ×2 (21:00→21:16)
[2017-02-07] MEDS: NovoLOG Insulin Flexpen SUBQ SCH (21:00)
[2017-02-07] MEDS: Tamsulosin 0.4mg cap ORAL SCH ×2 (21:00→21:14)
[2017-02-07] MEDS: Vancomycin 750mg/NS 250ml 250 ML IVPB SCH (21:15)
[2017-02-07 23:40] VITALS: BP 145/93
[2017-02-08] VITALS: BP 118/72
[2017-02-08 04:00] VITALS: BP 152/83
[2017-02-08] MEDS ORDERED: Cefepime 1gm vial ONE (05:33)
[2017-02-08] MEDS: NovoLOG Insulin Flexpen SUBQ SCH ×4 (06:30→20:10)
[2017-02-08] MEDS ORDERED: Cefepime HCl 1 GM in D5W 55 ML IV SCH (07:30)
[2017-02-08 08:00] VITALS: BP 148/80
[2017-02-08 08:23] LABS: BASOPHILS % (AUTO) 0.9 % (0.0-2.0); EOSINOPHILS % (AUTO) 2.2 % (0.0-3.0); LYMPHOCYTES % (AUTO) 25.4 % (20.0-45.0); MEAN CORPUSCULAR HEMOGLOBIN 29.2 PG (27.0-31.0); MEAN CORPUSCULAR HGB CONC 33.5 G/DL (32.0-36.0); MEAN CORPUSCULAR VOLUME 87 FL (80-99); MEAN PLATELET VOLUME 5.7 FL (6.5-10.1); MONOCYTES % (AUTO) 13.1 % (1.0-10.0); NEUTROPHILS % (AUTO) 58.4 % (45.0-75.0); PLATELET COUNT 414 K/UL (150-450); RED BLOOD COUNT 3.85 M/UL (4.70-6.10); RED CELL DISTRIBUTION WIDTH 13.2 % (11.6-14.8); WHITE BLOOD COUNT 10.3 K/UL (4.8-10.8)
--- NOTE | 2017-02-08 08:42 | Diagnostic Imaging Report ---
Indication: SOB Technique: One view of the chest Comparison: 01/24/2017 Findings: Lungs and pleural spaces are clear. Heart size is normal. Aorta is tortuous. No significant interim change Impression: Negative
[2017-02-08 08:54] LABS: ANION GAP 6 mmol/L (5-15); CARBON DIOXIDE 30 MMOL/L (21-32); CHLORIDE 101 MMOL/L (98-107); CREATININE 0.8 MG/DL (0.55-1.30); GLOMERULAR FILTRATION RATE > 60 mL/min (>60); PHOSPHORUS 3.1 MG/DL (2.5-4.9); SODIUM 137 MMOL/L (136-145)
[2017-02-08] MEDS: sitaGLIPtin 25mg tab ORAL SCH (09:42)
[2017-02-08] MEDS: Heparin 5000 units/ml inj SUBQ SCH ×2 (09:45→20:11)
[2017-02-08] MEDS: Vancomycin 750mg/NS 250ml 250 ML IVPB SCH (11:02)
--- NOTE | 2017-02-08 11:34 | Wound Care Consultation ---
Wound Assessment Wound Assessment #1: Wound Number: 1 Wound Present on Admission: Yes New Wound: No Status Change of Wound: No Wound Location Body Site Modif: right Wound Location Body Site: heel Wound Type: pressure ulcer - patient has history of open wound to site. Mercy Test: Does not Mercy Pressure Ulcer Stage: Deep Tissue Injury - deep tissue injury Wound Thickness: Full Thickness Wound Length: 8.0 Wound Width: 7.0 Wound Depth: utd Percent of Wound Purple/Maroon: 100 Other Colors Identified: noted callous like hard tissue to middle. yellow Wound Drainage Amount: None Wound Drainage Odor: None/Absent Tissue Surrounding Wound: Intact Wound General Appearance: Reddened - maroon. Wound Assessment #2: Wound Number: 2 Wound Present on Admission: Yes New Wound: No Status Change of Wound: No Wound Location Body Site Modif: mid Wound Location Body Site: other - sacrococcygeal Wound Type: pressure ulcer Mercy Test: Does not Mercy Pressure Ulcer Stage: Deep Tissue Injury - surrounding skin noted with extensive scar tissue Wound Thickness: Full Thickness Wound Length: 11.0 Wound Width: 11.0 Wound Depth: utd Percent of Wound Purple/Maroon: 100 Wound Drainage Amount: None Wound Drainage Odor: None/Absent Tissue Surrounding Wound: Macerated - erythemic Wound General Appearance: Reddened Wound Assessment #3: Wound Number: 3 Wound Present on Admission: Yes New Wound: No Status Change of Wound: No Wound Location Body Site Modif: lower, posterior Wound Location Body Site: back Wound Type: scar - full thickness scar tissue Mercy Test: Does not Mercy Wound Thickness: Full Thickness Wound Length: 8.0 Wound Width: 4.0 Wound Depth: utd Percent of Wound Schoolcraft/Red: 100 Wound Drainage Amount: None Wound Drainage Odor: None/Absent Tissue Surrounding Wound: Intact Wound General Appearance: Reddened - scar tissue Wound Comment #1 Right heel deep tissue injury. #2 Mid Sacrococcygeal deep tissue injury with extensive scar tissue #3 Posterior mid back full thickness scar tissue. Recommendation. -Local wound care as ordered. -Turn and reposition. -Offload affected sites. -Apply low air loss mattress for wound and skin management SPR OR P200. -Optimize nutrition. -Avoid shear and friction. -Keep clean and dry. -Assess and notify MD for any changes of condition to skin. TINY TREVIÑO 23, 2017 11:34
[2017-02-08 12:00] VITALS: BP 139/77
--- NOTE | 2017-02-08 12:18 | Consultation ---
History of Present Illness General Date patient seen: Feb 07, 2017 Chief Complaint: Generalized Weakness Reason for Consultation: dyspnea Present Illness HPI 71 year old male with hx of CVA, bed bound DM, presents with CC of cough and congestion patient was here 2 weeks ago with some similar complaints the family now states that the patient's symptoms had worsened. There is increased phlegm production. Pt is nonverbal however he does understand and is able to hear appropriately. His CXR was negative but troponin came out positive. He is admitted to telemetry for further evaluation. Allergies: Coded Allergies: No Known Allergies (Unverified , 01/21/17) Medication History Scheduled Amlodipine Besylate (Norvasc), 5 MG ORAL DAILY, (Reported) Ascorbic Acid* (Vitamin C*), 250 MG ORAL DAILY, (Reported) Atorvastatin Calcium* (Lipitor*), 40 MG ORAL BEDTIME, (Reported) Carboxymethylcellulose Sodium (Lubricant Eye), 1 DRP OP THREE TIMES A DAY, ( Reported) Carvedilol (Coreg), 3.125 MG ORAL EVERY 12 HOURS, (Reported) Cholecalciferol (Vitamin D3)* (Vitamin D*), 2,000 UNITS ORAL DAILY, (Reported) Docusate Sodium* (Colace*), 100 MG ORAL DAILY, (Reported) Heparin Sod (Porcine) (Heparin Sodium*), 5,000 UNITS SUBQ EVERY 12 HOURS, ( Reported) Ipratropium/Albuterol Sulfate (DuoNeb 0.5-3(2.5)mg/3ml), 3 ML HHN EVERY 4 HOURS, (Reported) Lactobacillus Acidophilus (Acidophilus), 1 EACH PO THREE TIMES A DAY, (Reported) Lactulose (Lactulose*), 15 ML ORAL BID, (Reported) Mag Hydrox/Al Hydrox/Simeth (Alum-Mag Hydroxide-Simeth Liq), 30 ML PO EVERY 4 HOURS, (Reported) Magnesium Hydroxide* (Milk Of Magnesia*), 30 ML ORAL DAILY, (Reported) Magnesium Oxide (Mag-Oxide), 400 MG PO BID, (Reported) Metformin Hcl* (Metformin Hcl*), 500 MG ORAL TWICE A DAY, (Reported) Multivitamins* (Multivitamins*), 1 TAB ORAL DAILY, (Reported) Sennosides (Senna), 2 TAB PO BEDTIME, (Reported) Sitagliptin* (Januvia*), 50 MG ORAL DAILY, (Reported) Tamsulosin Hcl (Tamsulosin Hcl*), 0.4 MG ORAL BEDTIME, (Reported) Scheduled PRN Acetaminophen* (Acetaminophen 325MG Tablet*), 650 MG ORAL Q4H PRN for MILD PAIN, (Reported) Bisacodyl (Dulcolax), 10 MG RC DAILY PRN for Constipation, (Reported) Lorazepam* (Ativan*), 0.5 MG ORAL EVERY 6 HOURS PRN for For Anxiety, (Reported) Promethazine HCl (Promethegan), 6.25 MG RECTAL Q6H PRN for Nausea & Vomiting, ( Reported) Temazepam* (Restoril*), 15 MG ORAL BEDTIME PRN for Insomnia, (Reported) Miscellaneous Medications Insulin Aspart* (Novolog*), 0 SUBQ, (Reported) Patient History Healthcare decision maker N Resuscitation status Full Code Advanced Directive on File No Past Medical/Surgical History Past Medical/Surgical History: (1) Persistent cough (2) Non-ST elevation (NSTEMI) myocardial infarction (3) Dyspnea (4) History of CVA (cerebrovascular accident) (5) Limited mobility in bed Review of Systems All Other Systems: negative except mentioned in HPI Physical Exam General Appearance: WD/WN Lines, tubes and drains: peripheral HEENT: normocephalic, atraumatic Neck: non-tender, normal alignment Respiratory/Chest: chest wall non-tender, lungs clear Breasts: no masses Cardiovascular/Chest: normal peripheral pulses, normal rate Abdomen: normal bowel sounds Genitourinary/Rectal: normal genital exam Extremities: normal range of motion Last 24 Hour Vital Signs Date Time Temp Pulse Resp B/P (MAP) Pulse Ox O2 Delivery O2 Flow Rate FiO2 02/08/17 09:43 90 148/80 02/08/17 09:43 90 148/80 02/08/17 08:00 98.2 90 20 148/80 95 Nasal Cannula 2.0 02/08/17 04:03 92 02/08/17 04:00 98.2 92 27 152/83 Nasal Cannula 2.0 02/08/17 00:11 89 02/08/17 00:00 97.0 91 20 118/72 97 Room Air 02/07/17 23:40 97.9 90 23 145/93 98 Nasal Cannula 2.0 02/07/17 20:13 98.7 96 20 153/80 100 Nasal Cannula 2.0 28 02/07/17 20:13 96 25 143/73 98 Nasal Cannula 2.0 02/07/17 19:47 28 02/07/17 19:47 103 20 100 Nasal Cannula 2.0 28 02/07/17 19:35 91 16 99 Nasal Cannula 2.0 28 02/07/17 19:26 94 22 Nasal Cannula 2.0 02/07/17 19:14 98.7 94 22 153/80 98 Nasal Cannula 2.0 02/07/17 18:00 93 24 146/78 97 Nasal Cannula 2.0 02/07/17 17:10 94 22 114/81 97 Nasal Cannula 2.0 02/07/17 16:55 98.4 96 26 126/77 96 Nasal Cannula 2.0 Laboratory Tests Test 02/07/17 17:10 02/07/17 17:15 02/07/17 19:21 02/08/17 07:25 Arterial Blood pH 7.460 (7.350-7.450) Arterial Blood Partial Pressure CO2 39.7 mmHg (35.0-45.0) Arterial Blood Partial Pressure O2 63.3 mmHg (75.0-100.0) L Arterial Blood HCO3 27.6 mmol/L (22.0-26.0) H Arterial Blood Oxygen Saturation 92.0 % (92.0-98.0) Arterial Blood Base Excess 3.6 Sohail Test Positive White Blood Count 9.0 K/UL (4.8-10.8) 10.3 K/UL (4.8-10.8) Red Blood Count 4.06 M/UL (4.70-6.10) L 3.85 M/UL (4.70-6.10) L Hemoglobin 11.3 G/DL (14.2-18.0) L 11.2 G/DL (14.2-18.0) L Hematocrit 35.5 % (42.0-52.0) L 33.5 % (42.0-52.0) L Mean Corpuscular Volume 88 FL (80-99) 87 FL (80-99) Mean Corpuscular Hemoglobin 27.9 PG (27.0-31.0) 29.2 PG (27.0-31.0) Mean Corpuscular Hemoglobin Concent 31.9 G/DL (32.0-36.0) L 33.5 G/DL (32.0-36.0) Red Cell Distribution Width 13.4 % (11.6-14.8) 13.2 % (11.6-14.8) Platelet Count 414 K/UL (150-450) 414 K/UL (150-450) Mean Platelet Volume 5.5 FL (6.5-10.1) L 5.7 FL (6.5-10.1) L Neutrophils (%) (Auto) 61.8 % (45.0-75.0) 58.4 % (45.0-75.0) Lymphocytes (%) (Auto) 24.2 % (20.0-45.0) 25.4 % (20.0-45.0) Monocytes (%) (Auto) 11.2 % (1.0-10.0) H 13.1 % (1.0-10.0) H Eosinophils (%) (Auto) 1.8 % (0.0-3.0) 2.2 % (0.0-3.0) Basophils (%) (Auto) 1.1 % (0.0-2.0) 0.9 % (0.0-2.0) Sodium Level 134 MMOL/L (136-145) L 137 MMOL/L (136-145) Potassium Level 4.1 MMOL/L (3.5-5.1) 4.0 MMOL/L (3.5-5.1) Chloride Level 97 MMOL/L (98-107) L 101 MMOL/L (98-107) Carbon Dioxide Level 31 MMOL/L (21-32) 30 MMOL/L (21-32) Anion Gap 6 mmol/L (5-15) 6 mmol/L (5-15) Blood Urea Nitrogen 20 mg/dL (7-18) H 13 mg/dL (7-18) Creatinine 1.1 MG/DL (0.55-1.30) 0.8 MG/DL (0.55-1.30) Estimat Glomerular Filtration Rate > 60 mL/min (>60) > 60 mL/min (>60) Glucose Level 309 MG/DL (74-106) H 187 MG/DL (74-106) #H Lactic Acid Level 2.30 mmol/L (0.66-2.22) H 2.10 mmol/L (0.66-2.22) Calcium Level 8.9 MG/DL (8.5-10.1) 9.0 MG/DL (8.5-10.1) Total Bilirubin 0.4 MG/DL (0.2-1.0) Aspartate Amino Transf (AST/SGOT) 13 U/L (15-37) L Alanine Aminotransferase (ALT/SGPT) 19 U/L (12-78) Alkaline Phosphatase 130 U/L (46-116) H Total Creatine Kinase 81 U/L (26-308) Creatine Kinase MB 2.2 NG/ML (0.0-3.6) Creatine Kinase MB Relative Index 2.7 Troponin I 0.076 ng/mL (0.000-0.056) 0.072 ng/mL (0.000-0.056) 0.081 ng/mL (0.000-0.056) Pro-B-Type Natriuretic Peptide 525 pg/mL (0-125) H Total Protein 7.2 G/DL (6.4-8.2) Albumin 2.9 G/DL (3.4-5.0) L 3.0 G/DL (3.4-5.0) L Globulin 4.3 g/dL Albumin/Globulin Ratio 0.7 (1.0-2.7) L Lipase 108 U/L (73-393) Phosphorus Level 3.1 MG/DL (2.5-4.9) Height (Feet): 6 Height (Inches): 1.00 Weight (Pounds): 178 Medications Current Medications Medications (Trade) Dose Ordered Sig/Clint Route PRN Reason Start Time Stop Time Status Last Admin Dose Admin Acetaminophen (Tylenol) 650 mg Q4H PRN ORAL fever 02/07/17 18:45 03/09/17 18:44 Al Hydroxide/Mg Hydroxide (Mylanta II) 30 ml Q6H PRN ORAL dyspepsia 02/07/17 18:45 03/09/17 18:44 Albuterol/ Ipratropium (DuoNeb 0.5-3(2.5)mg/3ml) 3 ml Q4H PRN HHN Shortness of Breath 02/07/17 18:45 02/12/17 18:44 02/07/17 19:35 Amlodipine Besylate (Norvasc) 5 mg DAILY ORAL 02/08/17 09:00 03/10/17 08:59 02/08/17 09:43 Carvedilol (Coreg) 3.125 mg EVERY 12 HOURS ORAL 02/07/17 21:00 03/09/17 20:59 02/08/17 09:43 Cefepime HCl 1 gm/ Dextrose 55 ml @ 110 mls/hr Q12H IV 02/08/17 07:30 02/14/17 19:29 02/08/17 06:51 Dextrose (Dextrose 50%) STAT PRN IV Hypoglycemia 02/07/17 18:45 03/09/17 18:44 Heparin Sodium (Porcine) (Heparin 5000 units/ml) 5,000 units EVERY 12 HOURS SUBQ 02/07/17 21:00 03/09/17 20:59 02/08/17 09:45 Insulin Aspart (NovoLOG) BEFORE MEALS AND HS SUBQ 02/07/17 21:00 03/09/17 20:59 Lorazepam (Ativan) 0.5 mg Q6H PRN ORAL For Anxiety 02/07/17 18:45 02/14/17 18:44 Nitroglycerin (Ntg) 0.4 mg Q5MIN X 3 DOSES PRN SL Prn Chest Pain 02/07/17 18:45 03/09/17 18:44 Ondansetron HCl (Zofran) 4 mg Q6H PRN IVP Nausea & Vomiting 02/07/17 18:45 03/09/17 18:44 Polyethylene Glycol (Miralax) 17 gm DAILYPRN PRN ORAL Constipation 02/07/17 18:45 03/09/17 18:44 Promethazine HCl/ Codeine (Phenergan with Codeine) 5 ml Q4H PRN ORAL For Cough 02/07/17 18:45 03/09/17 18:44 02/07/17 23:30 Sitagliptin Phosphate (Januvia) 50 mg DAILY ORAL 02/08/17 09:00 03/10/17 08:59 02/08/17 09:42 Tamsulosin HCl (Flomax) 0.4 mg BEDTIME ORAL 02/07/17 21:00 03/09/17 20:59 Temazepam (Restoril) 15 mg HSPRN PRN ORAL Insomnia 02/07/17 18:45 02/14/17 18:44 Vancomycin HCl (Vanco rx to dose) 1 ea DAILY PRN MISC Per rx protocol 02/07/17 18:45 03/09/17 18:44 Vancomycin/Sodium Chloride 250 ml @ 166.667 mls/hr Q12HR IVPB 02/07/17 21:00 02/12/17 20:59 02/08/17 11:02 Assessment/Plan Problem List: (1) Bronchitis ICD Codes: J40 - Bronchitis, not specified as acute or chronic SNOMED: 18440661 (2) Non-ST elevation (NSTEMI) myocardial infarction ICD Codes: I21.4 - Non-ST elevation (NSTEMI) myocardial infarction SNOMED: 239594651 (3) Persistent cough ICD Codes: R05 - Cough SNOMED: 802711338 (4) At high risk for aspiration ICD Codes: Z91.89 - Other specified personal risk factors, not elsewhere classified SNOMED: 019812403 (5) History of CVA (cerebrovascular accident) ICD Codes: Z86.73 - Personal history of transient ischemic attack (TIA), and cerebral infarction without residual deficits SNOMED: 372408237 Assessment/Plan NPO IV fluids check sputum Cardio evaluation swallow evaluation f/u troponin levels, might be an error. JM ALLISON Feb 08, 2017 12:18
--- NOTE | 2017-02-08 12:19 | Pulmonology Progress Note ---
Assessment/Plan Problems: (1) Bronchitis (2) Non-ST elevation (NSTEMI) myocardial infarction (3) Persistent cough (4) At high risk for aspiration (5) History of CVA (cerebrovascular accident) Assessment/Plan less cough feels better brother at bed site swallow study pending awaiting cardio consult Subjective ROS Limited/Unobtainable: No Constitutional: Reports: no symptoms HEENT: Repors: no symptoms Respiratory: Reports: no symptoms Cardiovascular: Reports: no symptoms Gastrointestinal/Abdominal: Reports: no symptoms Allergies: Coded Allergies: No Known Allergies (Unverified , 01/21/17) Objective Last 24 Hour Vital Signs Date Time Temp Pulse Resp B/P (MAP) Pulse Ox O2 Delivery O2 Flow Rate FiO2 02/08/17 09:43 90 148/80 02/08/17 09:43 90 148/80 02/08/17 08:00 98.2 90 20 148/80 95 Nasal Cannula 2.0 02/08/17 04:03 92 02/08/17 04:00 98.2 92 27 152/83 Nasal Cannula 2.0 02/08/17 00:11 89 02/08/17 00:00 97.0 91 20 118/72 97 Room Air 02/07/17 23:40 97.9 90 23 145/93 98 Nasal Cannula 2.0 02/07/17 20:13 98.7 96 20 153/80 100 Nasal Cannula 2.0 28 02/07/17 20:13 96 25 143/73 98 Nasal Cannula 2.0 02/07/17 19:47 28 02/07/17 19:47 103 20 100 Nasal Cannula 2.0 02/07/17 19:35 91 16 99 Nasal Cannula 2.0 02/07/17 19:26 94 22 Nasal Cannula 2.0 02/07/17 19:14 98.7 94 22 153/80 98 Nasal Cannula 2.0 02/07/17 18:00 93 24 146/78 97 Nasal Cannula 2.0 02/07/17 17:10 94 22 114/81 97 Nasal Cannula 2.0 02/07/17 16:55 98.4 96 26 126/77 96 Nasal Cannula 2.0 General Appearance: WD/WN HEENT: normocephalic, atraumatic Respiratory/Chest: chest wall non-tender, lungs clear Cardiovascular: normal peripheral pulses, normal rate Abdomen: normal bowel sounds, soft, non tender Genitourinary: normal external genitalia Extremities: no clubbing Skin: no lesions Neurologic/Psychiatric: recreation leader II-XII grossly normal Laboratory Tests 02/07/17 17:10: Arterial Blood pH 7.460H, Arterial Blood Partial Pressure CO2 39.7, Arterial Blood Partial Pressure O2 63.3L, Arterial Blood HCO3 27.6H, Arterial Blood Oxygen Saturation 92.0, Arterial Blood Base Excess 3.6, Sohail Test Positive 02/07/17 17:15: White Blood Count 9.0, Red Blood Count 4.06L, Hemoglobin 11.3L, Hematocrit 35.5L , Mean Corpuscular Volume 88, Mean Corpuscular Hemoglobin 27.9, Mean Corpuscular Hemoglobin Concent 31.9L, Red Cell Distribution Width 13.4, Platelet Count 414, Mean Platelet Volume 5.5L, Neutrophils (%) (Auto) 61.8, Lymphocytes (%) (Auto) 24.2, Monocytes (%) (Auto) 11.2H, Eosinophils (%) (Auto) 1.8, Basophils (%) (Auto) 1.1, Sodium Level 134L, Potassium Level 4.1, Chloride Level 97L, Carbon Dioxide Level 31, Anion Gap 6, Blood Urea Nitrogen 20H, Creatinine 1.1, Estimat Glomerular Filtration Rate > 60, Glucose Level 309H, Lactic Acid Level 2.30H, Calcium Level 8.9, Total Bilirubin 0.4, Aspartate Amino Transf (AST/SGOT) 13L, Alanine Aminotransferase (ALT/SGPT) 19, Alkaline Phosphatase 130H, Total Creatine Kinase 81, Creatine Kinase MB 2.2, Creatine Kinase MB Relative Index 2.7, Troponin I 0.076H, Pro-B-Type Natriuretic Peptide 525H, Total Protein 7.2, Albumin 2.9L, Globulin 4.3, Albumin/Globulin Ratio 0.7L , Lipase 108 02/07/17 19:21: Lactic Acid Level 2.10, Troponin I 0.072H 02/08/17 07:25: White Blood Count 10.3, Red Blood Count 3.85L, Hemoglobin 11.2L, Hematocrit 33.5L, Mean Corpuscular Volume 87, Mean Corpuscular Hemoglobin 29.2, Mean Corpuscular Hemoglobin Concent 33.5, Red Cell Distribution Width 13.2, Platelet Count 414, Mean Platelet Volume 5.7L, Neutrophils (%) (Auto) 58.4, Lymphocytes ( %) (Auto) 25.4, Monocytes (%) (Auto) 13.1H, Eosinophils (%) (Auto) 2.2, Basophils (%) (Auto) 0.9, Sodium Level 137, Potassium Level 4.0, Chloride Level 101, Carbon Dioxide Level 30, Anion Gap 6, Blood Urea Nitrogen 13, Creatinine 0.8, Estimat Glomerular Filtration Rate > 60, Glucose Level 187#H, Calcium Level 9.0, Troponin I 0.081H, Albumin 3.0L, Phosphorus Level 3.1 Current Medications Medications (Trade) Dose Ordered Sig/Clint Route PRN Reason Start Time Stop Time Status Last Admin Dose Admin Acetaminophen (Tylenol) 650 mg Q4H PRN ORAL fever 02/07/17 18:45 03/09/17 18:44 Al Hydroxide/Mg Hydroxide (Mylanta II) 30 ml Q6H PRN ORAL dyspepsia 02/07/17 18:45 03/09/17 18:44 Albuterol/ Ipratropium (DuoNeb 0.5-3(2.5)mg/3ml) 3 ml Q4H PRN HHN Shortness of Breath 02/07/17 18:45 02/12/17 18:44 02/07/17 19:35 Amlodipine Besylate (Norvasc) 5 mg DAILY ORAL 02/08/17 09:00 03/10/17 08:59 02/08/17 09:43 Carvedilol (Coreg) 3.125 mg EVERY 12 HOURS ORAL 02/07/17 21:00 03/09/17 20:59 02/08/17 09:43 Cefepime HCl 1 gm/ Dextrose 55 ml @ 110 mls/hr Q12H IV 02/08/17 07:30 02/14/17 19:29 02/08/17 06:51 Dextrose (Dextrose 50%) STAT PRN IV Hypoglycemia 02/07/17 18:45 03/09/17 18:44 Heparin Sodium (Porcine) (Heparin 5000 units/ml) 5,000 units EVERY 12 HOURS SUBQ 02/07/17 21:00 03/09/17 20:59 02/08/17 09:45 Insulin Aspart (NovoLOG) BEFORE MEALS AND HS SUBQ 02/07/17 21:00 03/09/17 20:59 Lorazepam (Ativan) 0.5 mg Q6H PRN ORAL For Anxiety 02/07/17 18:45 02/14/17 18:44 Nitroglycerin (Ntg) 0.4 mg Q5MIN X 3 DOSES PRN SL Prn Chest Pain 02/07/17 18:45 03/09/17 18:44 Ondansetron HCl (Zofran) 4 mg Q6H PRN IVP Nausea & Vomiting 02/07/17 18:45 03/09/17 18:44 Polyethylene Glycol (Miralax) 17 gm DAILYPRN PRN ORAL Constipation 02/07/17 18:45 03/09/17 18:44 Promethazine HCl/ Codeine (Phenergan with Codeine) 5 ml Q4H PRN ORAL For Cough 02/07/17 18:45 03/09/17 18:44 02/07/17 23:30 Sitagliptin Phosphate (Januvia) 50 mg DAILY ORAL 02/08/17 09:00 03/10/17 08:59 02/08/17 09:42 Tamsulosin HCl (Flomax) 0.4 mg BEDTIME ORAL 02/07/17 21:00 03/09/17 20:59 Temazepam (Restoril) 15 mg HSPRN PRN ORAL Insomnia 02/07/17 18:45 02/14/17 18:44 Vancomycin HCl (Vanco rx to dose) 1 ea DAILY PRN MISC Per rx protocol 02/07/17 18:45 03/09/17 18:44 Vancomycin/Sodium Chloride 250 ml @ 166.667 mls/hr Q12HR IVPB 02/07/17 21:00 02/12/17 20:59 02/08/17 11:02 JM ALLISON Feb 08, 2017 12:19
--- NOTE | 2017-02-08 14:33 | Consultation ---
History of Present Illness General Date patient seen: Feb 08, 2017 Time patient seen: 14:33 Chief Complaint: Generalized Weakness Reason for Consultation: dyspnea Present Illness HPI 71 y/o M, group home resident with hx of CVA, bed bound, DM2, dysphagia, non verbal is admitted on 02/07 with cough and congestion. Has had increased phlegm production. Patient recently admitted here 01/21-01/26 with fever and treated for presumed UTI and aspiration pneumonia with Ceftriaxone with plan for 7 days. Also had CoNS bacteremia, thought to be contaminant. Afebrile, no leukocytosis, CXR neg. found to have trop elev and mild lactic acid elevation, now resolved. Started on IV vanco and Cefepime. Allergies: Coded Allergies: No Known Allergies (Unverified , 01/21/17) Medication History Scheduled Amlodipine Besylate (Norvasc), 5 MG ORAL DAILY, (Reported) Ascorbic Acid* (Vitamin C*), 250 MG ORAL DAILY, (Reported) Atorvastatin Calcium* (Lipitor*), 40 MG ORAL BEDTIME, (Reported) Carboxymethylcellulose Sodium (Lubricant Eye), 1 DRP OP THREE TIMES A DAY, ( Reported) Carvedilol (Coreg), 3.125 MG ORAL EVERY 12 HOURS, (Reported) Cholecalciferol (Vitamin D3)* (Vitamin D*), 2,000 UNITS ORAL DAILY, (Reported) Docusate Sodium* (Colace*), 100 MG ORAL DAILY, (Reported) Heparin Sod (Porcine) (Heparin Sodium*), 5,000 UNITS SUBQ EVERY 12 HOURS, ( Reported) Ipratropium/Albuterol Sulfate (DuoNeb 0.5-3(2.5)mg/3ml), 3 ML HHN EVERY 4 HOURS, (Reported) Lactobacillus Acidophilus (Acidophilus), 1 EACH PO THREE TIMES A DAY, (Reported) Lactulose (Lactulose*), 15 ML ORAL BID, (Reported) Mag Hydrox/Al Hydrox/Simeth (Alum-Mag Hydroxide-Simeth Liq), 30 ML PO EVERY 4 HOURS, (Reported) Magnesium Hydroxide* (Milk Of Magnesia*), 30 ML ORAL DAILY, (Reported) Magnesium Oxide (Mag-Oxide), 400 MG PO BID, (Reported) Metformin Hcl* (Metformin Hcl*), 500 MG ORAL TWICE A DAY, (Reported) Multivitamins* (Multivitamins*), 1 TAB ORAL DAILY, (Reported) Sennosides (Senna), 2 TAB PO BEDTIME, (Reported) Sitagliptin* (Januvia*), 50 MG ORAL DAILY, (Reported) Tamsulosin Hcl (Tamsulosin Hcl*), 0.4 MG ORAL BEDTIME, (Reported) Scheduled PRN Acetaminophen* (Acetaminophen 325MG Tablet*), 650 MG ORAL Q4H PRN for MILD PAIN, (Reported) Bisacodyl (Dulcolax), 10 MG RC DAILY PRN for Constipation, (Reported) Lorazepam* (Ativan*), 0.5 MG ORAL EVERY 6 HOURS PRN for For Anxiety, (Reported) Promethazine HCl (Promethegan), 6.25 MG RECTAL Q6H PRN for Nausea & Vomiting, ( Reported) Temazepam* (Restoril*), 15 MG ORAL BEDTIME PRN for Insomnia, (Reported) Miscellaneous Medications Insulin Aspart* (Novolog*), 0 SUBQ, (Reported) Patient History Healthcare decision maker N Resuscitation status Full Code Advanced Directive on File No Patient History Narrative Pmhx as above SHx unable to obtain Fhx unable to obtain Review of Systems ROS Narrative unable to obtain Physical Exam Physical Exam Narrative General Appearance: resting comfortably in bed HEENT: atraumatic, bilateral eye PERRL, dry mucus membranes Neck: supple Respiratory: crackles - diffusely Cardiovascular : regular rate, rhythm, no edema Gastrointestinal: non tender, soft Genitourinary: no CVA tenderness Musculoskeletal: other - Patient has large previous CVA significant deficits Neurologic: responsive - To verbal stimuli however patient not able to speak, not able to follow commands Skin: other - Ulcers and heel breakdown Last 24 Hour Vital Signs Date Time Temp Pulse Resp B/P (MAP) Pulse Ox O2 Delivery O2 Flow Rate FiO2 02/08/17 12:00 83 02/08/17 12:00 98.1 84 20 139/77 96 Nasal Cannula 2.0 02/08/17 09:43 90 148/80 02/08/17 09:43 90 148/80 02/08/17 08:00 98.2 90 20 148/80 95 Nasal Cannula 2.0 02/08/17 08:00 91 02/08/17 04:03 92 02/08/17 04:00 98.2 92 27 152/83 Nasal Cannula 2.0 02/08/17 00:11 89 02/08/17 00:00 97.0 91 20 118/72 97 Room Air 02/07/17 23:40 97.9 90 23 145/93 98 Nasal Cannula 2.0 02/07/17 20:13 98.7 96 20 153/80 100 Nasal Cannula 2.0 28 02/07/17 20:13 96 25 143/73 98 Nasal Cannula 2.0 02/07/17 19:47 28 02/07/17 19:47 103 20 100 Nasal Cannula 2.0 28 02/07/17 19:35 91 16 99 Nasal Cannula 2.0 28 02/07/17 19:26 94 22 Nasal Cannula 2.0 02/07/17 19:14 98.7 94 22 153/80 98 Nasal Cannula 2.0 02/07/17 18:00 93 24 146/78 97 Nasal Cannula 2.0 02/07/17 17:10 94 22 114/81 97 Nasal Cannula 2.0 02/07/17 16:55 98.4 96 26 126/77 96 Nasal Cannula 2.0 Intake and Output 02/08/17 02/09/17 19:00 07:00 Output Total 350 ml Balance -350 ml Output Urine Total 350 ml # Voids 1 Laboratory Tests Test 02/07/17 17:10 02/07/17 17:15 02/07/17 19:21 02/08/17 07:25 Arterial Blood pH 7.460 (7.350-7.450) Arterial Blood Partial Pressure CO2 39.7 mmHg (35.0-45.0) Arterial Blood Partial Pressure O2 63.3 mmHg (75.0-100.0) L Arterial Blood HCO3 27.6 mmol/L (22.0-26.0) H Arterial Blood Oxygen Saturation 92.0 % (92.0-98.0) Arterial Blood Base Excess 3.6 Sohail Test Positive White Blood Count 9.0 K/UL (4.8-10.8) 10.3 K/UL (4.8-10.8) Red Blood Count 4.06 M/UL (4.70-6.10) L 3.85 M/UL (4.70-6.10) L Hemoglobin 11.3 G/DL (14.2-18.0) L 11.2 G/DL (14.2-18.0) L Hematocrit 35.5 % (42.0-52.0) L 33.5 % (42.0-52.0) L Mean Corpuscular Volume 88 FL (80-99) 87 FL (80-99) Mean Corpuscular Hemoglobin 27.9 PG (27.0-31.0) 29.2 PG (27.0-31.0) Mean Corpuscular Hemoglobin Concent 31.9 G/DL (32.0-36.0) L 33.5 G/DL (32.0-36.0) Red Cell Distribution Width 13.4 % (11.6-14.8) 13.2 % (11.6-14.8) Platelet Count 414 K/UL (150-450) 414 K/UL (150-450) Mean Platelet Volume 5.5 FL (6.5-10.1) L 5.7 FL (6.5-10.1) L Neutrophils (%) (Auto) 61.8 % (45.0-75.0) 58.4 % (45.0-75.0) Lymphocytes (%) (Auto) 24.2 % (20.0-45.0) 25.4 % (20.0-45.0) Monocytes (%) (Auto) 11.2 % (1.0-10.0) H 13.1 % (1.0-10.0) H Eosinophils (%) (Auto) 1.8 % (0.0-3.0) 2.2 % (0.0-3.0) Basophils (%) (Auto) 1.1 % (0.0-2.0) 0.9 % (0.0-2.0) Sodium Level 134 MMOL/L (136-145) L 137 MMOL/L (136-145) Potassium Level 4.1 MMOL/L (3.5-5.1) 4.0 MMOL/L (3.5-5.1) Chloride Level 97 MMOL/L (98-107) L 101 MMOL/L (98-107) Carbon Dioxide Level 31 MMOL/L (21-32) 30 MMOL/L (21-32) Anion Gap 6 mmol/L (5-15) 6 mmol/L (5-15) Blood Urea Nitrogen 20 mg/dL (7-18) H 13 mg/dL (7-18) Creatinine 1.1 MG/DL (0.55-1.30) 0.8 MG/DL (0.55-1.30) Estimat Glomerular Filtration Rate > 60 mL/min (>60) > 60 mL/min (>60) Glucose Level 309 MG/DL (74-106) H 187 MG/DL (74-106) #H Lactic Acid Level 2.30 mmol/L (0.66-2.22) H 2.10 mmol/L (0.66-2.22) Calcium Level 8.9 MG/DL (8.5-10.1) 9.0 MG/DL (8.5-10.1) Total Bilirubin 0.4 MG/DL (0.2-1.0) Aspartate Amino Transf (AST/SGOT) 13 U/L (15-37) L Alanine Aminotransferase (ALT/SGPT) 19 U/L (12-78) Alkaline Phosphatase 130 U/L (46-116) H Total Creatine Kinase 81 U/L (26-308) Creatine Kinase MB 2.2 NG/ML (0.0-3.6) Creatine Kinase MB Relative Index 2.7 Troponin I 0.076 ng/mL (0.000-0.056) 0.072 ng/mL (0.000-0.056) 0.081 ng/mL (0.000-0.056) Pro-B-Type Natriuretic Peptide 525 pg/mL (0-125) H Total Protein 7.2 G/DL (6.4-8.2) Albumin 2.9 G/DL (3.4-5.0) L 3.0 G/DL (3.4-5.0) L Globulin 4.3 g/dL Albumin/Globulin Ratio 0.7 (1.0-2.7) L Lipase 108 U/L (73-393) Phosphorus Level 3.1 MG/DL (2.5-4.9) Height (Feet): 6 Height (Inches): 1.00 Weight (Pounds): 178 Medications Current Medications Medications (Trade) Dose Ordered Sig/Clint Route PRN Reason Start Time Stop Time Status Last Admin Dose Admin Acetaminophen (Tylenol) 650 mg Q4H PRN ORAL fever 02/07/17 18:45 03/09/17 18:44 Al Hydroxide/Mg Hydroxide (Mylanta II) 30 ml Q6H PRN ORAL dyspepsia 02/07/17 18:45 03/09/17 18:44 Albuterol/ Ipratropium (DuoNeb 0.5-3(2.5)mg/3ml) 3 ml Q4H PRN HHN Shortness of Breath 02/07/17 18:45 02/12/17 18:44 02/07/17 19:35 Amlodipine Besylate (Norvasc) 5 mg DAILY ORAL 02/08/17 09:00 03/10/17 08:59 02/08/17 09:43 Carvedilol (Coreg) 3.125 mg EVERY 12 HOURS ORAL 02/07/17 21:00 03/09/17 20:59 02/08/17 09:43 Cefepime HCl 1 gm/ Dextrose 55 ml @ 110 mls/hr Q12H IV 02/08/17 07:30 02/14/17 19:29 02/08/17 06:51 Dextrose (Dextrose 50%) STAT PRN IV Hypoglycemia 02/07/17 18:45 03/09/17 18:44 Heparin Sodium (Porcine) (Heparin 5000 units/ml) 5,000 units EVERY 12 HOURS SUBQ 02/07/17 21:00 03/09/17 20:59 02/08/17 09:45 Insulin Aspart (NovoLOG) BEFORE MEALS AND HS SUBQ 02/07/17 21:00 03/09/17 20:59 Lorazepam (Ativan) 0.5 mg Q6H PRN ORAL For Anxiety 02/07/17 18:45 02/14/17 18:44 Nitroglycerin (Ntg) 0.4 mg Q5MIN X 3 DOSES PRN SL Prn Chest Pain 02/07/17 18:45 03/09/17 18:44 Ondansetron HCl (Zofran) 4 mg Q6H PRN IVP Nausea & Vomiting 02/07/17 18:45 03/09/17 18:44 Polyethylene Glycol (Miralax) 17 gm DAILYPRN PRN ORAL Constipation 02/07/17 18:45 03/09/17 18:44 Promethazine HCl/ Codeine (Phenergan with Codeine) 5 ml Q4H PRN ORAL For Cough 02/07/17 18:45 03/09/17 18:44 02/07/17 23:30 Sitagliptin Phosphate (Januvia) 50 mg DAILY ORAL 02/08/17 09:00 03/10/17 08:59 02/08/17 09:42 Tamsulosin HCl (Flomax) 0.4 mg BEDTIME ORAL 02/07/17 21:00 03/09/17 20:59 Temazepam (Restoril) 15 mg HSPRN PRN ORAL Insomnia 02/07/17 18:45 02/14/17 18:44 Vancomycin HCl (Vanco rx to dose) 1 ea DAILY PRN MISC Per rx protocol 02/07/17 18:45 03/09/17 18:44 Vancomycin/Sodium Chloride 250 ml @ 166.667 mls/hr Q12HR IVPB 02/07/17 21:00 02/12/17 20:59 02/08/17 11:02 Assessment/Plan Assessment/Plan ABX: IV vancomycin/Cefepime 02/07- Assessment: -Cough/sputum production- possible URI vs bronchitis, no PNA on CXR- r/o Influenza -CXR: no acute disease -Afebrile/no leukocytosis -Tropinenmia -Lactic acidosis, mild- resolved -recent Probable P. mirabilis UTI s/p rx 01/21 u/a WBC 15-20, nit neg, leuk +3; ucx 10-20K P mirabilis (S. Ancef, I Cipro/levo) -recent COnS 04/22 bacteremia- contaminant -Bcx 01/21 04/22 ConS, Bcx 01/25neg x4 -Pressure heel ulcer,with prior hx of OM -heel xray 01/25: Abnormal appearance of the posterior calcaneus which is either been resected or chronically eroded. -Dm2 -CVA -Dysphagia Plan: -dc IV Vnaco and Cefepime -Azithromycin PO for bronchitis -Influenza testing -f/u cx -Monitor CBC/BMP, temperatures -wound care Thank you for this consultation. Will continue to follow along with you. Discussed with RN and son at bedside. Araceli Mays M.D. Feb 08, 2017 14:33
[2017-02-08 15:38] VITALS: BP 151/85
[2017-02-08] MEDS ORDERED: Azithromycin 250mg tab ORAL ONE (16:00)
[2017-02-08 20:00] VITALS: BP 120/63
[2017-02-08] MEDS: Tamsulosin 0.4mg cap ORAL SCH (20:09)
--- NOTE | 2017-02-08 20:11 | Cardiology Progress Note ---
Assessment/Plan Assessment/Plan respiratory insuf persistenlyu min abn trop o f? sig without peak or michelle repeat clovis adn trop in amd echo treat underlyign pulm issue [id number] Objective Last 24 Hour Vital Signs Date Time Temp Pulse Resp B/P (MAP) Pulse Ox O2 Delivery O2 Flow Rate FiO2 02/08/17 17:30 Nasal Cannula 2.0 28 02/08/17 16:00 86 02/08/17 15:38 98.1 86 20 151/85 96 Nasal Cannula 2.0 02/08/17 12:00 83 02/08/17 12:00 98.1 84 20 139/77 96 Nasal Cannula 2.0 02/08/17 09:43 90 148/80 02/08/17 09:43 90 148/80 02/08/17 08:00 98.2 90 20 148/80 95 Nasal Cannula 2.0 02/08/17 08:00 91 02/08/17 04:03 92 02/08/17 04:00 98.2 92 27 152/83 Nasal Cannula 2.0 02/08/17 00:11 89 02/08/17 00:00 97.0 91 20 118/72 97 Room Air 02/07/17 23:40 97.9 90 23 145/93 98 Nasal Cannula 2.0 02/07/17 20:13 98.7 96 20 153/80 100 Nasal Cannula 2.0 28 02/07/17 20:13 96 25 143/73 98 Nasal Cannula 2.0 Intake and Output 02/08/17 02/09/17 19:00 07:00 Intake Total 333.334 ml Output Total 350 ml Balance -16.666 ml IV Total 333.334 ml Output Urine Total 350 ml # Voids 1 Laboratory Tests Test 02/08/17 07:25 White Blood Count 10.3 K/UL (4.8-10.8) Red Blood Count 3.85 M/UL (4.70-6.10) L Hemoglobin 11.2 G/DL (14.2-18.0) L Hematocrit 33.5 % (42.0-52.0) L Mean Corpuscular Volume 87 FL (80-99) Mean Corpuscular Hemoglobin 29.2 PG (27.0-31.0) Mean Corpuscular Hemoglobin Concent 33.5 G/DL (32.0-36.0) Red Cell Distribution Width 13.2 % (11.6-14.8) Platelet Count 414 K/UL (150-450) Mean Platelet Volume 5.7 FL (6.5-10.1) L Neutrophils (%) (Auto) 58.4 % (45.0-75.0) Lymphocytes (%) (Auto) 25.4 % (20.0-45.0) Monocytes (%) (Auto) 13.1 % (1.0-10.0) H Eosinophils (%) (Auto) 2.2 % (0.0-3.0) Basophils (%) (Auto) 0.9 % (0.0-2.0) Sodium Level 137 MMOL/L (136-145) Potassium Level 4.0 MMOL/L (3.5-5.1) Chloride Level 101 MMOL/L (98-107) Carbon Dioxide Level 30 MMOL/L (21-32) Anion Gap 6 mmol/L (5-15) Blood Urea Nitrogen 13 mg/dL (7-18) Creatinine 0.8 MG/DL (0.55-1.30) Estimat Glomerular Filtration Rate > 60 mL/min (>60) Glucose Level 187 MG/DL (74-106) #H Calcium Level 9.0 MG/DL (8.5-10.1) Phosphorus Level 3.1 MG/DL (2.5-4.9) Troponin I 0.081 ng/mL (0.000-0.056) Albumin 3.0 G/DL (3.4-5.0) ANALISA PERRY Feb 08, 2017 20:11
--- NOTE | 2017-02-09 00:30 | Consultation ---
DATE OF CONSULTATION: 02/08/2017 CARDIOLOGY CONSULTATION CONSULTING PHYSICIAN: Miguelangel Burk M.D. REFERRING PHYSICIAN: Hebert Jean M.D. REASON FOR REFERRAL: Shortness of breath. HISTORY OF PRESENT ILLNESS: This is a very unfortunate middle-aged gentleman, who is a resident of [facility]. The patient has been in this hospital on at least 2 occasions because of shortness of breath and coughing and he comes back with the same issues, coughing and shortness of breath, and his cough apparently sounds productive according to his brother, who is providing me with some of this information. There have been no reports of any fevers, and the patient denies any chest pain. Denies any PND or orthopnea. 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 ALLERGIES: He is not allergic to any medications. SOCIAL HISTORY: He is unemployed. He did smoke 1 pack a day, but discontinued smoking long time ago. Denied drinking and denied any use of illicit drug use. FAMILY HISTORY: Both parents in their 70s of cardiovascular disease. One brother and one sister in good health. No children. REVIEW OF SYSTEMS: GASTROINTESTINAL: Questionable nausea. GENITOURINARY: Negative. PULMONARY: Positive coughing. CONSTITUTIONAL: Negative. NEUROLOGICAL: Basically bedbound and not ambulatory. PHYSICAL EXAMINATION: GENERAL: Physical examination shows him to be an elderly gentleman, in no respiratory distress. NECK: Supple. No jugular venous distention. LUNGS: Significant rhonchi, camouflaging all of his heart sounds. CARDIAC: Regular rhythm. No heaves or thrills. ABDOMEN: Soft and nontender. Positive bowel sounds. EXTREMITIES: There is no edema. NEUROLOGICAL: He is awake, responsive, and is in no respiratory distress. LABORATORY VALUES: An EKG shows normal QRS axis and some low voltage criteria. The echocardiogram, preliminary shows global hypokinesis, ejection fraction 45% to 50%, moderate left ventricular hypertrophy, and mild diastolic dysfunction. His labs, white count 10.3, hemoglobin 11.2, and platelet count of 414,000. A pH of 7.46, pCO2 of 39, pO2 of 63, and 92% saturation. Sodium 137, potassium 4.0, chloride 101, bicarbonate 30, BUN of 13, creatinine 0.8, and glucose of 187. Troponin of 0.076, 0.072, and 0.081 without any peak or michelle. Albumin of 3. His chest x-ray reportedly shows negative. Lungs are clear. ASSESSMENT AND PLAN: 1. Respiratory insufficiency, possible bronchitis versus pneumonia. 2. Minimal abnormal cardiac enzymes without a peak or michelle. 3. History of cerebrovascular accident. 4. Diabetes mellitus. 5. Hypertension. This patient was seen in cardiac consultation. The patient does not have any chest pain at this time. The abnormality of the cardiac enzymes are minimal in nature and not reached the level for myonecrosis for myocardial infarction and likely demand related. We will have to review his echocardiogram to see if he has got any segmental wall motion abnormalities or not. This patient, however, needs to be treated for his respiratory issues that brought him to the hospital at the first place. Repeat EKG will also be ordered. Miguelangel Burk M.D. DR: Melissa JOB#: [id number] CC:
[2017-02-09 04:41] VITALS: BP 139/83
[2017-02-09] MEDS: NovoLOG Insulin Flexpen SUBQ SCH ×4 (06:30→20:46)
[2017-02-09 08:00] VITALS: BP 139/81
--- NOTE | 2017-02-09 08:09 | Cardiology Report ---
APPROVED REPORT EXAM: Two-dimensional and M-mode echocardiogram with Doppler and color Doppler. INDICATION LV function M-Mode DIMENSIONS IVSd1.5 (0.7-1.1cm)Left Atrium (MM)3.5 (1.6-4.0cm) LVDd4.0 (3.5-5.6cm)Aortic Root3.1 (2.0-3.7cm) PWd1.2 (0.7-1.1cm)Aortic Cusp Exc.1.8 (1.5-2.0cm) LVDs3.1 (2.5-4.0cm) PWs1.2 cm Technically difficult study due to poor acoustical windows and pts position. Normal left ventricular chamber size and function. Left ventricular ejection fraction estimated to be approximately 50%. Moderate left ventricular hypertrophy by 2-D. No evidence of pericardial effusion. All other cardiac chamber sizes are within normal limits. Focal aortic valve sclerosis with adequate cusp excursion. Thickened mitral valve leaflets with normal excursion. Mitral annulus and aortic root calcification. Pulmonic valve not well visualized. Normal tricuspid valve structure. IVC at normal size with physiologic collapse. A color flow and spectral Doppler study was performed and revealed: Trace mitral regurgitation. Mitral diastolic velocities suggest reduced left ventricular relaxation c/w mild LV diastolic dysfunction (Grade I). Trace tricuspid regurgitation. Tricuspid systolic velocities suggests peak right ventricular systolic pressure of 12 mmHg
[2017-02-09] MEDS: sitaGLIPtin 25mg tab ORAL SCH (08:42)
[2017-02-09] MEDS: Heparin 5000 units/ml inj SUBQ SCH ×2 (08:45→20:47)
--- NOTE | 2017-02-09 08:46 | Cardiology Report ---
APPROVED REPORT EKG Measurement Heart [id number] Normal sinus rhythm Low voltage QRS Possible Inferior infarct, age undetermined Abnormal ECG
--- NOTE | 2017-02-09 11:08 | Infectious Diseases Prog Note ---
Assessment/Plan Assessment/Plan Assessment: -Cough/sputum production- possible URI vs bronchitis, no PNA on CXR- -CXR: no acute disease -Flu neg -Afebrile/no leukocytosis -Tropinenmia -Lactic acidosis, mild- resolved -recent Probable P. mirabilis UTI s/p rx 01/21 u/a WBC 15-20, nit neg, leuk +3; ucx 10-20K P mirabilis (S. Ancef, I Cipro/levo) -recent COnS 04/22 bacteremia- contaminant -Bcx 01/21 04/22 ConS, Bcx 01/25neg x4 -Pressure heel ulcer,with prior hx of OM; healing, no signs of infection -heel xray 01/25: Abnormal appearance of the posterior calcaneus which is either been resected or chronically eroded. -Dm2 -CVA -Dysphagia Plan: -Continue PO Azithromycin #2 for bronchitis -s/p 2d Vanco/Cefepime 02/08 -f/u cx -Monitor CBC/BMP, temperatures -wound care Thank you for this consultation. Will continue to follow along with you. Discussed with RN and son at bedside. Subjective Allergies: Coded Allergies: No Known Allergies (Unverified , 01/21/17) Subjective afebrile VSS flu neg Objective Vital Signs Last 24 Hour Vital Signs Date Time Temp Pulse Resp B/P (MAP) Pulse Ox O2 Delivery O2 Flow Rate FiO2 02/09/17 08:42 93 139/83 02/09/17 08:42 93 139/83 02/09/17 08:00 98.1 96 20 139/81 94 Room Air 02/09/17 07:44 96 Nasal Cannula 2.0 02/09/17 07:44 Nasal Cannula 2.0 02/09/17 04:41 97.9 93 20 139/83 95 Room Air 02/09/17 03:45 89 02/08/17 23:41 97 02/08/17 21:29 Nasal Cannula 2.0 02/08/17 21:28 96 Nasal Cannula 2.0 02/08/17 20:09 99 120/63 02/08/17 20:00 98.4 100 20 120/63 94 02/08/17 19:04 93 02/08/17 17:30 Nasal Cannula 2.0 02/08/17 16:00 86 02/08/17 15:38 98.1 86 20 151/85 96 Nasal Cannula 2.0 02/08/17 12:00 83 02/08/17 12:00 98.1 84 20 139/77 96 Nasal Cannula 2.0 Height (Feet): 6 Height (Inches): 1.00 Weight (Pounds): 178 Objective General Appearance: resting comfortably in bed HEENT: atraumatic, bilateral eye PERRL, dry mucus membranes Neck: supple Respiratory: crackles - diffusely Cardiovascular : regular rate, rhythm, no edema Gastrointestinal: non tender, soft Genitourinary: no CVA tenderness Musculoskeletal: other - Patient has large previous CVA significant deficits Neurologic: responsive - To verbal stimuli however patient not able to speak, not able to follow commands Skin: other - Ulcers and heel breakdown Microbiology Date/Time Source Procedure Growth Status 02/07/17 15:30 Blood Blood Culture - Preliminary NO GROWTH AFTER 24 HOURS Resulted 02/07/17 15:15 Blood Blood Culture - Preliminary NO GROWTH AFTER 24 HOURS Resulted 02/08/17 18:00 Nasal Nares Influenza Types A,B Antigen (GUERDA) - Final Complete 02/07/17 18:40 Nasal Nares MRSA Culture - Final NO METHICILLIN RESISTANT STAPH AUREUS... Complete 02/07/17 18:40 Rectum VRE Culture - Final Enterococcus Faecalis - Vre Complete Laboratory Tests Test 02/09/17 07:10 Troponin I 0.079 ng/mL (0.000-0.056) Current Medications Medications (Trade) Dose Ordered Sig/Clint Route PRN Reason Start Time Stop Time Status Last Admin Dose Admin Acetaminophen (Tylenol) 650 mg Q4H PRN ORAL fever 02/07/17 18:45 03/09/17 18:44 Al Hydroxide/Mg Hydroxide (Mylanta II) 30 ml Q6H PRN ORAL dyspepsia 02/07/17 18:45 03/09/17 18:44 Albuterol/ Ipratropium (DuoNeb 0.5-3(2.5)mg/3ml) 3 ml Q4H PRN HHN Shortness of Breath 02/07/17 18:45 02/12/17 18:44 02/07/17 19:35 Amlodipine Besylate (Norvasc) 5 mg DAILY ORAL 02/08/17 09:00 03/10/17 08:59 02/09/17 08:42 Azithromycin (Zithromax) 250 mg DAILY@1600 ORAL 02/09/17 16:00 02/16/17 15:59 Carvedilol (Coreg) 3.125 mg EVERY 12 HOURS ORAL 02/07/17 21:00 03/09/17 20:59 02/09/17 08:42 Dextrose (Dextrose 50%) STAT PRN IV Hypoglycemia 02/07/17 18:45 03/09/17 18:44 Heparin Sodium (Porcine) (Heparin 5000 units/ml) 5,000 units EVERY 12 HOURS SUBQ 02/07/17 21:00 03/09/17 20:59 02/09/17 08:45 Insulin Aspart (NovoLOG) BEFORE MEALS AND HS SUBQ 02/07/17 21:00 03/09/17 20:59 02/08/17 20:10 Lorazepam (Ativan) 0.5 mg Q6H PRN ORAL For Anxiety 02/07/17 18:45 02/14/17 18:44 Nitroglycerin (Ntg) 0.4 mg Q5MIN X 3 DOSES PRN SL Prn Chest Pain 02/07/17 18:45 03/09/17 18:44 Ondansetron HCl (Zofran) 4 mg Q6H PRN IVP Nausea & Vomiting 02/07/17 18:45 03/09/17 18:44 Polyethylene Glycol (Miralax) 17 gm DAILYPRN PRN ORAL Constipation 02/07/17 18:45 03/09/17 18:44 Promethazine HCl/ Codeine (Phenergan with Codeine) 5 ml Q4H PRN ORAL For Cough 02/07/17 18:45 03/09/17 18:44 02/07/17 23:30 Sitagliptin Phosphate (Januvia) 50 mg DAILY ORAL 02/08/17 09:00 03/10/17 08:59 02/09/17 08:42 Tamsulosin HCl (Flomax) 0.4 mg BEDTIME ORAL 02/07/17 21:00 03/09/17 20:59 02/08/17 20:09 Temazepam (Restoril) 15 mg HSPRN PRN ORAL Insomnia 02/07/17 18:45 02/14/17 18:44 Araceli Mays M.D. Feb 09, 2017 11:08
[2017-02-09 12:00] VITALS: BP 128/80
--- NOTE | 2017-02-09 12:09 | Cardiology Progress Note ---
Assessment/Plan Assessment/Plan 1. Respiratory insufficiency, aspiration risk 2. persisstent Minimal abnormal cardiac enzymes without a peak or michelle. 3. History of cerebrovascular accident. 4. Diabetes mellitus. 5. Hypertension. brother indicates despite begin npo and not given any food he purchased scrambled eggs form cafeteria adn gave to pt this am ! we discussed the danger associated with aspiration trop remain persistency min abn with out a peak nor michelle to suggest coronary related to review echo ekg reviewed tele reviewed d/w dr barajas d/w brother Subjective Respiratory: Reports: cough, sputum Objective Last 24 Hour Vital Signs Date Time Temp Pulse Resp B/P (MAP) Pulse Ox O2 Delivery O2 Flow Rate FiO2 02/09/17 08:42 93 139/83 02/09/17 08:42 93 139/83 02/09/17 08:00 98.1 96 20 139/81 94 Room Air 02/09/17 07:44 96 Nasal Cannula 2.0 28 02/09/17 07:44 Nasal Cannula 2.0 28 02/09/17 04:41 97.9 93 20 139/83 95 Room Air 02/09/17 03:45 89 02/08/17 23:41 97 02/08/17 21:29 Nasal Cannula 2.0 28 02/08/17 21:28 96 Nasal Cannula 2.0 28 02/08/17 20:09 99 120/63 02/08/17 20:00 98.4 100 20 120/63 94 02/08/17 19:04 93 02/08/17 17:30 Nasal Cannula 2.0 28 02/08/17 16:00 86 02/08/17 15:38 98.1 86 20 151/85 96 Nasal Cannula 2.0 General Appearance: alert Neck: supple Cardiovascular: normal rate Respiratory/Chest: rhonchi - bilaterally Abdomen: normal bowel sounds, non tender, soft Extremities: no swelling Laboratory Tests Test 02/09/17 07:10 Troponin I 0.079 ng/mL (0.000-0.056) Microbiology Date/Time Source Procedure Growth Status 02/07/17 15:30 Blood Blood Culture - Preliminary NO GROWTH AFTER 24 HOURS Resulted 02/07/17 15:15 Blood Blood Culture - Preliminary NO GROWTH AFTER 24 HOURS Resulted 02/08/17 18:00 Nasal Nares Influenza Types A,B Antigen (GUERDA) - Final Complete 02/07/17 18:40 Nasal Nares MRSA Culture - Final NO METHICILLIN RESISTANT STAPH AUREUS... Complete 02/07/17 18:40 Rectum VRE Culture - Final Enterococcus Faecalis - Vre Complete ANALISA DSOUZA Feb 09, 2017 12:09
--- NOTE | 2017-02-09 12:45 | Pulmonology Progress Note ---
Assessment/Plan Problems: (1) Bronchitis (2) Non-ST elevation (NSTEMI) myocardial infarction (3) Persistent cough (4) At high risk for aspiration (5) History of CVA (cerebrovascular accident) Assessment/Plan less cough feels better brother at bed site swallow study pending awaiting cardio reviewed, Dr. Burk agreed with med/surtg pt's brother refusing PEG placement med/surg Subjective ROS Limited/Unobtainable: No Constitutional: Reports: no symptoms HEENT: Repors: no symptoms Respiratory: Reports: no symptoms Cardiovascular: Reports: no symptoms Allergies: Coded Allergies: No Known Allergies (Unverified , 01/21/17) Objective Last 24 Hour Vital Signs Date Time Temp Pulse Resp B/P (MAP) Pulse Ox O2 Delivery O2 Flow Rate FiO2 02/09/17 12:00 97.8 95 18 128/80 Room Air 02/09/17 08:42 93 139/83 02/09/17 08:42 93 139/83 02/09/17 08:00 98.1 96 20 139/81 94 Room Air 02/09/17 07:44 96 Nasal Cannula 2.0 28 02/09/17 07:44 Nasal Cannula 2.0 28 02/09/17 04:41 97.9 93 20 139/83 95 Room Air 02/09/17 03:45 89 02/08/17 23:41 97 02/08/17 21:29 Nasal Cannula 2.0 28 02/08/17 21:28 96 Nasal Cannula 2.0 28 02/08/17 20:09 99 120/63 02/08/17 20:00 98.4 100 20 120/63 94 02/08/17 19:04 93 02/08/17 17:30 Nasal Cannula 2.0 28 02/08/17 16:00 86 02/08/17 15:38 98.1 86 20 151/85 96 Nasal Cannula 2.0 Objective swallow study done, pts brohter refusing PEG insertion General Appearance: WD/WN HEENT: normocephalic, anicteric Respiratory/Chest: chest wall non-tender, normal breath sounds, chest wall tender Cardiovascular: normal rate, regular rhythm, no JVD Abdomen: soft, non tender Microbiology Date/Time Source Procedure Growth Status 02/07/17 15:30 Blood Blood Culture - Preliminary NO GROWTH AFTER 24 HOURS Resulted 02/07/17 15:15 Blood Blood Culture - Preliminary NO GROWTH AFTER 24 HOURS Resulted 02/08/17 18:00 Nasal Nares Influenza Types A,B Antigen (GUERDA) - Final Complete 02/07/17 18:40 Nasal Nares MRSA Culture - Final NO METHICILLIN RESISTANT STAPH AUREUS... Complete 02/07/17 18:40 Rectum VRE Culture - Final Enterococcus Faecalis - Vre Complete Laboratory Tests 02/09/17 07:10: Troponin I 0.079H Current Medications Medications (Trade) Dose Ordered Sig/Clint Route PRN Reason Start Time Stop Time Status Last Admin Dose Admin Acetaminophen (Tylenol) 650 mg Q4H PRN ORAL fever 02/07/17 18:45 03/09/17 18:44 Al Hydroxide/Mg Hydroxide (Mylanta II) 30 ml Q6H PRN ORAL dyspepsia 02/07/17 18:45 03/09/17 18:44 Albuterol/ Ipratropium (DuoNeb 0.5-3(2.5)mg/3ml) 3 ml Q4H PRN HHN Shortness of Breath 02/07/17 18:45 02/12/17 18:44 02/07/17 19:35 Amlodipine Besylate (Norvasc) 5 mg DAILY ORAL 02/08/17 09:00 03/10/17 08:59 02/09/17 08:42 Azithromycin (Zithromax) 250 mg DAILY@1600 ORAL 02/09/17 16:00 02/16/17 15:59 Carvedilol (Coreg) 3.125 mg EVERY 12 HOURS ORAL 02/07/17 21:00 03/09/17 20:59 02/09/17 08:42 Dextrose (Dextrose 50%) STAT PRN IV Hypoglycemia 02/07/17 18:45 03/09/17 18:44 Heparin Sodium (Porcine) (Heparin 5000 units/ml) 5,000 units EVERY 12 HOURS SUBQ 02/07/17 21:00 03/09/17 20:59 02/09/17 08:45 Insulin Aspart (NovoLOG) BEFORE MEALS AND HS SUBQ 02/07/17 21:00 03/09/17 20:59 02/08/17 20:10 Lorazepam (Ativan) 0.5 mg Q6H PRN ORAL For Anxiety 02/07/17 18:45 02/14/17 18:44 Nitroglycerin (Ntg) 0.4 mg Q5MIN X 3 DOSES PRN SL Prn Chest Pain 02/07/17 18:45 03/09/17 18:44 Ondansetron HCl (Zofran) 4 mg Q6H PRN IVP Nausea & Vomiting 02/07/17 18:45 03/09/17 18:44 Polyethylene Glycol (Miralax) 17 gm DAILYPRN PRN ORAL Constipation 02/07/17 18:45 03/09/17 18:44 Promethazine HCl/ Codeine (Phenergan with Codeine) 5 ml Q4H PRN ORAL For Cough 02/07/17 18:45 03/09/17 18:44 02/07/17 23:30 Sitagliptin Phosphate (Januvia) 50 mg DAILY ORAL 02/08/17 09:00 03/10/17 08:59 02/09/17 08:42 Tamsulosin HCl (Flomax) 0.4 mg BEDTIME ORAL 02/07/17 21:00 03/09/17 20:59 02/08/17 20:09 Temazepam (Restoril) 15 mg HSPRN PRN ORAL Insomnia 02/07/17 18:45 02/14/17 18:44 JM ALLISON Feb 09, 2017 12:45
[2017-02-09] MEDS ORDERED: NS 275ml ONE (14:20)
[2017-02-09] MEDS ORDERED: Tubing IV Secondary IV ONE (14:20)
[2017-02-09 16:00] VITALS: BP 121/71
[2017-02-09] MEDS ORDERED: Miralax 17gm pkt ORAL PRN (16:00)
[2017-02-09] MEDS ORDERED: Albuterol/Ipratropium 3ml neb HHN PRN (16:00)
[2017-02-09] MEDS ORDERED: LORazepam 0.5mg tab ORAL PRN (16:00)
[2017-02-09] MEDS ORDERED: Azithromycin 250mg tab ORAL SCH (16:00)
[2017-02-09] MEDS ORDERED: Nitroglycerin Subl 0.4mg tab SL PRN (16:00)
[2017-02-09] MEDS ORDERED: Mylanta II UD 30ml ORAL PRN (16:00)
[2017-02-09] MEDS: Azithromycin 250mg tab ORAL SCH (16:35)
[2017-02-09 20:00] VITALS: BP 124/69
[2017-02-09] MEDS: Tamsulosin 0.4mg cap ORAL SCH (20:39)
[2017-02-10] VITALS: BP 128/71
[2017-02-10 04:00] VITALS: BP 140/81
[2017-02-10] MEDS: NovoLOG Insulin Flexpen SUBQ SCH ×4 (05:54→20:18)
[2017-02-10 07:59] VITALS: BP 129/77
[2017-02-10 08:33] LABS: BASOPHILS % (AUTO) 1.3 % (0.0-2.0); EOSINOPHILS % (AUTO) 3.4 % (0.0-3.0); LYMPHOCYTES % (AUTO) 33.1 % (20.0-45.0); MEAN CORPUSCULAR HEMOGLOBIN 28.5 PG (27.0-31.0); MEAN CORPUSCULAR HGB CONC 32.7 G/DL (32.0-36.0); MEAN CORPUSCULAR VOLUME 87 FL (80-99); MEAN PLATELET VOLUME 5.7 FL (6.5-10.1); MONOCYTES % (AUTO) 12.1 % (1.0-10.0); NEUTROPHILS % (AUTO) 50.2 % (45.0-75.0); PLATELET COUNT 405 K/UL (150-450); RED BLOOD COUNT 3.91 M/UL (4.70-6.10); RED CELL DISTRIBUTION WIDTH 13.2 % (11.6-14.8); WHITE BLOOD COUNT 8.2 K/UL (4.8-10.8)
[2017-02-10 08:49] LABS: ANION GAP 8 mmol/L (5-15); CALCIUM 8.9 MG/DL (8.5-10.1); CARBON DIOXIDE 29 MMOL/L (21-32); CHLORIDE 104 MMOL/L (98-107); CREATININE 0.8 MG/DL (0.55-1.30); GLOMERULAR FILTRATION RATE > 60 mL/min (>60); POTASSIUM 3.1 MMOL/L (3.5-5.1); SODIUM 141 MMOL/L (136-145)
[2017-02-10] MEDS: sitaGLIPtin 50mg tab ORAL SCH (08:50)
[2017-02-10] MEDS: Heparin 5000 units/ml inj SUBQ SCH ×2 (08:51→20:17)
--- NOTE | 2017-02-10 08:57 | Diagnostic Imaging Report ---
APPROVED REPORT CPT Code: 58897 Present Symptoms Shortness of breath BILATERAL: Imaging reveals a patent deep venous system bilaterally. There is no evidence of thrombus within the femoral, popliteal or tibial segments. The greater saphenous veins are also within normal limits. Doppler indicates normal spontaneous flow within these segments.
--- NOTE | 2017-02-10 09:46 | Progress Note ---
DATE: 02/09/2017 SUBJECTIVE: The patient is awake, alert, afebrile, hemodynamically stable, but persistently inefficient cough. PHYSICAL EXAMINATION: VITAL SIGNS: Blood pressure 139/83, pulse is 95, respirations 20, and temperature was 97.8. HEENT: Eyes were normal. ENT, mucous membranes were moist and intact. NECK: Supple with no JVD without lymph nodes. LUNGS: Clear. There are bilateral rhonchi at both bases. HEART: Normal sounds with regular heart beats. There is no S3, S4, or pericardial rub. ABDOMEN: Soft and nontender with normal bowel sounds. EXTREMITIES: Warm without cyanosis, clubbing, or edema. LABORATORY AND DIAGNOSTIC DATA: Hemoglobin is 11.2, hematocrit 33.5 with MCV of 87, WBC of 10.3, and platelets 414. His BUN and creatinine are 13 and 0.8 respectively. His sodium is 137, potassium 4.0, chloride 101, and CO2 30. His troponin declined from 0.081 to 0.079. Echocardiogram revealed normal sized cardiac chambers, aortic sclerosis but is adequate the same can be seen of the mitral valve with mitral annulus and aortic root calcification, pulmonic valve was not visualized, appeared normal. Mitral velocity suggests left ventricular diastolic dysfunction, diastolic and systolic velocity suggests right ventricular systolic pressure of 12 mm. IMPRESSION: The patient has swallowing disorder with insertion of G-tube. However, the patient resists and his brother is supported decision. Therefore, the patient will continue at his own risk to be fed orally. Repeat laboratory tests and chest x-ray will be done in the morning as well as troponin. Epi Nicholas M.D. DR: ANGELA JOB#: [id number] CC:
--- NOTE | 2017-02-10 09:46 | History and Physical Report ---
DATE OF ADMISSION: 02/07/2017 CHIEF COMPLAINT: This is a second admission to [facility] of this 71-year-old patient because of aspiration pneumonia. HISTORY OF PRESENT ILLNESS: The patient was discharged from this hospital less than 2 weeks ago after admission in similar circumstances. He is a resident of an extended care facility where he has been in precarious condition over the last two weeks. He is known to have several chronic medical syndrome that will be detailed in the following paragraph and has been hemodynamically stable with persistent cough and inability to complete the meal for the last several weeks. In his first admission, the patient became short of breath, hypoxic, and tachycardic and came to [facility] ER where he was suspected to have aspiration pneumonia. This was associated with fever, tachycardia, and leukocytosis of 72,000. On admission, broad-spectrum IV antibiotic. At that time was suspicious for aspiration pneumonia. He received broad-spectrum IV antibiotic to reduce his leukocytosis to normal. The chest x-ray did not confirm presence of infiltrate. Following his discharge, he has persistent daily cough during meals but to a less extent. On the day of admission, he developed hypertension, tachycardia, hypoxia, and fever. He was transferred by paramedics to [facility] ER and was admitted again with aspiration pneumonia. PAST MEDICAL HISTORY: Denied any surgical antecedent. Medically, he is known to have chronic psychosis, benign prostatic hypertrophy, high blood pressure, and generalized anxiety. ALLERGIES: No known drug allergy. MEDICATIONS: The patient is on carvedilol 3.125 mg b.i.d., tamsulosin 0.4 mg daily, heparin 5000 units subcutaneously daily, aspart insulin on a moderate intensity protocol, 0.5 mg q.6 h. He is on multiple p.r.n. medications for motility disorder. He is on albuterol sulfate and ipratropium bromide inhalation therapy and temazepam 50 mg at bedtime. FAMILY HISTORY: Both parents from cardiovascular disease. He has one brother and one sister in good health. He has no children. SOCIAL HISTORY: He is single. He was born in [place] and lives in [place] for more than 10 years. Prior to disability, he was a businessman. Habits, the patient did not smoke, drink, or use illicit drugs. REVIEW OF SYSTEMS: The patient is unable to give any information regarding his state of health. PHYSICAL EXAMINATION: VITAL SIGNS: Blood pressure is 120/63, his pulse is 100, respirations were 20, and temperature 98.4. HEENT: Eyes were normal. Pupils were round, equal, and reactive to light. Sclerae were white. Conjunctiva was pink. Extraocular movements were normal. Temporal arteries were palpable bilaterally. There was no bilateral temporal wasting. Visual dee to confrontation were normal and neglect sign was negative. ENT, mucous membranes were not dehydrated. Auditory canals were clear and tympanic membranes could not be visualized. Nasal cavity was not congested. Nasal septum was intact. Soft palate was free of ulcerations. Pharynx was clear from exudate or tonsillar hypertrophy. Uvula yousuf to phonation. Tongue was moist, midline, and normally papillated. NECK: Supple. There was no goiter. No mass. No lymphadenopathy. There was no jugular venous distention. No bruits. Carotid upstroke was 2+. LUNGS: Bilateral rhonchi at both bases only. HEART: PMI was in the fifth left intercostal space in midclavicular line. There was normal S1 and normal S2. There was no murmur. No arrhythmia. No S3. No S4. No pericardial rub. There was tachycardia at rest. Sinus tachycardia on monitor. ABDOMEN: Soft and nontender without organomegaly. There were no masses palpable. Normal bowel sounds without bruits. There was no guarding. No rebound tenderness. No ascites. No hernia. No CVA tenderness. Liver span was 8 cm, mostly nontender. EXTREMITIES: No cyanosis, no clubbing, and no edema. Extremities were warm. NEUROLOGICAL: Reflexes in biceps, triceps, and brachioradialis were present. Patellar retinaculum was present. Plantar were in flexion. Cranial nerves from II through XII were symmetric and equal. Cerebellar function, gait, [id number], rapid alternating movements, and Romberg exam were declined by the patient. There was no tremor. No nystagmus. No extrapyramidal rigidity. Sensory exam to pinprick, cotton touch, and position are grossly normal. Motor strength was 5/5 against resistance in upper and lower extremities in proximal and distal muscles and correspond to age. LABORATORY AND DIAGNOSTIC DATA: His hemoglobin is 11.3, hematocrit 35.5 with MCV of 88, WBC of 9.0, and platelets are 414,000. His BUN and creatinine are 20 and 1.1 respectively. His sodium is 134, potassium 4.1, chloride 97, and CO2 is 31. SGOT and SGPT are normal. Troponin was 0.075. His proBNP was 525. His chest x-ray revealed clear lungs without infiltrate. IMPRESSION: Most probably, he has aspiration pneumonia. His radiated to trachea but not enough to cause infiltrate. PLAN: The patient will be started on azithromycin 250 mg p.o. b.i.d. He was on cefepime 1 g q.12 hours, which was discontinued and vancomycin 1 g IV piggyback q.12 hours. Pulmonary x ray consultant was called to assist in the management of this case. Repeat laboratory tests will be done in the morning. Epi Nicholas M.D. DR: ANGELA JOB#: [id number] CC:
--- NOTE | 2017-02-10 11:07 | Diagnostic Imaging Report ---
Indication: COUGH Technique: One view of the chest Comparison: 02/07/2017 Findings: Right suprahilar atelectasis or scarring is again demonstrated. The lungs and pleural spaces are otherwise clear. Heart size is normal. Aorta is tortuous. No significant change Impression: No acute process
[2017-02-10 11:41] VITALS: BP 149/95
--- NOTE | 2017-02-10 12:41 | Infectious Diseases Prog Note ---
Assessment/Plan Assessment/Plan Assessment: -Cough/sputum production- possible URI vs bronchitis, no PNA on CXR- -CXR: no acute disease, repeat cxr 02/10 still with no acute process -sp cx: normal connor -Flu neg -Afebrile/no leukocytosis -Tropinenmia -Lactic acidosis, mild- resolved -recent Probable P. mirabilis UTI s/p rx 01/21 u/a WBC 15-20, nit neg, leuk +3; ucx 10-20K P mirabilis (S. Ancef, I Cipro/levo) -recent COnS 04/22 bacteremia- contaminant -Bcx 01/21 04/22 ConS, Bcx 01/25neg x4 -Pressure heel ulcer,with prior hx of OM; healing, no signs of infection -heel xray 01/25: Abnormal appearance of the posterior calcaneus which is either been resected or chronically eroded. -Dm2 -CVA -Dysphagia Plan: -Continue PO Azithromycin #3 for bronchitis -s/p 2d Vanco/Cefepime 02/08 -f/u cx -Monitor CBC/BMP, temperatures -wound care Thank you for this consultation. Will continue to follow along with you. Discussed with RN and family at bedside. Subjective Allergies: Coded Allergies: No Known Allergies (Unverified , 01/21/17) Subjective afebrile VSS flu neg Objective Vital Signs Last 24 Hour Vital Signs Date Time Temp Pulse Resp B/P (MAP) Pulse Ox O2 Delivery O2 Flow Rate FiO2 02/10/17 11:41 97.9 94 20 149/95 93 Room Air 02/10/17 08:50 89 129/77 02/10/17 08:50 89 129/77 02/10/17 07:59 98.2 89 21 129/77 92 Room Air 02/10/17 06:58 93 Room Air 21 02/10/17 06:56 Room Air 02/10/17 04:00 97.4 91 18 140/81 95 Room Air 02/10/17 00:00 97.9 81 20 128/71 95 Room Air 02/09/17 21:04 Room Air 02/09/17 21:03 95 Room Air 21 02/09/17 20:42 92 128/67 02/09/17 20:00 98.1 86 20 124/69 97 Room Air 02/09/17 16:00 97.9 91 18 121/71 96 Room Air Height (Feet): 6 Height (Inches): 1.00 Weight (Pounds): 178 Objective General Appearance: resting comfortably in bed HEENT: atraumatic, bilateral eye PERRL, dry mucus membranes Neck: supple Respiratory: crackles - diffusely Cardiovascular : regular rate, rhythm, no edema Gastrointestinal: non tender, soft Genitourinary: no CVA tenderness Musculoskeletal: other - Patient has large previous CVA significant deficits Neurologic: responsive - To verbal stimuli however patient not able to speak, not able to follow commands Skin: other - Ulcers and heel breakdown Microbiology Date/Time Source Procedure Growth Status 02/07/17 15:30 Blood Blood Culture - Preliminary NO GROWTH AFTER 48 HOURS Resulted 02/07/17 15:15 Blood Blood Culture - Preliminary NO GROWTH AFTER 48 HOURS Resulted 02/08/17 18:00 Nasal Nares Influenza Types A,B Antigen (GUERDA) - Final Complete 02/08/17 13:00 Sputum Gram Stain - Final Complete 02/08/17 13:00 Sputum Sputum Culture - Final NORMAL UPPER RESPIRATORY CONNOR PRESENT Complete 02/07/17 18:40 Nasal Nares MRSA Culture - Final NO METHICILLIN RESISTANT STAPH AUREUS... Complete 02/07/17 18:40 Rectum VRE Culture - Final Enterococcus Faecalis - Vre Complete Laboratory Tests Test 02/09/17 18:15 02/10/17 07:35 Troponin I 0.069 ng/mL (0.000-0.056) White Blood Count 8.2 K/UL (4.8-10.8) Red Blood Count 3.91 M/UL (4.70-6.10) L Hemoglobin 11.1 G/DL (14.2-18.0) L Hematocrit 34.0 % (42.0-52.0) L Mean Corpuscular Volume 87 FL (80-99) Mean Corpuscular Hemoglobin 28.5 PG (27.0-31.0) Mean Corpuscular Hemoglobin Concent 32.7 G/DL (32.0-36.0) Red Cell Distribution Width 13.2 % (11.6-14.8) Platelet Count 405 K/UL (150-450) Mean Platelet Volume 5.7 FL (6.5-10.1) L Neutrophils (%) (Auto) 50.2 % (45.0-75.0) Lymphocytes (%) (Auto) 33.1 % (20.0-45.0) Monocytes (%) (Auto) 12.1 % (1.0-10.0) H Eosinophils (%) (Auto) 3.4 % (0.0-3.0) H Basophils (%) (Auto) 1.3 % (0.0-2.0) Sodium Level 141 MMOL/L (136-145) Potassium Level 3.1 MMOL/L (3.5-5.1) L Chloride Level 104 MMOL/L (98-107) Carbon Dioxide Level 29 MMOL/L (21-32) Anion Gap 8 mmol/L (5-15) Blood Urea Nitrogen 17 mg/dL (7-18) Creatinine 0.8 MG/DL (0.55-1.30) Estimat Glomerular Filtration Rate > 60 mL/min (>60) Glucose Level 199 MG/DL (74-106) H Calcium Level 8.9 MG/DL (8.5-10.1) Current Medications Medications (Trade) Dose Ordered Sig/Clint Route PRN Reason Start Time Stop Time Status Last Admin Dose Admin Acetaminophen (Tylenol) 650 mg Q4H PRN ORAL T>100.5 02/09/17 16:00 03/09/17 15:59 Al Hydroxide/Mg Hydroxide (Mylanta II) 30 ml Q6H PRN ORAL dyspepsia 02/09/17 16:00 03/09/17 15:59 Albuterol/ Ipratropium (DuoNeb 0.5-3(2.5)mg/3ml) 3 ml Q4H PRN HHN Shortness of Breath 02/09/17 16:00 02/12/17 15:59 Amlodipine Besylate (Norvasc) 5 mg DAILY ORAL 02/10/17 09:00 03/10/17 08:59 02/10/17 08:50 Azithromycin (Zithromax) 250 mg DAILY@1600 ORAL 02/09/17 16:00 02/16/17 15:59 02/09/17 16:35 Carvedilol (Coreg) 3.125 mg EVERY 12 HOURS ORAL 02/09/17 21:00 03/09/17 20:59 02/10/17 08:50 Dextrose (Dextrose 50%) STAT PRN IV Hypoglycemia 02/09/17 16:00 03/09/17 15:59 Heparin Sodium (Porcine) (Heparin 5000 units/ml) 5,000 units EVERY 12 HOURS SUBQ 02/09/17 21:00 03/09/17 20:59 02/10/17 08:51 Insulin Aspart (NovoLOG) BEFORE MEALS AND HS SUBQ 02/09/17 17:30 03/09/17 17:29 02/10/17 12:04 Lorazepam (Ativan) 0.5 mg Q6H PRN ORAL For Anxiety 02/09/17 16:00 02/14/17 15:59 Nitroglycerin (Ntg) 0.4 mg Q5MIN X 3 DOSES PRN SL Prn Chest Pain 02/09/17 16:00 03/09/17 15:59 Ondansetron HCl (Zofran) 4 mg Q6H PRN IVP Nausea & Vomiting 02/09/17 16:00 03/09/17 15:59 Polyethylene Glycol (Miralax) 17 gm DAILYPRN PRN ORAL Constipation 02/09/17 16:00 03/09/17 15:59 Promethazine HCl/ Codeine (Phenergan with Codeine) 5 ml Q4H PRN ORAL For Cough 02/09/17 16:00 03/09/17 15:59 Sitagliptin Phosphate (Januvia) 50 mg DAILY ORAL 02/10/17 09:00 03/10/17 08:59 02/10/17 08:50 Tamsulosin HCl (Flomax) 0.4 mg BEDTIME ORAL 02/09/17 21:00 03/09/17 20:59 02/09/17 20:39 Temazepam (Restoril) 15 mg HSPRN PRN ORAL Insomnia 02/09/17 21:00 02/14/17 20:59 Araceli Mays M.D. Feb 10, 2017 12:41
--- NOTE | 2017-02-10 15:14 | Cardiology Report ---
APPROVED REPORT EKG Measurement Heart [id number] Normal sinus rhythm Low voltage QRS Inferior infarct, age undetermined Abnormal ECG
--- NOTE | 2017-02-10 15:22 | Pulmonology Progress Note ---
Assessment/Plan Problems: (1) Bronchitis (2) Non-ST elevation (NSTEMI) myocardial infarction (3) Persistent cough (4) At high risk for aspiration (5) History of CVA (cerebrovascular accident) Assessment/Plan less cough feels better brother at bed site swallow study pending awaiting cardio reviewed, Dr. Burk agreed with med/surtg pt's brother refusing PEG placement dc planning, pts brother wants some place in [facility] med/surg Subjective ROS Limited/Unobtainable: No Constitutional: Reports: no symptoms HEENT: Repors: no symptoms Respiratory: Reports: no symptoms Allergies: Coded Allergies: No Known Allergies (Unverified , 01/21/17) Objective Last 24 Hour Vital Signs Date Time Temp Pulse Resp B/P (MAP) Pulse Ox O2 Delivery O2 Flow Rate FiO2 02/10/17 11:41 97.9 94 20 149/95 93 Room Air 02/10/17 08:50 89 129/77 02/10/17 08:50 89 129/77 02/10/17 07:59 98.2 89 21 129/77 92 Room Air 02/10/17 06:58 93 Room Air 21 02/10/17 06:56 Room Air 02/10/17 04:00 97.4 91 18 140/81 95 Room Air 02/10/17 00:00 97.9 81 20 128/71 95 Room Air 02/09/17 21:04 Room Air 02/09/17 21:03 95 Room Air 21 02/09/17 20:42 92 128/67 02/09/17 20:00 98.1 86 20 124/69 97 Room Air 02/09/17 16:00 97.9 91 18 121/71 96 Room Air Intake and Output 02/10/17 02/11/17 19:00 07:00 Intake Total 240 ml Balance 240 ml Intake Oral 240 ml Objective swallow study done, pts brohter refusing PEG insertion Microbiology Date/Time Source Procedure Growth Status 02/07/17 15:30 Blood Blood Culture - Preliminary NO GROWTH AFTER 48 HOURS Resulted 02/08/17 18:00 Nasal Nares Influenza Types A,B Antigen (GUERDA) - Final Complete 02/08/17 13:00 Sputum Gram Stain - Final Complete 02/08/17 13:00 Sputum Sputum Culture - Final NORMAL UPPER RESPIRATORY TRINA PRESENT Complete 02/07/17 18:40 Nasal Nares MRSA Culture - Final NO METHICILLIN RESISTANT STAPH AUREUS... Complete 02/07/17 18:40 Rectum VRE Culture - Final Enterococcus Faecalis - Vre Complete Laboratory Tests 02/09/17 18:15: Troponin I 0.069H 02/10/17 07:35: White Blood Count 8.2, Red Blood Count 3.91L, Hemoglobin 11.1L, Hematocrit 34.0L , Mean Corpuscular Volume 87, Mean Corpuscular Hemoglobin 28.5, Mean Corpuscular Hemoglobin Concent 32.7, Red Cell Distribution Width 13.2, Platelet Count 405, Mean Platelet Volume 5.7L, Neutrophils (%) (Auto) 50.2, Lymphocytes ( %) (Auto) 33.1, Monocytes (%) (Auto) 12.1H, Eosinophils (%) (Auto) 3.4H, Basophils (%) (Auto) 1.3, Sodium Level 141, Potassium Level 3.1L, Chloride Level 104, Carbon Dioxide Level 29, Anion Gap 8, Blood Urea Nitrogen 17, Creatinine 0.8, Estimat Glomerular Filtration Rate > 60, Glucose Level 199H, Calcium Level 8.9 Current Medications Medications (Trade) Dose Ordered Sig/Clint Route PRN Reason Start Time Stop Time Status Last Admin Dose Admin Acetaminophen (Tylenol) 650 mg Q4H PRN ORAL T>100.5 02/09/17 16:00 03/09/17 15:59 Al Hydroxide/Mg Hydroxide (Mylanta II) 30 ml Q6H PRN ORAL dyspepsia 02/09/17 16:00 03/09/17 15:59 Albuterol/ Ipratropium (DuoNeb 0.5-3(2.5)mg/3ml) 3 ml Q4H PRN HHN Shortness of Breath 02/09/17 16:00 02/12/17 15:59 Amlodipine Besylate (Norvasc) 5 mg DAILY ORAL 02/10/17 09:00 03/10/17 08:59 02/10/17 08:50 Azithromycin (Zithromax) 250 mg DAILY@1600 ORAL 02/09/17 16:00 02/16/17 15:59 02/09/17 16:35 Carvedilol (Coreg) 3.125 mg EVERY 12 HOURS ORAL 02/09/17 21:00 03/09/17 20:59 02/10/17 08:50 Dextrose (Dextrose 50%) STAT PRN IV Hypoglycemia 02/09/17 16:00 03/09/17 15:59 Heparin Sodium (Porcine) (Heparin 5000 units/ml) 5,000 units EVERY 12 HOURS SUBQ 02/09/17 21:00 03/09/17 20:59 02/10/17 08:51 Insulin Aspart (NovoLOG) BEFORE MEALS AND HS SUBQ 02/09/17 17:30 03/09/17 17:29 02/10/17 12:04 Lorazepam (Ativan) 0.5 mg Q6H PRN ORAL For Anxiety 02/09/17 16:00 02/14/17 15:59 Nitroglycerin (Ntg) 0.4 mg Q5MIN X 3 DOSES PRN SL Prn Chest Pain 02/09/17 16:00 03/09/17 15:59 Ondansetron HCl (Zofran) 4 mg Q6H PRN IVP Nausea & Vomiting 02/09/17 16:00 03/09/17 15:59 Polyethylene Glycol (Miralax) 17 gm DAILYPRN PRN ORAL Constipation 02/09/17 16:00 03/09/17 15:59 Promethazine HCl/ Codeine (Phenergan with Codeine) 5 ml Q4H PRN ORAL For Cough 02/09/17 16:00 03/09/17 15:59 Sitagliptin Phosphate (Januvia) 50 mg DAILY ORAL 02/10/17 09:00 03/10/17 08:59 02/10/17 08:50 Tamsulosin HCl (Flomax) 0.4 mg BEDTIME ORAL 02/09/17 21:00 03/09/17 20:59 02/09/17 20:39 Temazepam (Restoril) 15 mg HSPRN PRN ORAL Insomnia 02/09/17 21:00 02/14/17 20:59 JM ALLISON Feb 10, 2017 15:22
[2017-02-10 16:00] VITALS: BP 129/77
[2017-02-10] MEDS: Azithromycin 250mg tab ORAL SCH (17:07)
[2017-02-10] MEDS: Tamsulosin 0.4mg cap ORAL SCH (20:16)
[2017-02-10] MEDS: Promethazine/Codeine 5ml UD ORAL PRN (20:16)
--- NOTE | 2017-02-10 20:26 | Cardiology Progress Note ---
Assessment/Plan Assessment/Plan 1. Respiratory insufficiency, aspiration risk 2. minimal abnormal cardiac enzymes non significant / diagnostic levels 3. History of cerebrovascular accident. 4. Diabetes mellitus. 5. Hypertension. echo normal wall motion trop abn with out any peak and michelle nto reach levels to be diagnostic pattern is not suggestive of myonecrosis Subjective ROS Limited/Unobtainable: Yes Objective Last 24 Hour Vital Signs Date Time Temp Pulse Resp B/P (MAP) Pulse Ox O2 Delivery O2 Flow Rate FiO2 02/10/17 20:17 88 158/88 02/10/17 16:00 98.2 93 20 129/77 92 Room Air 02/10/17 11:41 97.9 94 20 149/95 93 Room Air 02/10/17 08:50 89 129/77 02/10/17 08:50 89 129/77 02/10/17 07:59 98.2 89 21 129/77 92 Room Air 02/10/17 06:58 93 Room Air 21 02/10/17 06:56 Room Air 02/10/17 04:00 97.4 91 18 140/81 95 Room Air 02/10/17 00:00 97.9 81 20 128/71 95 Room Air 02/09/17 21:04 Room Air 02/09/17 21:03 95 Room Air 21 02/09/17 20:42 92 128/67 General Appearance: alert Neck: supple Cardiovascular: normal rate, regular rhythm Respiratory/Chest: lungs clear Abdomen: normal bowel sounds, non tender, soft Extremities: no swelling Intake and Output 02/10/17 02/11/17 19:00 07:00 Intake Total 440 ml Output Total 400 ml Balance 40 ml Intake Oral 440 ml Output Urine Total 400 ml Laboratory Tests Test 02/10/17 07:35 White Blood Count 8.2 K/UL (4.8-10.8) Red Blood Count 3.91 M/UL (4.70-6.10) L Hemoglobin 11.1 G/DL (14.2-18.0) L Hematocrit 34.0 % (42.0-52.0) L Mean Corpuscular Volume 87 FL (80-99) Mean Corpuscular Hemoglobin 28.5 PG (27.0-31.0) Mean Corpuscular Hemoglobin Concent 32.7 G/DL (32.0-36.0) Red Cell Distribution Width 13.2 % (11.6-14.8) Platelet Count 405 K/UL (150-450) Mean Platelet Volume 5.7 FL (6.5-10.1) L Neutrophils (%) (Auto) 50.2 % (45.0-75.0) Lymphocytes (%) (Auto) 33.1 % (20.0-45.0) Monocytes (%) (Auto) 12.1 % (1.0-10.0) H Eosinophils (%) (Auto) 3.4 % (0.0-3.0) H Basophils (%) (Auto) 1.3 % (0.0-2.0) Sodium Level 141 MMOL/L (136-145) Potassium Level 3.1 MMOL/L (3.5-5.1) L Chloride Level 104 MMOL/L (98-107) Carbon Dioxide Level 29 MMOL/L (21-32) Anion Gap 8 mmol/L (5-15) Blood Urea Nitrogen 17 mg/dL (7-18) Creatinine 0.8 MG/DL (0.55-1.30) Estimat Glomerular Filtration Rate > 60 mL/min (>60) Glucose Level 199 MG/DL (74-106) H Calcium Level 8.9 MG/DL (8.5-10.1) Microbiology Date/Time Source Procedure Growth Status 02/08/17 18:00 Nasal Nares Influenza Types A,B Antigen (GUERDA) - Final Complete 02/08/17 13:00 Sputum Gram Stain - Final Complete 02/08/17 13:00 Sputum Sputum Culture - Final NORMAL UPPER RESPIRATORY TRINA PRESENT Complete ANALISA DSOUZA Feb 10, 2017 20:25
[2017-02-10 20:47] VITALS: BP 158/88
[2017-02-11] VITALS: BP 147/77
[2017-02-11] MEDS: Promethazine/Codeine 5ml UD ORAL PRN ×2 (06:16→14:48)
[2017-02-11] MEDS: NovoLOG Insulin Flexpen SUBQ SCH ×3 (06:20→16:52)
[2017-02-11 08:15] VITALS: BP 125/70
[2017-02-11] MEDS: sitaGLIPtin 50mg tab ORAL SCH (09:11)
[2017-02-11] MEDS: Heparin 5000 units/ml inj SUBQ SCH (09:12)
[2017-02-11 12:00] VITALS: BP 130/75
--- NOTE | 2017-02-11 12:42 | Infectious Diseases Prog Note ---
Assessment/Plan Assessment/Plan Assessment: -Cough/sputum production- possible URI vs bronchitis, no PNA on CXR- -CXR: no acute disease, repeat cxr 02/10 still with no acute process -sp cx: normal connor -Flu neg -Afebrile/no leukocytosis -Tropinenmia -Lactic acidosis, mild- resolved -recent Probable P. mirabilis UTI s/p rx 01/21 u/a WBC 15-20, nit neg, leuk +3; ucx 10-20K P mirabilis (S. Ancef, I Cipro/levo) -recent COnS 04/22 bacteremia- contaminant -Bcx 01/21 04/22 ConS, Bcx 01/25neg x4 -Pressure heel ulcer,with prior hx of OM; healing, no signs of infection -heel xray 01/25: Abnormal appearance of the posterior calcaneus which is either been resected or chronically eroded. -Dm2 -CVA -Dysphagia Plan: -Ok to discharge on PO Azithromycin #4/ for bronchitis -s/p 2d Vanco/Cefepime 02/08 -f/u cx -Monitor CBC/BMP, temperatures -wound care Thank you for this consultation. Will continue to follow along with you. Discussed with RN and family at bedside. Subjective Allergies: Coded Allergies: No Known Allergies (Unverified , 01/21/17) Subjective afebrile VSS Objective Vital Signs Last 24 Hour Vital Signs Date Time Temp Pulse Resp B/P (MAP) Pulse Ox O2 Delivery O2 Flow Rate FiO2 02/11/17 09:11 90 125/70 02/11/17 09:11 90 125/70 02/11/17 08:15 98.2 90 20 125/70 96 Room Air 02/11/17 00:00 98.1 85 20 147/77 94 Room Air 02/10/17 20:47 98.0 88 24 158/88 95 Room Air 02/10/17 20:17 88 158/88 02/10/17 16:00 98.2 93 20 129/77 92 Room Air Height (Feet): 6 Height (Inches): 1.00 Weight (Pounds): 178 Objective General Appearance: resting comfortably in bed HEENT: atraumatic, bilateral eye PERRL, dry mucus membranes Neck: supple Respiratory: crackles - diffusely Cardiovascular : regular rate, rhythm, no edema Gastrointestinal: non tender, soft Genitourinary: no CVA tenderness Musculoskeletal: other - Patient has large previous CVA significant deficits Neurologic: responsive - To verbal stimuli however patient not able to speak, not able to follow commands Skin: other - Ulcers and heel breakdown Microbiology Date/Time Source Procedure Growth Status 02/08/17 18:00 Nasal Nares Influenza Types A,B Antigen (GUERDA) - Final Complete 02/08/17 13:00 Sputum Gram Stain - Final Complete 02/08/17 13:00 Sputum Sputum Culture - Final NORMAL UPPER RESPIRATORY CONNOR PRESENT Complete Current Medications Medications (Trade) Dose Ordered Sig/Clint Route PRN Reason Start Time Stop Time Status Last Admin Dose Admin Acetaminophen (Tylenol) 650 mg Q4H PRN ORAL T>100.5 02/09/17 16:00 03/09/17 15:59 Al Hydroxide/Mg Hydroxide (Mylanta II) 30 ml Q6H PRN ORAL dyspepsia 02/09/17 16:00 03/09/17 15:59 Albuterol/ Ipratropium (DuoNeb 0.5-3(2.5)mg/3ml) 3 ml Q4H PRN HHN Shortness of Breath 02/09/17 16:00 02/12/17 15:59 Amlodipine Besylate (Norvasc) 5 mg DAILY ORAL 02/10/17 09:00 03/10/17 08:59 02/11/17 09:11 Azithromycin (Zithromax) 250 mg DAILY@1600 ORAL 02/09/17 16:00 02/12/17 23:59 02/10/17 17:07 Carvedilol (Coreg) 3.125 mg EVERY 12 HOURS ORAL 02/09/17 21:00 03/09/17 20:59 02/11/17 09:11 Dextrose (Dextrose 50%) STAT PRN IV Hypoglycemia 02/09/17 16:00 03/09/17 15:59 Heparin Sodium (Porcine) (Heparin 5000 units/ml) 5,000 units EVERY 12 HOURS SUBQ 02/09/17 21:00 03/09/17 20:59 02/11/17 09:12 Insulin Aspart (NovoLOG) BEFORE MEALS AND HS SUBQ 02/09/17 17:30 03/09/17 17:29 02/11/17 06:20 Lorazepam (Ativan) 0.5 mg Q6H PRN ORAL For Anxiety 02/09/17 16:00 02/14/17 15:59 Nitroglycerin (Ntg) 0.4 mg Q5MIN X 3 DOSES PRN SL Prn Chest Pain 02/09/17 16:00 03/09/17 15:59 Ondansetron HCl (Zofran) 4 mg Q6H PRN IVP Nausea & Vomiting 02/09/17 16:00 03/09/17 15:59 Polyethylene Glycol (Miralax) 17 gm DAILYPRN PRN ORAL Constipation 02/09/17 16:00 03/09/17 15:59 Promethazine HCl/ Codeine (Phenergan with Codeine) 5 ml Q4H PRN ORAL For Cough 02/09/17 16:00 03/09/17 15:59 02/11/17 06:16 Sitagliptin Phosphate (Januvia) 50 mg DAILY ORAL 02/10/17 09:00 03/10/17 08:59 02/11/17 09:11 Tamsulosin HCl (Flomax) 0.4 mg BEDTIME ORAL 02/09/17 21:00 03/09/17 20:59 02/10/17 20:16 Temazepam (Restoril) 15 mg HSPRN PRN ORAL Insomnia 02/09/17 21:00 02/14/17 20:59 Araceli Mays M.D. Feb 11, 2017 12:42
[2017-02-11] MEDS: Azithromycin 250mg tab ORAL SCH (16:19)
--- NOTE | 2017-02-11 16:39 | Pulmonology Progress Note ---
Assessment/Plan Problems: (1) Bronchitis (2) Non-ST elevation (NSTEMI) myocardial infarction (3) Persistent cough (4) At high risk for aspiration (5) History of CVA (cerebrovascular accident) Assessment/Plan less cough feels better brother at bed site swallow study done the son doesn't want to follow the recommendations dc planning, pts brother wants some place in [facility] Subjective ROS Limited/Unobtainable: No Constitutional: Reports: no symptoms HEENT: Repors: no symptoms Cardiovascular: Reports: no symptoms Gastrointestinal/Abdominal: Reports: no symptoms Allergies: Coded Allergies: No Known Allergies (Unverified , 01/21/17) Objective Last 24 Hour Vital Signs Date Time Temp Pulse Resp B/P (MAP) Pulse Ox O2 Delivery O2 Flow Rate FiO2 02/11/17 12:00 98.2 20 130/75 96 Room Air 02/11/17 09:11 90 125/70 02/11/17 09:11 90 125/70 02/11/17 08:15 98.2 90 20 125/70 96 Room Air 02/11/17 00:00 98.1 85 20 147/77 94 Room Air 02/10/17 20:47 98.0 88 24 158/88 95 Room Air 02/10/17 20:17 88 158/88 Intake and Output 02/11/17 02/12/17 19:00 07:00 Intake Total 240 ml Balance 240 ml Intake Oral 240 ml Objective swallow study done, pts brohter refusing PEG insertion General Appearance: WD/WN HEENT: normocephalic, atraumatic Respiratory/Chest: chest wall non-tender, lungs clear Cardiovascular: normal peripheral pulses, normal rate Abdomen: normal bowel sounds, no organomegaly Extremities: no cyanosis, no clubbing Skin: no lesions Microbiology Date/Time Source Procedure Growth Status 02/08/17 18:00 Nasal Nares Influenza Types A,B Antigen (GUERDA) - Final Complete Current Medications Medications (Trade) Dose Ordered Sig/Clint Route PRN Reason Start Time Stop Time Status Last Admin Dose Admin Acetaminophen (Tylenol) 650 mg Q4H PRN ORAL T>100.5 02/09/17 16:00 03/09/17 15:59 Al Hydroxide/Mg Hydroxide (Mylanta II) 30 ml Q6H PRN ORAL dyspepsia 02/09/17 16:00 03/09/17 15:59 Albuterol/ Ipratropium (DuoNeb 0.5-3(2.5)mg/3ml) 3 ml Q4H PRN HHN Shortness of Breath 02/09/17 16:00 02/12/17 15:59 Amlodipine Besylate (Norvasc) 5 mg DAILY ORAL 02/10/17 09:00 03/10/17 08:59 02/11/17 09:11 Azithromycin (Zithromax) 250 mg DAILY@1600 ORAL 02/09/17 16:00 02/12/17 23:59 02/11/17 16:19 Carvedilol (Coreg) 3.125 mg EVERY 12 HOURS ORAL 02/09/17 21:00 03/09/17 20:59 02/11/17 09:11 Dextrose (Dextrose 50%) STAT PRN IV Hypoglycemia 02/09/17 16:00 03/09/17 15:59 Heparin Sodium (Porcine) (Heparin 5000 units/ml) 5,000 units EVERY 12 HOURS SUBQ 02/09/17 21:00 03/09/17 20:59 02/11/17 09:12 Insulin Aspart (NovoLOG) BEFORE MEALS AND HS SUBQ 02/09/17 17:30 03/09/17 17:29 02/11/17 13:01 Lorazepam (Ativan) 0.5 mg Q6H PRN ORAL For Anxiety 02/09/17 16:00 02/14/17 15:59 Nitroglycerin (Ntg) 0.4 mg Q5MIN X 3 DOSES PRN SL Prn Chest Pain 02/09/17 16:00 03/09/17 15:59 Ondansetron HCl (Zofran) 4 mg Q6H PRN IVP Nausea & Vomiting 02/09/17 16:00 03/09/17 15:59 Polyethylene Glycol (Miralax) 17 gm DAILYPRN PRN ORAL Constipation 02/09/17 16:00 03/09/17 15:59 Promethazine HCl/ Codeine (Phenergan with Codeine) 5 ml Q4H PRN ORAL For Cough 02/09/17 16:00 03/09/17 15:59 02/11/17 14:48 Sitagliptin Phosphate (Januvia) 50 mg DAILY ORAL 02/10/17 09:00 03/10/17 08:59 02/11/17 09:11 Tamsulosin HCl (Flomax) 0.4 mg BEDTIME ORAL 02/09/17 21:00 03/09/17 20:59 02/10/17 20:16 Temazepam (Restoril) 15 mg HSPRN PRN ORAL Insomnia 02/09/17 21:00 02/14/17 20:59 JM ALLISON Feb 11, 2017 16:39
--- NOTE | 2017-02-12 10:36 | Discharge Summary ---
Discharge Summary Hospital Course Date of Admission Feb 07, 2017 at 20:10 Date of Discharge Feb 11, 2017 at 17:32 Admitting Diagnosis dyspnea HPI Pranay Hunter is a 71 year old male who was admitted on Feb 07, 2017 at 20:10 for Dyspnea Hospital Course [id number] Discharge Discharge Disposition Patient was discharged to SNF/Subacute Facility(03) Discharge Diagnoses: Tanja Gonzalez NP Feb 12, 2017 10:36
--- NOTE | 2017-02-13 06:46 | Discharge Summary 2 SIG ---
DATE OF ADMISSION: 02/07/2017 DATE OF DISCHARGE: 02/11/2017 CONSULTANTS: 1. Hebert Jean M.D. 2. Araceli Mays M.D. 3. Miguelangel Burk M.D. BRIEF HOSPITAL COURSE: The patient is a 71-year-old male, presented to [facility] due to increased cough and congestion. The patient was discharged less than 2 weeks ago after admission for pneumonia. He is a resident of an extended care facility where he has been in precarious condition over the last two weeks. He is known to have several chronic medical syndromes and had been doing hemodynamically stable with persistent cough and inability to complete the meal for last several weeks. Following his discharge, he had been having daily cough during meals. On the day of admission, he had hypertension, tachycardia, hypoxia and fever. He was transferred by paramedics to [facility] ER where he was again diagnosed with aspiration pneumonia. On evaluation at ED, troponin was positive. He was admitted to telemetry for further evaluation. Initial chest x-ray was negative. He was given initially IV vancomycin and cefepime. Influenza testing done was negative. Antibiotic was switched to azithromycin p.o. for possible bronchitis. His EKG was in normal sinus rhythm with normal QRS axis and low voltage criteria. Echocardiogram showed global hypokinesis, ejection fraction of 45% to 50% with moderate left ventricular hypertrophy and mild diastolic dysfunction. Troponin was elevated, however, without any peak or michelle. The patient does not have any chest pain. The abnormality in the cardiac enzymes are minimal in nature and did not reach the level for myonecrosis, per WHO criteria. His blood culture was negative. Sputum culture showed normal upper respiratory connor. Venous duplex of lower extremity was negative for DVT. He came in with a right heel deep tissue injury with no signs of infection. He was given wound care. He was eventually discharged back to SNF. FINAL DIAGNOSES: 1. Acute bronchitis. 2. Probable aspiration pneumonia. 3. High risk of aspiration. 4. Old cerebrovascular accident. 5. Diabetes mellitus. 6. Hypertension. 7. Lactic acidosis, mild. 8. Right heel deep tissue injury, present on admission. DISPOSITION: The patient was discharged back to [facility]. DISCHARGE MEDICATIONS: Refer to medication list. Epi Nicholas M.D. I have been assigned to dictate discharge summary on this account and I was not involved in the patient's management. Tanja Gonzalez N.P. DR: LIZBETH JOB#: [id number] CC: ELIZ
== END 2017-02-11 17:32 | DRG 177 ==
LOC: EDBD 17:00 → EMR 17:29 → ENRESERV 19:51 → EDBEDREQ 19:55 → 2E 20:10 → OBSVTOIN 20:10 → 4E 02-09 15:00
DX: J69.0 Pneumonitis due to inhalation of food and vomit (principal); I21.4 Non-ST elevation (NSTEMI) myocardial infarction; E87.2 Acidosis; J44.9 Chronic obstructive pulmonary disease, unspecified; L89.610 Pressure ulcer of right heel, unstageable; R13.10 Dysphagia, unspecified; E11.9 Type 2 diabetes mellitus without complications; Z86.73 Personal history of transient ischemic attack (TIA), and cerebral infarction without residual deficits; I10 Essential (primary) hypertension; N40.0 Benign prostatic hyperplasia without lower urinary tract symptoms; F41.1 Generalized anxiety disorder; I25.2 Old myocardial infarction; F31.9 Bipolar disorder, unspecified; Z86.14 Personal history of Methicillin resistant Staphylococcus aureus infection; Z79.4 Long term (current) use of insulin; E78.5 Hyperlipidemia, unspecified; I73.9 Peripheral vascular disease, unspecified; Z87.891 Personal history of nicotine dependence; J40 Bronchitis, not specified as acute or chronic
CPT/HCPCS: 36415; 36600; 71010; 74230; 80048; 80053; 80069; 82550; 82553; 82803; 82962; 83605; 83690; 83880; 84484; 85025; 86710; 87040; 87070; 87081; 87205; 93005; 93306; 93970; 94640; 94760; 99285; J1815; J7620

== ENCOUNTER 2017-05-04 23:25 | Inpatient (IN) | payer MEDICARE, MEDICAID ==
[~2017-05-04] VITALS: Ht 185.4 cm; Wt 80.7 kg
[2017-05-04 23:25] VITALS: BP 150/94
[~2017-05-04 23:25] MED LIST changes: +HEPARIN SO5000 UNIT2 SUBQ; +JANUVIA25 MG ORAL; +NOVOLOG100 UNIT/3 SUBQ; +PHENERGAN SUPP25 MG RECTAL
--- NOTE | 2017-05-04 23:40 | Emergency Room Report ---
History of Present Illness General Chief Complaint: Abnormal Labs Source: Medical Record, EMS Present Illness HPI This is a 71-year-old gentleman with a history dementia at baseline confusion. He also a history of stroke with right-sided paraplegia. He present with chief complaint of malaise, altered mental status and pneumonia on the chest x-ray. Onset for last couple days. No fever or chills. No nausea no vomiting. Does have a cough. History is from detention note. History limited in this patient because of his condition. Allergies: Coded Allergies: No Known Allergies (Unverified , 01/21/17) Patient History Past Medical History: see triage record, old chart reviewed Past Surgical History: other Pertinent Family History: none Social History: Denies: smoking Immunizations: other Reviewed Nursing Documentation: PMH: Agreed, PSxH: Agreed Nursing Documentation-PMH Hx Hypertension: Yes Hx COPD: Yes Hx Diabetes: Yes Hx Cancer: No Hx Gastrointestinal Problems: Yes - Peptic ulcer Hx Neurological Problems: Yes - Dementia Hx Cerebrovascular Accident: Yes Hx Weakness: Yes Hx Fatigue: Yes Review of Systems Constitutional: Reports: weakness Eye: Denies: eye pain, blurred vision ENT: Denies: ear pain, nose congestion, throat swelling Respiratory: Reports: cough Cardiovascular: Denies: chest pain, palpitations Gastrointestinal: Denies: abdominal pain, diarrhea, nausea, vomiting Musculoskeletal: Denies: back pain, joint pain Skin: Denies: rash Neurological: Denies: headache, numbness Endocrine: Denies: increased thirst, increased urine Hematologic/Lymphatic: Denies: easy bruising All Other Systems: negative except mentioned in HPI Physical Exam Vital Signs Date Time Temp Pulse Resp B/P (MAP) Pulse Ox O2 Delivery O2 Flow Rate FiO2 05/04/17 23:20 98.2 96 18 150/94 97 Nasal Cannula 3.0 vitals with hypoxia Sp02 EP Interpretation: abnormal General Appearance: mild distress Head: normocephalic, atraumatic Eyes: bilateral eye PERRL, bilateral eye EOMI ENT: hearing grossly normal, dry mucus membranes Neck: full range of motion, supple, no meningismus Respiratory: chest non-tender, respiratory distress, accessory muscle use, crackles, rhonchi Cardiovascular #1: regular rate, rhythm, no murmur Gastrointestinal: normal bowel sounds, non tender, no mass, no organomegaly, no bruit, non-distended Musculoskeletal: back normal Neurologic: alert, other - Right-sided weakness Psychiatric: mood/affect normal Skin: warm/dry Procedures Critical Care Time Critical Care Time Critical care is mandated in this patient who presented with sepsis from p. Patient require my urgent intervention to attenuate the risks of metabolic collaps which may lead to cardiovascular collapse and . Critical care time is 35 minutes excluding any reportable procedure. Critical care time included evaluation, multiple reevaluation, looking at old charts, interpreting laboratory and diagnostic data, discussing case with patient and family and consultants, and charting. Medical Decision Making Diagnostic Impression: Primary Impression: Pneumonia Qualified Codes: J18.9 - Pneumonia, unspecified organism Additional Impressions: Proteinuria Qualified Codes: R80.9 - Proteinuria, unspecified Non-ST elevation (NSTEMI) myocardial infarction Encephalopathy acute Sepsis Qualified Codes: A41.9 - Sepsis, unspecified organism ER Course Patient presents with sepsis from pneumonia. High risk for aspiration. I started him on antibiotics plus Flagyl also. He has positive troponin which may be secondary to the man ischemia. Patient is improving after IV fluid antibiotics. Will admit for IV antibiotics and further workup. Sepsis reevaluation Time: 1244am Vitals: Temperature 98, heart rate 93, pulse ox 100%t on 2 L, blood pressure 132 /60 Mental status: More alert Cardiovascular: Regular in rhythm Lungs: Clear, good air movement Abdomen: Soft Extremity no edema Skin no mottling Lab Results Impression labs with leukocytosis and elevated troponin EKG Diagnostic Results Rate: normal Rhythm: NSR ST Segments: other - NSST changes Rhythm Strip Diag. Results Rhythm Strip Time: 23:40 EP Interpretation: yes Rate: 96 Rhythm: NSR, no PVC's, no ectopy Chest X-Ray Diagnostic Results Chest X-Ray Diagnostic Results : Chest X-Ray Ordered: Yes # of Views/Limited/Complete: 1 View Indication: Shortness of Breath EP Interpretation: Yes Interpretation: no consolidation, no effusion, no pneumothorax, other - Atelectasis the bases Impression: Other - Atelectasis Electronically Signed by: Armin Vivar MD Last Vital Signs Date Time Temp Pulse Resp B/P (MAP) Pulse Ox O2 Delivery O2 Flow Rate FiO2 05/04/17 23:20 98.2 96 18 150/94 97 Nasal Cannula 3.0 Status: improved Disposition: ADMITTED INPATIENT Condition: Serious ARMIN VIVAR M.D. May 04, 2017 23:40
[2017-05-05] VITALS (7 sets, daily range): BP systolic 127–144; BP diastolic 63–84
[2017-05-05] LABS: BASOPHILS % (AUTO) 0.7 % (0.0-2.0); EOSINOPHILS % (AUTO) 2.8 % (0.0-3.0); HEMATOCRIT 35.8 % (42.0-52.0); HEMOGLOBIN 11.8 G/DL (14.2-18.0); LYMPHOCYTES % (AUTO) 29.4 % (20.0-45.0); MEAN CORPUSCULAR VOLUME 87 FL (80-99); PLATELET COUNT 404 K/UL (150-450); RED BLOOD COUNT 4.14 M/UL (4.70-6.10); RED CELL DISTRIBUTION WIDTH 11.9 % (11.6-14.8); WHITE BLOOD COUNT 13.2 K/UL (4.8-10.8)
[2017-05-05] MEDS ORDERED: Zosyn 4.5gm inj ONE ×2 (00:05→06:15)
[2017-05-05] MEDS: Piperacillin/Tazobactam 4.5 GM in NS 110 ML IV SCH ×4 (00:10→16:30)
[2017-05-05 00:11] LABS: ANION GAP 6 mmol/L (5-15); BLOOD UREA NITROGEN 15 mg/dL (7-18); CALCIUM 8.9 MG/DL (8.5-10.1); CARBON DIOXIDE 31 MMOL/L (21-32); CHLORIDE 99 MMOL/L (98-107); POTASSIUM 4.3 MMOL/L (3.5-5.1); SODIUM 136 MMOL/L (136-145)
[2017-05-05 00:26] LABS: ALANINE AMINOTRANSFERASE 23 U/L (12-78); ALBUMIN 3.2 G/DL (3.4-5.0); ALBUMIN/GLOBULIN RATIO 0.7 (1.0-2.7); ALKALINE PHOSPHATASE 129 U/L (46-116); ASPARTATE AMINO TRANSFERASE 13 U/L (15-37); BILIRUBIN,TOTAL 0.2 MG/DL (0.2-1.0); CKMB 5.8 NG/ML (0.0-3.6); CREATINE KINASE 331 U/L (26-308)
[2017-05-05 00:29] LABS: APPEARANCE,URINE CLEAR; BILIRUBIN, URINE NEGATIVE (NEGATIVE); COLOR,URINE PALE YELLOW; GLUCOSE, URINE (UA) 1+ (NEGATIVE); KETONES,URINE NEGATIVE (NEGATIVE); LEUKOCYTE ESTERASE ,URINE NEGATIVE (NEGATIVE); NITRITE,URINE NEGATIVE (NEGATIVE); PH,URINE 5 (4.5-8.0); PROTEIN,URINE 3+ (NEGATIVE); UROBILINOGEN,URINE NORMAL MG/DL (0.0-1.0)
[2017-05-05] MEDS ORDERED: Aspirin Baby 81mg ORAL ONE (00:30)
[2017-05-05] MEDS ORDERED: ASCORBIC ACID500 MG ORAL (01:09)
[2017-05-05] MEDS ORDERED: HEPARIN SO5000 UNIT2 SUBQ (01:13)
[2017-05-05] MEDS ORDERED: ZINC SULFATE220 M1 ORAL (01:21)
[2017-05-05] MEDS ORDERED: CRANBERRY450 M4 PO (01:21)
--- NOTE | 2017-05-05 11:16 | Diagnostic Imaging Report ---
Indication: Dyspnea Comparison: 02/10/2017 A single view chest radiograph was obtained. Findings: No definite infiltrate or pulmonary vascular congestion identified. The heart is enlarged. The aorta is mildly enlarged consistent with atherosclerotic vascular disease. The bones are osteopenic. Impression: No acute disease
--- NOTE | 2017-05-05 14:44 | Consultation ---
History of Present Illness General Date patient seen: May 05, 2017 Chief Complaint: Abnormal Labs Reason for Consultation: dyspnea Present Illness HPI 71-year-old gentleman with a history of dementia, stroke with right-sided paraplegia, [facility] resident presented with chief complaint of malaise, altered mental status and pneumonia on the chest x-ray. Onset for last couple days. No fever or chills. No nausea no vomiting. Does have a cough. Pt can' t give any history and all information is obtained from the chart. Allergies: Coded Allergies: No Known Allergies (Unverified , 01/21/17) Medication History Scheduled Amlodipine Besylate (Norvasc), 5 MG ORAL DAILY, (Reported) Ascorbic Acid* (Vitamin C*), 250 MG ORAL DAILY, (Reported) Ascorbic Acid* (Ascorbic Acid*), 500 MG ORAL DAILY, (Reported) Atorvastatin Calcium* (Lipitor*), 40 MG ORAL BEDTIME, (Reported) Carboxymethylcellulose Sodium (Lubricant Eye), 1 DRP OP THREE TIMES A DAY, ( Reported) Carvedilol (Coreg), 3.125 MG ORAL EVERY 12 HOURS, (Reported) Cholecalciferol (Vitamin D3)* (Vitamin D*), 2,000 UNITS ORAL DAILY, (Reported) Cranberry Fruit Concentrate (Cranberry), 450 MG PO DAILY, (Reported) Docusate Sodium* (Colace*), 100 MG ORAL DAILY, (Reported) Heparin Sod (Porcine) (Heparin Sodium*), 5,000 UNITS SUBQ EVERY 12 HOURS, ( Reported) Heparin Sod (Porcine) (Heparin Sodium*), 5,000 UNITS SUBQ BEDTIME, (Reported) Ipratropium/Albuterol Sulfate (DuoNeb 0.5-3(2.5)mg/3ml), 3 ML HHN EVERY 4 HOURS, (Reported) Lactobacillus Acidophilus (Acidophilus), 1 EACH PO THREE TIMES A DAY, (Reported) Lactulose (Lactulose*), 15 ML ORAL BID, (Reported) Mag Hydrox/Al Hydrox/Simeth (Alum-Mag Hydroxide-Simeth Liq), 30 ML PO EVERY 4 HOURS, (Reported) Magnesium Hydroxide* (Milk Of Magnesia*), 30 ML ORAL DAILY, (Reported) Magnesium Oxide (Mag-Oxide), 400 MG PO BID, (Reported) Metformin Hcl* (Metformin Hcl*), 500 MG ORAL TWICE A DAY, (Reported) Multivitamins* (Multivitamins*), 1 TAB ORAL DAILY, (Reported) Sennosides (Senna), 2 TAB PO BEDTIME, (Reported) Sitagliptin* (Januvia*), 50 MG ORAL DAILY, (Reported) Tamsulosin Hcl (Tamsulosin Hcl*), 0.4 MG ORAL BEDTIME, (Reported) Zinc Sulfate (Zinc Sulfate*), 220 MG ORAL DAILY, (Reported) Scheduled PRN Acetaminophen* (Acetaminophen 325MG Tablet*), 650 MG ORAL Q4H PRN for MILD PAIN, (Reported) Bisacodyl (Dulcolax), 10 MG RC DAILY PRN for Constipation, (Reported) Lorazepam* (Ativan*), 0.5 MG ORAL EVERY 6 HOURS PRN for For Anxiety, (Reported) Promethazine HCl (Promethegan), 6.25 MG RECTAL Q6H PRN for Nausea & Vomiting, ( Reported) Temazepam* (Restoril*), 15 MG ORAL BEDTIME PRN for Insomnia, (Reported) Miscellaneous Medications Insulin Aspart* (Novolog*), 0 SUBQ, (Reported) Patient History Healthcare decision maker Resuscitation status Advanced Directive on File Past Medical/Surgical History Past Medical/Surgical History: (1) Limited mobility in bed (2) History of CVA (cerebrovascular accident) Review of Systems All Other Systems: negative except mentioned in HPI Physical Exam General Appearance: WD/WN Lines, tubes and drains: peripheral, central line HEENT: atraumatic, anicteric Neck: non-tender, normal alignment Respiratory/Chest: chest wall non-tender, lungs clear Cardiovascular/Chest: normal peripheral pulses, normal rate Abdomen: normal bowel sounds Last 24 Hour Vital Signs Date Time Temp Pulse Resp B/P (MAP) Pulse Ox O2 Delivery O2 Flow Rate FiO2 05/05/17 13:22 98.7 95 25 143/68 100 Nasal Cannula 2.0 05/05/17 12:56 98.7 95 143/68 100 Nasal Cannula 2.0 05/05/17 10:08 87 25 143/84 100 Nasal Cannula 2.0 05/05/17 07:56 84 18 132/71 100 Nasal Cannula 2.0 05/05/17 05:25 98.5 89 19 141/72 100 Nasal Cannula 3.0 05/05/17 03:25 98.2 83 21 127/66 100 Nasal Cannula 3.0 05/05/17 01:25 98.5 85 23 132/63 100 Nasal Cannula 3.0 05/04/17 23:25 98.2 89 18 150/94 97 Nasal Cannula 3.0 05/04/17 23:20 98.2 96 18 150/94 97 Nasal Cannula 3.0 Intake and Output 05/04/17 05/05/17 19:00 07:00 Intake Total 100 ml Output Total 300 ml Balance -200 ml Intake IV Total 100 ml Output Urine Total 300 ml Laboratory Tests Test 05/04/17 23:30 05/05/17 00:01 05/05/17 02:00 White Blood Count 13.2 K/UL (4.8-10.8) H Red Blood Count 4.14 M/UL (4.70-6.10) L Hemoglobin 11.8 G/DL (14.2-18.0) L Hematocrit 35.8 % (42.0-52.0) L Mean Corpuscular Volume 87 FL (80-99) Mean Corpuscular Hemoglobin 28.4 PG (27.0-31.0) Mean Corpuscular Hemoglobin Concent 32.8 G/DL (32.0-36.0) Red Cell Distribution Width 11.9 % (11.6-14.8) Platelet Count 404 K/UL (150-450) Mean Platelet Volume 5.5 FL (6.5-10.1) L Neutrophils (%) (Auto) 57.0 % (45.0-75.0) Lymphocytes (%) (Auto) 29.4 % (20.0-45.0) Monocytes (%) (Auto) 10.0 % (1.0-10.0) Eosinophils (%) (Auto) 2.8 % (0.0-3.0) Basophils (%) (Auto) 0.7 % (0.0-2.0) Prothrombin Time 10.5 SEC (9.30-11.50) Prothromb Time International Ratio 1.0 (0.9-1.1) Activated Partial Thromboplast Time 29 SEC (23-33) Sodium Level 136 MMOL/L (136-145) Potassium Level 4.3 MMOL/L (3.5-5.1) Chloride Level 99 MMOL/L (98-107) Carbon Dioxide Level 31 MMOL/L (21-32) Anion Gap 6 mmol/L (5-15) Blood Urea Nitrogen 15 mg/dL (7-18) Creatinine 1.0 MG/DL (0.55-1.30) Estimat Glomerular Filtration Rate > 60 mL/min (>60) Glucose Level 217 MG/DL (74-106) H Lactic Acid Level 2.00 mmol/L (0.66-2.22) 1.20 mmol/L (0.66-2.22) Calcium Level 8.9 MG/DL (8.5-10.1) Total Bilirubin 0.2 MG/DL (0.2-1.0) Aspartate Amino Transf (AST/SGOT) 13 U/L (15-37) L Alanine Aminotransferase (ALT/SGPT) 23 U/L (12-78) Alkaline Phosphatase 129 U/L (46-116) H Total Creatine Kinase 331 U/L (26-308) H Creatine Kinase MB 5.8 NG/ML (0.0-3.6) H Creatine Kinase MB Relative Index 1.7 Troponin I 0.088 ng/mL (0.000-0.056) Total Protein 7.5 G/DL (6.4-8.2) Albumin 3.2 G/DL (3.4-5.0) L Globulin 4.3 g/dL Albumin/Globulin Ratio 0.7 (1.0-2.7) L Urine Color Pale yellow Urine Appearance Clear Urine pH 5 (4.5-8.0) Urine Specific [place] 1.020 (1.005-1.035) Urine Protein 3+ (NEGATIVE) H Urine Glucose (UA) 1+ (NEGATIVE) H Urine Ketones Negative (NEGATIVE) Urine Occult Blood 3+ (NEGATIVE) H Urine Nitrite Negative (NEGATIVE) Urine Bilirubin Negative (NEGATIVE) Urine Urobilinogen Normal MG/DL (0.0-1.0) Urine Leukocyte Esterase Negative (NEGATIVE) Urine RBC 15-20 /HPF (0 - 0) H Urine WBC 0-2 /HPF (0 - 0) Urine Squamous Epithelial Cells None /LPF (NONE/OCC) Urine Bacteria Few /HPF (NONE) Height (Feet): 6 Height (Inches): 1.00 Weight (Pounds): 178 Medications Current Medications Medications (Trade) Dose Ordered Sig/Clint Route PRN Reason Start Time Stop Time Status Last Admin Dose Admin Levofloxacin 150 ml @ 150 mls/hr Q24H IV 05/04/17 23:45 05/05/17 23:44 05/05/17 01:56 Metronidazole 100 ml @ 100 mls/hr Q8HR IVPB 05/05/17 14:00 05/12/17 13:59 Piperacillin Sod/ Tazobactam Sod 4.5 gm/Sodium Chloride 110 ml @ 220 mls/hr Q8HR IV 05/04/17 23:45 05/05/17 23:44 05/05/17 06:27 Assessment/Plan Problem List: (1) Sepsis ICD Codes: A41.9 - Sepsis, unspecified organism SNOMED: 18523132 Qualifiers: Qualified Codes: A41.9 - Sepsis, unspecified organism (2) Encephalopathy acute ICD Codes: G93.40 - Encephalopathy, unspecified SNOMED: 2658953 (3) Fever ICD Codes: R50.9 - Fever, unspecified SNOMED: 297265090 (4) At high risk for aspiration ICD Codes: Z91.89 - Other specified personal risk factors, not elsewhere classified SNOMED: 233894988 (5) History of CVA (cerebrovascular accident) ICD Codes: Z86.73 - Personal history of transient ischemic attack (TIA), and cerebral infarction without residual deficits SNOMED: 877533441 Assessment/Plan cueva culture iv abx check sputum swallow study dvt prophylaxis check electrolytes. JM ALLISON May 05, 2017 14:44
[2017-05-05] MEDS ORDERED: Promethazine/Codeine 5ml UD ORAL PRN (14:45)
--- NOTE | 2017-05-05 15:41 | Cardiology Report ---
APPROVED REPORT EKG Measurement Heart [id number] Sinus rhythm with occasional premature ventricular complexes Low voltage QRS Inferior infarct, age undetermined Cannot rule out Anterior infarct, age undetermined Abnormal ECG
[2017-05-05] MEDS ORDERED: Flu Vaccine Quadrivalent 0.5ml IM ONE (16:00)
[2017-05-05] MEDS ORDERED: Pneumococcal Vaccine 25mcg/0.5ml IM ONE (16:00)
[2017-05-05] MEDS ORDERED: Zosyn 4.5gm q8h **Extended infusion IVPB SCH ×2 (18:00)
[2017-05-05] MEDS: Albuterol/Ipratropium 3ml neb HHN SCH (19:00)
[2017-05-05] MEDS: Zosyn 4.5gm q8h **Extended infusion IVPB SCH ×2 (22:19)
[2017-05-06] VITALS: BP 148/86
[2017-05-06] MEDS: Albuterol/Ipratropium 3ml neb HHN SCH ×4 (01:31→19:23)
[2017-05-06] MEDS: Aspirin Baby 81mg ORAL SCH ×2 (02:04→10:15)
--- NOTE | 2017-05-06 02:32 | Consultation ---
DATE OF CONSULTATION: 05/05/2017 CARDIOLOGY CONSULTATION CONSULTING PHYSICIAN: Jimenez Allen M.D. ATTENDING PHYSICIAN: Epi Nicholas M.D. REASON FOR CONSULTATION: Elevated troponin level in the setting of abnormal electrocardiogram. HISTORY OF PRESENT ILLNESS: This is a 71-year-old male with baseline dementia, who resides at a [facility] facility. He was brought into the emergency room for evaluation of malaise, altered mentation, and clinical signs of pulmonary infection. Apparently for the past several days, he has had some congestion and cough, but no fevers, chills, or complaints of chest pain. In the emergency room, abnormal findings included a chest x-ray revealing possible infiltrate and EKG revealing sinus rhythm with inferior infarction of indeterminate age and nonspecific ST-T wave changes and a troponin level of 0.088. PAST MEDICAL HISTORY: Includes: 1. Hypertension. 2. COPD. 3. Type 2 diabetes mellitus. 4. Cerebrovascular accident with right hemiparesis. 5. Dementia. 6. Peptic ulcer disease. SOCIAL HISTORY: No record of prior smoking, alcohol, or substance abuse. FAMILY HISTORY: Not known. MEDICATIONS: Prior to admission, reviewed and reconciled. ALLERGIES: None known. REVIEW OF SYSTEMS: Cannot be reliably obtained from the patient. We have reviewed prior records as well as prison charts and pertinent data as outlined above. Twenty minutes time was spent on this task. PHYSICAL EXAMINATION: GENERAL: Awake, alert, in no acute respiratory distress, withdrawn and lethargic at times. VITAL SIGNS: Blood pressure 150/94, pulse 96, respiratory rate 18, and afebrile. HEENT: Conjunctivae pink. Sclerae are anicteric. Oropharynx clear. Mucous membranes dry. NECK: Supple. Jugular venous pressure normal. Carotid upstrokes without delay. LUNGS: Few rhonchi. CARDIAC: Regular rhythm and rate. Normal S1, S2 with a fourth heart sound. ABDOMEN: Soft, nontender. EXTREMITIES: Good pulses. No edema. NEUROLOGIC: With right hemiparesis. LABORATORY DATA: Sodium 136, potassium 4.3, bicarbonate 31, BUN 15, creatinine 1.0, glucose 217. Lactic acid normal. Total CK 331, MB 5.8, and MB index 1.7. Troponin 0.088. Albumin 3.2. White count 13.3, hemoglobin 11.8. Urinalysis with 15-20 red cells. IMPRESSION: 1. Healthcare-acquired pneumonia. 2. Toxic and metabolic encephalopathy. 3. Acute myocardial ischemia and possible [id number] infarction. 4. History of hypertension. 5. History of chronic obstructive pulmonary disease. 6. Cerebrovascular disease with right hemiparesis. 7. Mild hypovolemia and dehydration. PLAN: 1. Panculture. 2. Broad-spectrum antibiotics. 3. Bronchodilators. 4. Respiratory hygiene. 5. DVT prophylaxis. 6. Antiplatelet therapy with aspirin. 7. Cautious beta-blockade. 8. Maintenance hydration. 9. Swallow evaluation recommended. 10. Echocardiogram, serial troponin levels, and lipid panel to follow. 11. Further recommendations will follow based on clinical course. Jimenez Allne M.D. DR: KAREEM JOB#: [id number] CC:
[2017-05-06 04:00] VITALS: BP 148/86
[2017-05-06] MEDS: Zosyn 4.5gm q8h **Extended infusion IVPB SCH ×6 (06:21→23:12)
[2017-05-06] MEDS: NovoLOG Insulin Flexpen SUBQ SCH ×4 (06:24→22:07)
--- NOTE | 2017-05-06 07:45 | History and Physical Report ---
DATE OF ADMISSION: 05/05/2017 REASON FOR ADMISSION: This is one of several admissions to [facility] of this 71-year-old patient because of pneumonia. HISTORY OF PRESENT ILLNESS: The patient is a resident of an extended care facility where he has been in relatively stable condition over the last month. He is noted to have several chronic medical syndrome, but has been stable on current medication. On the day of admission, he developed fever, tachycardia, tachypnea, and hypoxia. Workup done in the facility revealed that the patient has moderate leukocytosis to 14,000 and chest x-ray revealed left lower lobe infiltrate. He was transferred to [facility] ER where found elevated troponin and the patient was admitted. PAST MEDICAL HISTORY: He denied any surgical antecedent. Medically, he is known to have status post CVA several years ago, following which he developed difficulty swallowing, but still able to swallow consistency diet. Medically, he is known to have high blood pressure for more than 10 years, COPD for more than 10 years. He had an episode of pneumonia for which he was admitted to this hospital one month ago. He has a history of chronic psychosis bipolar disorder, diabetes mellitus, and has been with generalized weakness now for several months. MEDICATIONS: The patient is on albuterol sulfate, ipratropium bromide inhalation therapy every six hours, and he is on promethazine one teaspoon t.i.d. ALLERGIES: No known drug allergies. FAMILY HISTORY: Both parents from cardiovascular disease, one sister in good health, one brother who is extremely ill in the care of the patient. HABITS: The patient does not smoke, drink, or use illicit drugs. REVIEW OF SYSTEMS: The patient is unable to give any information regarding the state of health. PHYSICAL EXAMINATION: VITAL SIGNS: Blood pressure is 141/72, his pulse is 89, respirations 19, and temperature 98.5. HEENT: Eyes were normal. Pupils were round, equal, and reacting to light. Sclerae were white. Conjunctivae were pink. Extraocular movements were normal. Temporal arteries were palpable bilaterally. There was no bilateral temporal wasting. Visual dee intact to confrontation. Neglect sign could not be assessed. ENT, mucous membranes were not dehydrated. Auditory canals were clear and tympanic membranes could not be visualized. Nasal cavity was not congested. Nasal septum was intact. Soft palate was free of ulcerations. Pharynx was clear from exudate or tonsillar hypertrophy. Uvula yousuf to phonation. Tongue was moist, midline, and normally papillated. NECK: Supple. There was no goiter. No mass. No lymphadenopathy. There was no JVD. No bruits. Carotid upstroke was 1+. LUNGS: Clear in upper and lower lobes, but there were bilateral rhonchi at both bases. HEART: PMI was at fifth left intercostal space in midclavicular line. There was normal S1 and normal S2. There was no murmur. No arrhythmia. No S3. No S4. No pericardial rub. ABDOMEN: Soft and nontender without organomegaly. There were no masses palpable. Normal bowel sounds without bruits. There was no guarding. No rebound tenderness. No ascites. No hernia. No CVA tenderness. Liver span was 8 cm, mostly nontender. EXTREMITIES: No cyanosis, no clubbing, and no edema. Extremities were warm. NEUROLOGICAL EXAMINATION: Reflexes in biceps, triceps, and brachioradialis were present. Patellar retinaculum were present. Plantar were in extension on the right and flexor on the left. Cranial nerves II through XII were symmetric and equal. Cerebellar function, there was no tremor and no nystagmus. No extrapyramidal rigidity. Sensory exam to pinprick, cotton touch, position, and motor strength could not be done because of lack of the patient's cooperation. LABORATORY DATA: Hemoglobin is 11.8, hematocrit 35.9, MCV of 87, WBC of 13.2, and platelet count 404,000. His BUN and creatinine is 15 and 1.0 respectively. Sodium is 136, potassium 4.3, chloride 99, and CO2 is 31. His glucose is 217. His lactic acid was 2 yesterday and 1.2 and today. His troponin is 0.088. Total CK is 331. fraction is 5.8. is 129. A chest x-ray was done pulmonary vascular congestion. There is cardiomegaly without . IMPRESSION: The patient was started on Zosyn 4.5 g IV piggyback q.6 h. and metronidazole 500 mg intravenous piggyback q.8 h. Sputum and blood was sent for culture and sensitivity. Repeat laboratory tests will be done in the a.m. Pulmonary art consultant and networks software consultant were called to assist in the management of this case. Epi Nicholas M.D. DR: CATHLEEN JOB#: [id number] CC: ELIZ
[2017-05-06 07:55] LABS: EOSINOPHILS % (AUTO) 3.6 % (0.0-3.0); HEMOGLOBIN 11.2 G/DL (14.2-18.0); LYMPHOCYTES % (AUTO) 27.3 % (20.0-45.0); MEAN CORPUSCULAR VOLUME 87 FL (80-99); NEUTROPHILS % (AUTO) 58.2 % (45.0-75.0); PLATELET COUNT 369 K/UL (150-450); RED BLOOD COUNT 3.79 M/UL (4.70-6.10); RED CELL DISTRIBUTION WIDTH 12.1 % (11.6-14.8); WHITE BLOOD COUNT 10.4 K/UL (4.8-10.8)
[2017-05-06 08:00] VITALS: BP 125/69
[2017-05-06 08:20] LABS: ALANINE AMINOTRANSFERASE 11 U/L (12-78); ALBUMIN 2.8 G/DL (3.4-5.0); ALBUMIN/GLOBULIN RATIO 0.7 (1.0-2.7); ALKALINE PHOSPHATASE 99 U/L (46-116); ANION GAP 5 mmol/L (5-15); ASPARTATE AMINO TRANSFERASE 13 U/L (15-37); BILIRUBIN,TOTAL 0.4 MG/DL (0.2-1.0); BLOOD UREA NITROGEN 9 mg/dL (7-18); CALCIUM 8.8 MG/DL (8.5-10.1); CARBON DIOXIDE 32 MMOL/L (21-32); CHLORIDE 103 MMOL/L (98-107); CREATININE 0.9 MG/DL (0.55-1.30); POTASSIUM 3.5 MMOL/L (3.5-5.1); SODIUM 140 MMOL/L (136-145)
[2017-05-06] MEDS ORDERED: Heparin 5000 units/ml inj SUBQ SCH (09:00)
[2017-05-06 09:13] LABS: CHOLESTEROL 125 MG/DL (< 200); HDL CHOLESTEROL 50 MG/DL (40-60); TRIGLYCERIDES 93 MG/DL (30-150)
[2017-05-06] MEDS: Metoprolol 25mg tab ORAL SCH ×2 (10:15→22:02)
[2017-05-06] MEDS: Heparin 5000 units/ml inj SUBQ SCH ×2 (10:18→22:06)
--- NOTE | 2017-05-06 11:05 | Diagnostic Imaging Report ---
Indication: Dyspnea Comparison: 05/04/2017 A single view chest radiograph was obtained. Findings: No definite infiltrate or pulmonary vascular congestion identified. The heart is within normal limits. The aorta is mildly enlarged consistent with atherosclerotic vascular disease. The bones are osteopenic. Impression: No acute disease
--- NOTE | 2017-05-06 11:57 | Pulmonology Progress Note ---
Assessment/Plan Problems: (1) Sepsis (2) Encephalopathy acute (3) Fever (4) At high risk for aspiration (5) History of CVA (cerebrovascular accident) Assessment/Plan iv abx, on Zosyn and flagyl BC negative times two troponin still positive, probably demand ischemia respiratory treatment check sputum med/surg if ok with diabetes specialist. Subjective ROS Limited/Unobtainable: Yes - awak Interval Events: awake, comfortable, d/w brother at the bedsite Allergies: Coded Allergies: No Known Allergies (Unverified , 01/21/17) Objective Last 24 Hour Vital Signs Date Time Temp Pulse Resp B/P (MAP) Pulse Ox O2 Delivery O2 Flow Rate FiO2 05/06/17 10:15 91 125/69 05/06/17 08:00 97.7 91 20 125/69 97 Room Air 05/06/17 06:38 Nasal Cannula 2.0 05/06/17 06:38 Nasal Cannula 2.0 05/06/17 04:00 81 05/06/17 02:29 72 16 Room Air 21 05/06/17 01:55 78 20 99 Room Air 21 05/06/17 01:45 74 16 98 Room Air 21 05/06/17 00:00 97.5 85 20 148/86 98 Room Air 05/06/17 00:00 81 05/05/17 20:00 97.9 84 22 144/83 96 Room Air 05/05/17 20:00 86 05/05/17 17:56 83 05/05/17 13:22 98.7 95 25 143/68 100 Nasal Cannula 2.0 05/05/17 12:56 98.7 95 25 143/68 100 Nasal Cannula 2.0 Intake and Output 05/05/17 05/06/17 19:00 07:00 Intake Total 400 ml Balance 400 ml Intake Oral 400 ml # Voids 3 # Bowel Movements 1 General Appearance: WD/WN HEENT: normocephalic, atraumatic Respiratory/Chest: chest wall non-tender, lungs clear Cardiovascular: normal peripheral pulses, normal rate Abdomen: normal bowel sounds, no organomegaly Extremities: no cyanosis, no clubbing Skin: no rash, no lesions Microbiology Date/Time Source Procedure Growth Status 05/04/17 23:35 Blood Blood Culture - Preliminary NO GROWTH AFTER 24 HOURS Resulted 05/04/17 23:30 Blood Blood Culture - Preliminary NO GROWTH AFTER 24 HOURS Resulted Laboratory Tests 05/06/17 06:45: White Blood Count 10.4, Red Blood Count 3.79L, Hemoglobin 11.2L, Hematocrit 33.0L, Mean Corpuscular Volume 87, Mean Corpuscular Hemoglobin 29.5, Mean Corpuscular Hemoglobin Concent 33.9, Red Cell Distribution Width 12.1, Platelet Count 369, Mean Platelet Volume 5.6L, Neutrophils (%) (Auto) 58.2, Lymphocytes ( %) (Auto) 27.3, Monocytes (%) (Auto) 10.0, Eosinophils (%) (Auto) 3.6H, Basophils (%) (Auto) 1.0, Sodium Level 140, Potassium Level 3.5, Chloride Level 103, Carbon Dioxide Level 32, Anion Gap 5, Blood Urea Nitrogen 9, Creatinine 0.9 , Estimat Glomerular Filtration Rate > 60, Glucose Level 118#H, Calcium Level 8.8, Total Bilirubin 0.4, Aspartate Amino Transf (AST/SGOT) 13L, Alanine Aminotransferase (ALT/SGPT) 11L, Alkaline Phosphatase 99, Troponin I 0.091H, Pro -B-Type Natriuretic Peptide 560H, Total Protein 6.8, Albumin 2.8L, Globulin 4.0 , Albumin/Globulin Ratio 0.7L, Triglycerides Level 93, Cholesterol Level 125, LDL Cholesterol 57, HDL Cholesterol 50, Cholesterol/HDL Ratio 2.5L, Thyroid Stimulating Hormone (TSH) 1.941, Hepatitis A IgM Antibody [Pending], Hepatitis B Surface Antigen [Pending], Hepatitis B Core IgM Antibody [Pending], Hepatitis C Antibody [Pending] Current Medications Medications (Trade) Dose Ordered Sig/Clint Route PRN Reason Start Time Stop Time Status Last Admin Dose Admin Albuterol/ Ipratropium (Albuterol/ Ipratropium) 3 ml Q6HRT HHN 05/05/17 19:00 05/10/17 18:59 05/06/17 01:31 Aspirin (ASA) 81 mg DAILY ORAL 05/06/17 01:00 06/05/17 00:59 05/06/17 10:15 Atorvastatin Calcium (Lipitor) 40 mg BEDTIME ORAL 05/06/17 21:00 06/05/17 20:59 Dextrose (Dextrose 50%) STAT PRN IV Hypoglycemia 05/06/17 01:45 06/05/17 01:44 Heparin Sodium (Porcine) (Heparin 5000 units/ml) 5,000 units EVERY 12 HOURS SUBQ 05/06/17 09:00 06/05/17 08:59 05/06/17 10:18 Insulin Aspart (NovoLOG) BEFORE MEALS AND HS SUBQ 05/06/17 06:30 06/05/17 06:29 05/06/17 06:24 Metoprolol Tartrate (Lopressor) 25 mg Q12HR ORAL 05/06/17 09:00 06/05/17 08:59 05/06/17 10:15 Metronidazole 100 ml @ 100 mls/hr Q8HR IVPB 05/05/17 14:00 05/12/17 13:59 05/06/17 04:53 Piperacillin Sod/ Tazobactam Sod 4.5 gm/Sodium Chloride 110 ml @ 27.5 mls/hr EVERY 8 HOURS IVPB 05/05/17 22:00 05/12/17 21:59 05/06/17 06:21 Promethazine HCl/ Codeine (Phenergan with Codeine) 5 ml Q4H PRN ORAL For Cough 05/05/17 14:45 06/04/17 14:44 Tamsulosin HCl (Flomax) 0.4 mg BEDTIME ORAL 05/06/17 21:00 06/05/17 20:59 JM ALLISON May 06, 2017 11:57
--- NOTE | 2017-05-06 12:49 | Cardiology Report ---
APPROVED REPORT EXAM: Two-dimensional and M-mode echocardiogram with Doppler and color Doppler. INDICATION Acute myocard infarction M-Mode DIMENSIONS Left Atrium (MM)3.9 (1.6-4.0cm) Aortic Root3.1 (2.0-3.7cm) Aortic Cusp Exc.1.7 (1.5-2.0cm) Technically difficult study due to poor acoustical windows. M-mode measurements not obtainable due to cardiac structure. Normal left ventricular chamber size, systolic function and wall motion. Left ventricular ejection fraction estimated to be 55-60%. No evidence of left ventricular hypertrophy. No evidence of pericardial or pleural effusion. All other cardiac chamber sizes are within normal limits. Focal aortic valve sclerosis with adequate cusp excursion. Thickened mitral valve leaflets with normal excursion. Mild mitral annulus and aortic root calcification. Pulmonic valve not well visualized. Normal tricuspid valve structure. IVC is not obtainable. A color flow and spectral Doppler study was performed and revealed: No aortic regurgitation. No mitral regurgitation. Mitral diastolic velocities suggest reduced left ventricular relaxation c/w diastolic dysfunction grade 1. No tricuspid regurgitation.
[2017-05-06 20:00] VITALS: BP 146/87
--- NOTE | 2017-05-06 21:56 | Wound Care Consultation ---
Wound Assessment Wound Assessment #1: Wound Number: 1 Wound Present on Admission: Yes New Wound: No Status Change of Wound: No Wound Location Body Site Modif: mid Wound Location Body Site: other - Sacrococcygeal extending to left and right buttock Wound Type: pressure ulcer Mercy Test: Does not Mercy Pressure Ulcer Stage: Deep Tissue Injury - with extensive scar tissue Wound Thickness: Full Thickness Wound Length: 8.5 Wound Width: 8.0 Wound Depth: utd Percent of Wound Purple/Maroon: 100 Wound Drainage Amount: None Wound Drainage Odor: None/Absent Tissue Surrounding Wound: Erythemic Wound General Appearance: Reddened - purple/maroon Wound Assessment #2: Wound Number: 2 Wound Present on Admission: Yes New Wound: No Status Change of Wound: No Wound Location Body Site Modif: right Wound Location Body Site: heel Wound Type: pressure ulcer Mercy Test: Does not Mercy Pressure Ulcer Stage: Deep Tissue Injury - with full thickness scar tissue Wound Thickness: Full Thickness Wound Length: 5.0 Wound Width: 3.0 Wound Depth: utd Percent of Wound [place]/Red: 100 - deep Wound Drainage Amount: None Wound Drainage Odor: None/Absent Tissue Surrounding Wound: full thickness scar tissue Wound General Appearance: Reddened - deep Wound Comment #1 Sacrococcygeal DTI with full thickness scar tissue #2 Right heel DTI pressure ulcer full thickness #3 Mid back full thickness scar tissue Recommendation -Local wound care per protocol -Optimize nutrition -Keep clean and dry -Heel protector on both heels -Offload both heels -Turn and reposition -Low air loss mattress -Assess and f/u accordingly for any changes MANAV MATA RN May 06, 2017 21:56
[2017-05-06] MEDS: Tamsulosin 0.4mg cap ORAL SCH (22:01)
[2017-05-06] MEDS: Atorvastatin 20mg tab ORAL SCH (22:02)
--- NOTE | 2017-05-06 22:07 | Consultation ---
Consult Note Consult Note [id number] JESSICA FRITZ M.D. May 06, 2017 22:07
--- NOTE | 2017-05-06 22:45 | Progress Note ---
DATE: 05/06/2017 CARDIOLOGY PROGRESS NOTE SUBJECTIVE: The patient is seen and evaluated with brother at bedside. The patient has no apparent respiratory distress, but does have difficulty mobilizing secretions. No chest pain. Monitored rhythm sinus. PHYSICAL EXAMINATION: VITAL SIGNS: Blood pressure 125/69, pulse 91, respiratory rate 20, afebrile. LUNGS: A few rhonchi. CARDIAC: Regular rhythm and rate. Normal S1 and S2. No murmur. ABDOMEN: Soft. No edema. LABORATORY AND DIAGNOSTIC DATA: A 2D echocardiogram revealed normal ejection fraction and no wall motion abnormalities. White count 10 and hemoglobin 11. Troponin 0.091. Pro-natriuretic peptide 560. IMPRESSION: 1. Troponin leak. No signs of acute myocardial infarction. 2. Diastolic dysfunction with no signs of acute congestive heart failure. 3. Healthcare-acquired pneumonia. PLAN: 1. Maintain potassium levels in normal ranges, supplement as needed. 2. Continue anti-platelet therapy and statin drugs for LDL goal less than 100. 3. Continue beta-blockade for blood pressure management and antianginal benefits. 4. No plans for additional cardiovascular workup in this clinical setting. Jimenez Allen M.D. DR: PHANI JOB#: [id number] CC:
[2017-05-07] VITALS: BP 120/78
[2017-05-07] MEDS: Albuterol/Ipratropium 3ml neb HHN SCH ×5 (01:00→15:15)
--- NOTE | 2017-05-07 01:00 | Consultation ---
DATE OF CONSULTATION: 05/06/2017 INFECTIOUS DISEASES CONSULTATION CONSULTING PHYSICIAN: Rigo Olea M.D. REFERRING PHYSICIAN: Hebert Jean M.D. REASON FOR CONSULTATION: Evaluation of the patient for pneumonia. HISTORY OF PRESENT ILLNESS: The patient is a 71-year-old male with multiple medical problems who was admitted recently to this medical center. Now, the patient comes to the hospital with shortness of breath and cough. An Infectious Diseases consultation has been requested for evaluation of the patient and antibiotic management. The patient is not able to provide information. Much of the information is gathered through the chart and speaking to the staff. PAST MEDICAL HISTORY: Significant for pressure ulcer of heel, history of osteomyelitis in the past, diabetes, CVA, and dysphagia. MEDICATIONS: Zosyn. ALLERGIES: No known drug allergies. SOCIAL HISTORY: The patient lives in a long term. FAMILY HISTORY: Unavailable. REVIEW OF SYSTEMS: Unobtainable. PHYSICAL EXAMINATION: VITAL SIGNS: Temperature 98, pulse 86, respiratory rate 18, and blood pressure 146/87. HEENT: No pale conjunctivae. No icterus. NECK: No lymphadenopathy. CHEST: Clear. HEART: S1 and S2. ABDOMEN: Soft and nontender. EXTREMITIES: No cyanosis. NEUROLOGIC: Nonverbal. SKIN: Sacral decubitus. No signs of infection. LABORATORY AND DIAGNOSTIC DATA: White blood cells 10, at the time of admission was 13, hemoglobin 11.2, and platelets 369. UA unremarkable. BUN 9 and creatinine 0.9. ALT, AST, and alkaline phosphatase were unremarkable. Hepatitis panel is pending. Blood culture is pending. Chest x-ray, [facility]. ASSESSMENT: The patient is a 71-year-old male, who came to the hospital with shortness of breath. Chest x-ray has not shown any evidence of infiltrate. At the time of admission, the patient had: 1. Leukocytosis, status post. 2. Rule out recurrent urinary tract infection. 3. Rule out influenza. PLAN: 1. We will continue the patient on IV Zosyn. 2. Monitor CBC. 3. Monitor BMP. 4. Monitor cultures (blood, sputum, and urine). 5. Rapid influenza test. 6. Hepatitis panel. 7. Based on the patient's clinical course and laboratories, we will do further recommendation. Thank you Dr. Jean for allowing me to participate in the care of this patient. I will follow the patient with you during this hospitalization. Rigo Olea M.D. DR: ZACK JOB#: [id number] CC:
[2017-05-07 04:00] VITALS: BP 130/77
[2017-05-07] MEDS: Zosyn 4.5gm q8h **Extended infusion IVPB SCH ×6 (06:27→22:38)
[2017-05-07] MEDS: NovoLOG Insulin Flexpen SUBQ SCH ×4 (06:29→22:36)
--- NOTE | 2017-05-07 07:18 | Progress Note ---
DATE: 05/06/2017 SUBJECTIVE: The patient is awake, alert, afebrile, hemodynamically stable without respiratory distress. PHYSICAL EXAMINATION: VITAL SIGNS: Blood pressure 146/87, his pulse is 91, respirations 18, and temperature 98.2. HEENT: Eyes were normal. ENT, mucous membranes were moist and intact. NECK: Supple with no JVD without lymph nodes. LUNGS: Clear. HEART: Normal sounds with regular beats. There is no tachycardia at rest. ABDOMEN: Soft and nontender with normal bowel sounds. EXTREMITIES: Warm without cyanosis, clubbing, or edema. LABORATORY AND DIAGNOSTIC DATA: His hemoglobin is 11.2, hematocrit 33.0, MCV of 87, WBC of 10.4, and platelets are 369,000. His BUN and creatinine is 9 and 0.9, respectively. Sodium was 140, potassium 3.5, chloride 103, and CO2 is 32. His calcium is 8.8. SGOT, SGPT, and alkaline phosphatase are normal. Troponin was 0.091. ProBNP is 560. Albumin is 2.9. Total protein is 6.8. Chest x-rays shows no definite infiltrate. Heart is normal size. IMPRESSION AND PLAN: The patient continued to have pneumonia. He is afebrile, hemodynamically stable without tachycardia and tachypnea. The patient can be discharged in the a.m. back to the extended care facility. Epi Nicholas M.D. DR: LM JOB#: [id number] CC:
[2017-05-07 08:00] VITALS: BP 135/91
[2017-05-07] MEDS: Metoprolol 25mg tab ORAL SCH ×2 (09:04→22:39)
[2017-05-07] MEDS: Aspirin Baby 81mg ORAL SCH (09:04)
[2017-05-07] MEDS: Heparin 5000 units/ml inj SUBQ SCH ×2 (09:07→22:34)
--- NOTE | 2017-05-07 11:05 | Infectious Diseases Prog Note ---
Assessment/Plan Assessment/Plan ASSESSMENT: The patient is a 71-year-old male, ?Asp Pneum SP SOB Xray : development of streaky left basilar opacities thought to be related to subsegmental atelectasis. Leukocytosis, status post. Rule out recurrent urinary tract infection. Rule out influenza. Pressure ulcer of heel, and osteomyelitis Diabetes CVA dysphagia Chest x-ray, [facility]. PLAN: Cont on IV Zosyn d# 2/ 7 , ok to DC on Augmentin to complete the course DC Flagyl d# 2 Monitor CBC Monitor BMP. Monitor cultures (blood, sputum, and urine) Rapid influenza test. Hepatitis panel. possible DC tomorrow to [facility] Subjective Allergies: Coded Allergies: No Known Allergies (Unverified , 01/21/17) Subjective non verbal Objective Vital Signs Last 24 Hour Vital Signs Date Time Temp Pulse Resp B/P (MAP) Pulse Ox O2 Delivery O2 Flow Rate FiO2 05/07/17 09:04 87 135/91 05/07/17 08:03 Room Air 05/07/17 08:01 Room Air 05/07/17 08:00 87 19 135/91 97 Room Air 05/07/17 08:00 81 05/07/17 04:00 83 05/07/17 04:00 88 18 130/77 92 Room Air 05/07/17 01:38 78 16 99 Room Air 05/07/17 01:28 79 16 98 Room Air 21 05/07/17 01:05 Room Air 05/07/17 00:00 76 05/07/17 00:00 98.0 79 18 120/78 99 05/06/17 22:02 91 146/87 05/06/17 20:00 98.2 91 18 146/87 100 05/06/17 20:00 91 05/06/17 19:34 88 18 98 Room Air 05/06/17 19:24 88 18 94 Room Air 21 05/06/17 16:00 95 05/06/17 13:50 76 16 95 Room Air 05/06/17 13:41 87 16 95 05/06/17 12:00 75 Height (Feet): 6 Height (Inches): 1.00 Weight (Pounds): 178 HEENT: anicteric Respiratory/Chest: no respiratory distress Cardiovascular: regular rhythm Abdomen: no organomegaly Microbiology Date/Time Source Procedure Growth Status 05/04/17 23:35 Blood Blood Culture - Preliminary NO GROWTH AFTER 48 HOURS Resulted 05/04/17 23:30 Blood Blood Culture - Preliminary NO GROWTH AFTER 48 HOURS Resulted 05/05/17 00:01 Nasal Nares MRSA Culture - Final Staphylococcus Aureus - Mrsa Complete 05/05/17 00:01 Rectum VRE Culture - Final Enterococcus Faecalis - Vre Complete Current Medications Medications (Trade) Dose Ordered Sig/Clint Route PRN Reason Start Time Stop Time Status Last Admin Dose Admin Acetaminophen (Tylenol) 650 mg Q4H PRN ORAL Mild Pain/Temp > 100.5 05/06/17 22:30 06/05/17 22:29 05/06/17 23:29 Albuterol/ Ipratropium (Albuterol/ Ipratropium) 3 ml Q6HRT HHN 05/05/17 19:00 05/10/17 18:59 05/07/17 01:28 Aspirin (ASA) 81 mg DAILY ORAL 05/06/17 01:00 06/05/17 00:59 05/07/17 09:04 Atorvastatin Calcium (Lipitor) 40 mg BEDTIME ORAL 05/06/17 21:00 06/05/17 20:59 05/06/17 22:02 Dextrose (Dextrose 50%) STAT PRN IV Hypoglycemia 05/06/17 01:45 06/05/17 01:44 Heparin Sodium (Porcine) (Heparin 5000 units/ml) 5,000 units EVERY 12 HOURS SUBQ 05/06/17 09:00 06/05/17 08:59 05/07/17 09:07 Insulin Aspart (NovoLOG) BEFORE MEALS AND HS SUBQ 05/06/17 06:30 06/05/17 06:29 05/07/17 06:29 Metoprolol Tartrate (Lopressor) 25 mg Q12HR ORAL 05/06/17 09:00 06/05/17 08:59 05/07/17 09:04 Metronidazole 100 ml @ 100 mls/hr Q8HR IVPB 05/05/17 14:00 05/12/17 13:59 05/07/17 05:23 Piperacillin Sod/ Tazobactam Sod 4.5 gm/Sodium Chloride 110 ml @ 27.5 mls/hr EVERY 8 HOURS IVPB 05/05/17 22:00 05/12/17 21:59 05/07/17 06:27 Promethazine HCl/ Codeine (Phenergan with Codeine) 5 ml Q4H PRN ORAL For Cough 05/05/17 14:45 06/04/17 14:44 Tamsulosin HCl (Flomax) 0.4 mg BEDTIME ORAL 05/06/17 21:00 06/05/17 20:59 05/06/17 22:01 JESSICA FRITZ M.D. May 07, 2017 11:05
[2017-05-07 12:00] VITALS: BP 143/93
--- NOTE | 2017-05-07 12:46 | Diagnostic Imaging Report ---
Indication: Dyspnea Technique: XRAY Chest 1v Comparison: 05/06/2017 Findings: Heart size and mediastinal contours are within normal limits given technique. There is development of streaky left basilar opacities thought to represent subsegmental atelectasis. No pleural effusion or pneumothorax. No acute osseous abnormality seen. Impression: Development of streaky left basilar opacities thought to be related to subsegmental atelectasis. Clinical correlation recommended.
[2017-05-07 16:00] VITALS: BP 141/61
[2017-05-07] MEDS ORDERED: Augmentin 875mg Tab ORAL SCH (18:00)
--- NOTE | 2017-05-07 18:57 | Pulmonology Progress Note ---
Assessment/Plan Problems: (1) Sepsis (2) Encephalopathy acute (3) Fever (4) At high risk for aspiration (5) History of CVA (cerebrovascular accident) Assessment/Plan imroving, afebrile, doing b cain d/w brohter iv abx, on Zosyn and flagyl BC negative times two troponin still positive, probably demand ischemia respiratory treatment check sputum med/surg if ok with maintenance inspector. Subjective ROS Limited/Unobtainable: No Allergies: Coded Allergies: No Known Allergies (Unverified , 01/21/17) Objective Last 24 Hour Vital Signs Date Time Temp Pulse Resp B/P (MAP) Pulse Ox O2 Delivery O2 Flow Rate FiO2 05/07/17 16:00 101 19 141/61 98 Room Air 05/07/17 16:00 96 05/07/17 15:28 Room Air 05/07/17 15:15 Room Air 21 05/07/17 12:57 Room Air 05/07/17 12:30 Room Air 05/07/17 12:00 80 19 143/93 97 Room Air 05/07/17 12:00 80 05/07/17 09:04 87 135/91 05/07/17 08:03 Room Air 05/07/17 08:01 Room Air 05/07/17 08:00 87 19 135/91 97 Room Air 05/07/17 08:00 81 05/07/17 04:00 83 05/07/17 04:00 88 18 130/77 92 Room Air 05/07/17 01:38 78 16 99 Room Air 05/07/17 01:28 79 16 98 Room Air 05/07/17 01:05 Room Air 05/07/17 00:00 76 05/07/17 00:00 98.0 79 18 120/78 99 05/06/17 22:02 91 146/87 05/06/17 20:00 98.2 91 18 146/87 100 05/06/17 20:00 91 05/06/17 19:34 88 18 98 Room Air 05/06/17 19:24 88 18 94 Room Air 21 Intake and Output 05/06/17 05/07/17 19:00 07:00 Intake Total 520 ml 200 ml Output Total 75 ml 750 ml Balance 445 ml -550 ml Intake Oral 420 ml 200 ml IV Total 100 ml Output Urine Total 75 ml 750 ml # Voids 1 2 Objective General Appearance: cachetic HEENT: normocephalic, atraumatic Respiratory/Chest: chest wall non-tender, normal breath sounds Cardiovascular: normal peripheral pulses, normal rate, regularly irregular Abdomen: normal bowel sounds, no organomegaly, no mass Genitourinary: normal external genitalia Extremities: no cyanosis Skin: no rash, no lesions Microbiology Date/Time Source Procedure Growth Status 05/04/17 23:35 Blood Blood Culture - Preliminary NO GROWTH AFTER 48 HOURS Resulted 05/04/17 23:30 Blood Blood Culture - Preliminary NO GROWTH AFTER 48 HOURS Resulted 05/07/17 01:49 Sputum Gram Stain - Final Resulted 05/07/17 01:49 Sputum Sputum Culture Pending Resulted 05/05/17 00:01 Nasal Nares MRSA Culture - Final Staphylococcus Aureus - Mrsa Complete 05/05/17 00:01 Rectum VRE Culture - Final Enterococcus Faecalis - Vre Complete Current Medications Medications (Trade) Dose Ordered Sig/Clint Route PRN Reason Start Time Stop Time Status Last Admin Dose Admin Acetaminophen (Tylenol) 650 mg Q4H PRN ORAL Mild Pain/Temp > 100.5 05/06/17 22:30 06/05/17 22:29 05/06/17 23:29 Albuterol/ Ipratropium (Albuterol/ Ipratropium) 3 ml Q6HRT HHN 05/05/17 19:00 05/10/17 18:59 05/07/17 15:15 Amoxicillin/ Clavulanate Potassium (Augmentin) 875 mg BID ORAL 05/08/17 18:00 05/13/17 09:01 Aspirin (ASA) 81 mg DAILY ORAL 05/06/17 01:00 06/05/17 00:59 05/07/17 09:04 Atorvastatin Calcium (Lipitor) 40 mg BEDTIME ORAL 05/06/17 21:00 06/05/17 20:59 05/06/17 22:02 Dextrose (Dextrose 50%) STAT PRN IV Hypoglycemia 05/06/17 01:45 06/05/17 01:44 Heparin Sodium (Porcine) (Heparin 5000 units/ml) 5,000 units EVERY 12 HOURS SUBQ 05/06/17 09:00 06/05/17 08:59 05/07/17 09:07 Insulin Aspart (NovoLOG) BEFORE MEALS AND HS SUBQ 05/06/17 06:30 06/05/17 06:29 05/07/17 17:33 Metoprolol Tartrate (Lopressor) 25 mg Q12HR ORAL 05/06/17 09:00 06/05/17 08:59 05/07/17 09:04 Piperacillin Sod/ Tazobactam Sod 4.5 gm/Sodium Chloride 110 ml @ 27.5 mls/hr EVERY 8 HOURS IVPB 05/05/17 22:00 05/12/17 21:59 05/07/17 14:18 Promethazine HCl/ Codeine (Phenergan with Codeine) 5 ml Q4H PRN ORAL For Cough 05/05/17 14:45 06/04/17 14:44 Tamsulosin HCl (Flomax) 0.4 mg BEDTIME ORAL 05/06/17 21:00 06/05/17 20:59 05/06/17 22:01 JM ALLISON May 07, 2017 18:56
[2017-05-07 20:00] VITALS: BP 145/100
[2017-05-07] MEDS: Atorvastatin 20mg tab ORAL SCH (22:37)
[2017-05-07] MEDS: Tamsulosin 0.4mg cap ORAL SCH (22:39)
[2017-05-08] MEDS: Albuterol/Ipratropium 3ml neb HHN SCH ×2 (01:00→07:50)
[2017-05-08] MEDS: NovoLOG Insulin Flexpen SUBQ SCH (06:25)
[2017-05-08] MEDS: Zosyn 4.5gm q8h **Extended infusion IVPB SCH ×2 (06:25)
[2017-05-08] MEDS ORDERED: AUGMENTIN 875-1 EAC1 ORAL (08:29)
[2017-05-08 08:49] VITALS: BP 144/85
[2017-05-08 09:06] VITALS: BP 144/85
[2017-05-08] MEDS: Metoprolol 25mg tab ORAL SCH (09:06)
[2017-05-08] MEDS: Aspirin Baby 81mg ORAL SCH (09:06)
[2017-05-08] MEDS: Heparin 5000 units/ml inj SUBQ SCH (09:08)
--- NOTE | 2017-05-08 09:53 | Infectious Diseases Prog Note ---
Assessment/Plan Assessment/Plan ASSESSMENT: The patient is a 71-year-old male, ?Asp Pneum SP SOB Xray : development of streaky left basilar opacities thought to be related to subsegmental atelectasis. -sp cx GNRs Leukocytosis, status post. u/a no pyuria Rule out influenza. Pressure ulcer of heel, and osteomyelitis Diabetes CVA dysphagia Chest x-ray, [facility]. 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 Monitor cultures (blood, sputum, and urine) Rapid influenza test. possible DC to SNF Subjective Allergies: Coded Allergies: No Known Allergies (Unverified , 01/21/17) Subjective afebrile no leukocytosis at RA Objective Vital Signs Last 24 Hour Vital Signs Date Time Temp Pulse Resp B/P (MAP) Pulse Ox O2 Delivery O2 Flow Rate FiO2 05/08/17 09:06 83 144/85 05/08/17 08:49 97.6 83 20 144/85 96 Room Air 05/08/17 07:50 Room Air 21 05/08/17 07:50 88 18 96 Room Air 21 05/08/17 04:00 83 05/08/17 01:35 Room Air 05/08/17 01:34 Room Air 21 05/08/17 00:00 79 05/07/17 22:39 93 145/100 05/07/17 20:00 93 05/07/17 20:00 98.9 93 22 145/100 99 05/07/17 19:47 Room Air 05/07/17 19:43 Room Air 21 05/07/17 16:00 101 19 141/61 98 Room Air 05/07/17 16:00 96 05/07/17 15:28 Room Air 05/07/17 15:15 Room Air 21 05/07/17 12:57 Room Air 05/07/17 12:30 Room Air 05/07/17 12:00 80 19 143/93 97 Room Air 05/07/17 12:00 80 Height (Feet): 6 Height (Inches): 1.00 Weight (Pounds): 178 Objective HEENT: anicteric Respiratory/Chest: no respiratory distress Cardiovascular: regular rhythm Abdomen: no organomegaly Microbiology Date/Time Source Procedure Growth Status 05/07/17 01:49 Sputum Gram Stain - Final Resulted 05/07/17 01:49 Sputum Culture - Preliminary Gram Negative Jesus Resulted Current Medications Medications (Trade) Dose Ordered Sig/Clint Route PRN Reason Start Time Stop Time Status Last Admin Dose Admin Acetaminophen (Tylenol) 650 mg Q4H PRN ORAL Mild Pain/Temp > 100.5 05/06/17 22:30 06/05/17 22:29 05/06/17 23:29 Albuterol/ Ipratropium (Albuterol/ Ipratropium) 3 ml Q6HRT HHN 05/05/17 19:00 05/10/17 18:59 05/07/17 15:15 Amoxicillin/ Clavulanate Potassium (Augmentin) 875 mg BID ORAL 05/08/17 18:00 05/13/17 09:01 Aspirin (ASA) 81 mg DAILY ORAL 05/06/17 01:00 06/05/17 00:59 05/08/17 09:06 Atorvastatin Calcium (Lipitor) 40 mg BEDTIME ORAL 05/06/17 21:00 06/05/17 20:59 05/07/17 22:37 Dextrose (Dextrose 50%) STAT PRN IV Hypoglycemia 05/06/17 01:45 06/05/17 01:44 Heparin Sodium (Porcine) (Heparin 5000 units/ml) 5,000 units EVERY 12 HOURS SUBQ 05/06/17 09:00 06/05/17 08:59 05/08/17 09:08 Insulin Aspart (NovoLOG) BEFORE MEALS AND HS SUBQ 05/06/17 06:30 06/05/17 06:29 05/08/17 06:25 Metoprolol Tartrate (Lopressor) 25 mg Q12HR ORAL 05/06/17 09:00 06/05/17 08:59 05/08/17 09:06 Piperacillin Sod/ Tazobactam Sod 4.5 gm/Sodium Chloride 110 ml @ 27.5 mls/hr EVERY 8 HOURS IVPB 05/05/17 22:00 05/12/17 21:59 05/08/17 06:25 Promethazine HCl/ Codeine (Phenergan with Codeine) 5 ml Q4H PRN ORAL For Cough 05/05/17 14:45 06/04/17 14:44 Tamsulosin HCl (Flomax) 0.4 mg BEDTIME ORAL 05/06/17 21:00 06/05/17 20:59 05/07/17 22:39 Araceli Mays M.D. May 08, 2017 09:52
[2017-05-08] MEDS ORDERED: Tubing IV Secondary IV ONE (10:49)
[2017-05-08] MEDS ORDERED: NS 500ML ONE (10:49)
[2017-05-08] MEDS ORDERED: Augmentin 875mg Tab ORAL SCH (18:00)
--- NOTE | 2017-05-08 22:45 | Discharge Summary ---
DATE OF ADMISSION: 05/05/2017 DATE OF DISCHARGE: 05/08/2017 REASON FOR ADMISSION: This is one of several admissions to [facility] of this 71- year-old patient because of suspected pneumonia. HISTORY OF PRESENT ILLNESS: Details of the event and circumstances that led the patient to be admitted to this medical unit can be found in the H and P. In brief, the patient is a resident of an extended care facility where he has been in stable condition over the last several weeks. He is known to have several chronic medical syndrome, but has been stable on his current medication. On the day of admission, he developed fever, tachycardia, tachypnea, and pulmonary congestion. He was transferred to [facility] ER, where he was suspected to have right lower lobe pneumonia and the patient was admitted. In addition, the patient was found to have elevated troponin. HOSPITAL COURSE: Upon admission, the patient underwent clinical, biological, and imaging study. Clinical assessment revealed the patient, by the time he came to the floor, was hemodynamically stable, afebrile with moderate leukocytosis. Repeat chest x-ray revealed no infiltrate. The patient's symptoms completely resolved. Fever resolved. Cough resolved. His resolved. He was placed on broad-spectrum IV antibiotic. He had been seen by the cardiac specialist and hatchery employee, but within 24 hours, he became completely asymptomatic. He is discharged now to a new extended care facility in [place] where he will resume to take his previous medication that will help a new primary care physician to assess to attend to his medical problem. Epi Nicholas M.D. DR: Noe JOB#: [id number] CC:
== END 2017-05-08 10:50 | DRG 871 ==
LOC: EDBD 23:25 → EMR 23:35 → 2E 05-05 00:20 → EDBEDREQSVC 05-05 00:22 → EDBEDREQ 05-05 04:57 → 2E 05-05 11:26 → EDBEDREQ 05-05 12:51
DX: A41.9 Sepsis, unspecified organism (principal); G93.40 Encephalopathy, unspecified; L89.150 Pressure ulcer of sacral region, unstageable; J18.9 Pneumonia, unspecified organism; I69.951 Hemiplegia and hemiparesis following unspecified cerebrovascular disease affecting right dominant side; E11.9 Type 2 diabetes mellitus without complications; L89.610 Pressure ulcer of right heel, unstageable; E86.0 Dehydration; I10 Essential (primary) hypertension; Z23 Encounter for immunization
CPT/HCPCS: 36415; 71045; 80053; 80061; 81003; 82550; 82553; 82962; 83605; 83880; 84443; 84484; 85025; 85610; 85730; 86705; 86709; 86803; 87040; 87070; 87081; 87086; 87181; 87205; 87340; 90630; 90732; 93005; 93306; 94640; 94664; J1815; J7620; J8499